=== PATIENT | female | born 1940 | race Caucasian/White ===

== ENCOUNTER 2016-12-12 17:48 | Inpatient (IN) | payer MEDICARE, BC ==
[~2016-12-12] VITALS: Ht 162.6 cm; Wt 70.0 kg
[~2016-12-12 17:48] MED LIST: ALBU8.5H3 IH; ALBU8.5H3 INH; AMIO200T2 PO; ASPI-650; CLOB60CR2 TOP; FERR28TA PO; FURO40TA4 PO; INSU100I14; INSU100I15; MTF1000T PO; MULT-115 PO; POTA20TA8 PO; PRED20TA PO; RIVA20TA PO; ROSU20TA PO; VALS1TAB80 PO
[2016-12-12] MEDS ORDERED: ASPIRIN 81 MG TAB PO STA (18:46)
[2016-12-12] MEDS ORDERED: SOD CHLORIDE 0.9% 1,000 ML IV STA (18:46)
[2016-12-12 18:53] LABS: ADD SCAN DIFF NO
[2016-12-12 18:57] LABS: ALBUMIN 4.1 g/dl (3.3-4.9); POTASSIUM 4.1 mmol/L (3.5-5.1)
[2016-12-12 18:59] LABS: BASOPHILS % 0.4 % (0.0-2.0); BILIRUBIN,INDIRECT 0.1 mg/dl (0-1.1); BILIRUBIN,TOTAL 0.1 mg/dl (0.2-1.3); CREATININE 1.84 mg/dl (0.44-1.00); EOSINOPHILS # 0.2 10^3/ul (0.0-0.5); EOSINOPHILS % 1.8 % (0.0-7.0); HEMATOCRIT 38.7 % (37.0-47.0); HEMOGLOBIN 12.2 g/dl (12.0-16.0); LYMPHOCYTES # 1.5 10^3/ul (0.8-2.9); LYMPHOCYTES % 14.1 % (15.0-51.0); MEAN CORPUSCULAR HEMOGLOBIN 26.8 pg (29.0-33.0); MEAN CORPUSCULAR HGB CONC 31.5 g/dl (32.0-37.0); MEAN CORPUSCULAR VOLUME 84.9 fl (82.0-101.0); MEAN PLATELET VOLUME 10.2 fl (7.4-10.4); MONOCYTES % 9.8 % (0.0-11.0); NEUTROPHIL # 7.6 10^3/ul (1.6-7.5); NEUTROPHILS % 73.5 % (39.0-77.0); PLATELET COUNT 309 10^3/UL (140-415); RED BLOOD COUNT 4.56 10^6/ul (4.20-5.40); RED CELL DISTRIBUTION WIDTH 16.1 % (11.5-14.5); WHITE BLOOD COUNT 10.3 10^3/ul (4.8-10.8)
[2016-12-12 19:00] LABS: ALBUMIN/GLOBULIN RATIO 1.13; CALCIUM 9.8 mg/dl (8.4-10.2); TOTAL PROTEIN 7.7 g/dl (6.1-8.1)
[2016-12-12 19:01] LABS: MAGNESIUM 2.1 mg/dl (1.7-2.5)
[2016-12-12 19:02] LABS: INR 1.05; PROTIME 13.7 Sec (12.2-14.2); PT RATIO 1.1
[2016-12-12 19:12] LABS: TROPONIN-I 0.028 ng/ml (0.00-0.12)
[2016-12-12] MEDS ORDERED: INSU100I12 SQ (19:25)
[2016-12-12] MEDS ORDERED: LANT3I SC (19:26)
[2016-12-12 19:27] LABS: PARTIAL THROMBOPLASTIN TIME 25.8 Sec (25.0-35.0)
[2016-12-12] MEDS ORDERED: RIVA15TA PO (19:27)
--- NOTE | 2016-12-12 19:37 | RADRPT ---
PROCEDURE: CT Brain without contrast. CLINICAL INDICATION: Stroke TECHNIQUE: A CT of the brain was performed on a [employer] 64-slice CT scanner utilizing axial imaging from the skull base through the vertex without IV contrast. Multiplanar reformatted images were made. Images were reviewed on a PACS workstation. The CTDIvol is 39.10 mGy and the DLP is 634 .23 mGycm. One of the following 3 dose reduction techniques were used: Automated exposure control; adjustment of the mA and/or kV according to patient size; or use of iterative reconstruction technique. COMPARISON: 09/19/2012 CT brain FINDINGS: There is no intracranial hemorrhage, mass effect, or midline shift. No extra-axial fluid collection is seen. The ventricles and sulci are age appropriate. Mild diffuse volume loss is present. Subtl e decreased attenuation is present in the bilateral centrum semiovale and periventricular white tavia er compatible with mild chronic microvascular ischemic disease. Mild vascular calcifications are pr esent of the bilateral intracranial internal carotid arteries and the bilateral vertebral arteries. The visualized scalp and calvarium are normal. The bilateral orbits orbits demonstrate sequela of p rior cataract surgery. The bilateral paranasal sinuses, mastoid air cells and middle ear cavities d emonstrate mild mucosal thickening in the right sphenoid sinus. IMPRESSION: 1. No evidence of acute intracranial hemorrhage, infarcts, or acute intracranial pathology. 2. Mild chronic microvascular ischemic disease and mild diffuse volume loss 3. Mild atherosclerotic vascular disease RPTAT: HDC .Aimee Brooke MD, Date Time Electronically viewed and signed by .Aimee Brooke MD, on 12/12/2016 19:37 .C/
--- NOTE | 2016-12-12 19:41 | RADRPT ---
PROCEDURE: XR Chest. CLINICAL INDICATION: Possible cerebrovascular accident. TECHNIQUE: Single frontal view of the chest was obtained COMPARISON: Chest dated 05/17/2009 and 12/28/2015. FINDINGS: Left anterior chest wall dual chamber cardiac pacer. Lead tips again seen over right atrium right v entricle. Cardiomegaly with atherosclerotic calcifications again seen in the thoracic aorta. Coarse dystrophic calcifications again project over the region of the left heart, similar in appearance to prior examinations. Findings otherwise nonspecific Bilateral patchy air space disease There is no pleural effusion or pneumothorax. IMPRESSION: Mild failure. RPTAT: [facility]U Physician Tiny Date Time Electronically viewed and signed by Physician Tiny on 12/12/2016 19:41 RS/
[2016-12-12] MEDS ORDERED: SOD CHLORIDE 0.9% 1,000 ML IV SCH (20:31)
[2016-12-12] MEDS ORDERED: ONDANSETRON 4 MG INJ IV PRN ×2 (21:00)
[2016-12-12] MEDS ORDERED: ROSUVASTATIN 10 MG TAB PO SCH (21:00)
[2016-12-12] MEDS ORDERED: NACL 0.9% 3 ML SYG IV SCH (21:00)
[2016-12-12] MEDS ORDERED: ACETAMINOPHEN 325 MG TAB PO PRN ×2 (21:00)
[2016-12-12] MEDS: ALBUTEROL HFA 8 GM INHALER INH SCH (21:00)
[2016-12-12 21:12] VITALS: TEMP 98
[2016-12-12] MEDS ORDERED: SALMETEROL/FLUTICASONE 250/50 INHA INH ONE (21:30)
[2016-12-12] MEDS ORDERED: DEXTROSE 50% 50 ML SYRINGE IV PRN ×2 (21:30)
[2016-12-12] MEDS ORDERED: RIVAROXABAN 15 MG TABLET PO ONE (21:30)
[2016-12-12] MEDS ORDERED: ASPIRIN 81 MG TAB PO ONE (21:30)
[2016-12-12] MEDS ORDERED: GLUCOSE GEL 15 GRAM TUBE PO PRN ×2 (21:30)
[2016-12-12] MEDS ORDERED: MONTELUKAST 10 MG TAB PO ONE (21:30)
[2016-12-12] MEDS ORDERED: GLUCAGON 1 MG INJ IM PRN (21:30)
[2016-12-12] MEDS ORDERED: GLUCOSE GEL 15 GRAM TUBE BUCCAL PRN (21:30)
[2016-12-12] MEDS ORDERED: PANTOPRAZOLE (EC) 40 MG TAB PO ONE (21:30)
--- NOTE | 2016-12-12 21:41 | HP ---
DATE OF ADMISSION: 12/12/2016 REASON FOR ADMISSION: Altered mental status, dysarthria and facial twitching. HISTORY OF PRESENT ILLNESS: This 76-year-old female was in her usual state of health until 4 days a go, when she said that she started feeling very tired. She then developed some facial twitching and difficulty finding words. The patient does have a history of a CVA. She also has vascular disease including coronary artery disease, having had a stent placement. She has chronic atrial fibrillati on and has been on Xarelto. She has a cardiac pacemaker. The patient as she talks to me is having trouble finding words. She is very forgetful. I told her that she would be admitted to the [facility], and by the time I was leaving, she had completely forgotten and asked me if she had an appointmen t to see me tomorrow in my office. The patient denies any loss of consciousness. I did speak to he r son. He said that she has been tired but she has not had any actual seizure activity, head trauma , loss of consciousness, etc. The patient lives with her . She has had difficulty getting u p from bed, but she says that when she is up, she is able to walk. She denies any headache. PAST MEDICAL HISTORY: Remarkable for hypertension; breast cancer, status post lumpectomy and radiat ion treatment in 1993; hyperlipidemia; allergic rhinitis; gastroesophageal reflux disease; iron defi ciency anemia; colon cancer; left lower lobe pneumonia; peripheral neuropathy; CVA; coronary artery disease; cardiac pacemaker; chronic atrial fibrillation; chronic kidney disease stage III; asthma wi th a chronic cough. SURGICAL HISTORY: Right lumpectomy in 1993, total abdominal hysterectomy with BSO in 1990, colon ca ncer resection in the year 1999, coronary artery stents, cardiac pacemaker. FAMILY HISTORY: Father at age 55 with a CVA. Mother age 65 of heart disease. SOCIAL HISTORY: The patient does not smoke. She was a smoker but stopped more than 10 years ago. Alcohol socially. MEDICATIONS: Include the followin. Albuterol inhaler 2 puffs q.i.d. p.r.n. 2. Xarelto 15 mg with dinner daily. 3. Amiodarone 200 mg daily. 4. Rosuvastatin 30 mg at bedtime. 5. Furosemide 40 mg three times a day. 6. Potassium chloride 30 mEq twice a day. 7. Lantus insulin 60 units at bedtime. 8. Humalog insulin 10 units subQ t.i.d. with each meal. 9. Metformin 1000 mg twice a day. 10. Singulair 10 mg a day. 11. Vitamin D 3000 units a day. 12. Symbicort 160/4.5 two puffs twice a day. PHYSICAL EXAMINATION: GENERAL: At this time reveals a well-developed obese female. No apparent distress. In speaking to her, she is having trouble finding some words. VITAL SIGNS: Temperature 97.7, pulse of 68, respirations 17, blood pressure 144/75, O2 saturation 9 7% on room air. HEAD: Normocephalic. EYES: Extraocular muscles intact. She has intermittent and episodic facial twitching. NOSE AND MOUTH: Normal. NECK: Supple. No neck vein distention. LUNGS: Clear to auscultation. HEART: Regular rhythm. No murmurs, gallops or rub. ABDOMEN: Soft with a bulging ventral hernia. No masses or megaly, nontender. EXTREMITIES: No peripheral edema. NEUROLOGIC: Cranial nerves seem intact. However, she has intermittent facial twitching. No obviou s focal neurologic deficits. She is able to move all extremities. She does not have any tremor act ivity at this time. LABORATORY TESTS: White blood count 10,300, hemoglobin 12.2, hematocrit 38.7, platelet count 309,00 0. Coagulation: INR 1.05. Sodium 141, potassium 4.1, BUN 40, creatinine 1.84, glucose of 81. IMAGING: CAT scan of the brain. No evidence of acute intracranial hemorrhage, infarcts or acute in tracranial pathology. Mild chronic microvascular ischemic disease and mild diffuse volume loss, mil d atherosclerotic vascular disease. IMPRESSION: This patient presents now with several outstanding neurologic abnormalities. She is cl early having some episodic facial twitching. She also has difficulty finding words and is having so me memory loss. She has no other focal neurologic deficits, and her CAT scan does not show any acut e infarct, hemorrhage or mass. She has had a stroke in the past. She is unable to have an MRI scan because of a pacemaker. She does have chronic atrial fibrillation. However, she has been on Xarel to daily. I am concerned that she may have had another stroke. I am also concerned about possibili ty of seizure activity with the facial twitching. She clearly has some recent memory loss and diffi culty finding words. PLAN: 1. Neurology consultation with Dr. Dwyer, who knows the patient from her previous CVA. 2. Continue her routine medication. 3. Sliding scale insulin coverage. 4. Speech therapy, physical therapy and occupational therapy. 5. Admit to telemetry bed. 6. Discussed with family. Dictated By: ZHOU VALDEZ MD, ND/MENDEL Conf#: [id number] DID#: [id number]
--- NOTE | 2016-12-12 21:43 | ERA ---
ER Documentation Chief Complaint Date/Time DATE: 12/12/16 TIME: 21:39 Chief Complaint ALOC W/ DYSPHAGIA X2 DAYS, HX STROKE HPI This is a 76-year-old female who 4 days ago at the onset of diffuse facial twitching. She describes the twitching as electric like twitch which causes her eyes to blink and cheeks to contract and jaw to contract. She is also having periods of word finding difficulty with some expressive aphasia. She feels generally weak but no focal weakness or neurological complaints. She is also having some episodes of blurry vision where she has poor distance judgment. She says she was reaching for a glass on the table had a hard time finding it due to her miss judging of the distance. No headaches no fever no neck pain no chest pain shortness of breath no cough no abdominal pain nausea vomiting or diarrhea. ROS All systems reviewed and are negative except as per history of present illness. Medications Home Meds Active Scripts Albuterol Sulfate* (Proair HFA*) 8.5 Gm Hfa.aer.ad, 2 PUFF INH Q4, #1 INHALER Prov:CAROLIN BERNAL DO 12/28/15 Reported Medications Rivaroxaban* (Xarelto*) 15 Mg Tablet, 15 MG PO DAILY, TAB 12/12/16 Insulin Glargine* (Lantus*) 100 Unit/Ml Soln, 16 UNIT SC QHS, #1 VIAL 12/12/16 Insulin Lispro (Humalog Kwikpen U-100) 100 Unit/1 Ml Insuln.pen, 10 UNIT SQ TID Y for WITH MEALS 12/12/16 Rosuvastatin Calcium* (Crestor*) 20 Mg Tablet, 30 MG PO QHS for 30 Days, #45 TAB 12/28/15 Amiodarone Hcl* (Amiodarone Hcl*) 200 Mg Tablet, 200 MG PO DAILY, #30 TAB 12/28/15 Potassium Chloride* (Klor-Con*) 10 Meq Tabsr, 30 MEQ PO BID, TAB.SA 12/28/15 Furosemide (Lasix) 40 Mg Tab, 40 MG PO TID 07/13/12 Metformin* (Glucophage*) 1,000 Mg Tablet, 1000 MG PO BID 11/06/10 Discontinued Reported Medications Insulin Lispro (Humalog) 100 U/Ml Insuln.pen 12/28/15 Insulin Glargine,Hum.rec.anlog (Lantus Solostar) 100 Units/Ml Pen 12/28/15 Rivaroxaban* (Xarelto*) 20 Mg Tablet, 20 MG PO WITH DINNER, TAB 12/28/15 Valsartan-Hydrochlorothiazide (Valsartan-HCTZ) 320-12.5 Mg Tablet, 1 TAB PO DAILY, #30 TAB 12/28/15 Clobetasol Propionate* (Clobetasol Propionate*) 60 Gm Cream.gm., 1 APPLIC TOP BID, TUB 12/28/15 Ferrous Sulfate (Ferrous Sulfate) 1 Tab Tablet, 1 TAB PO DAILY 07/16/12 Multivitamins (One Daily Multi-Vitamin) 1 Tab Tablet, 1 TAB PO DAILY 07/16/12 Albuterol Sulfate* (Proair HFA*) 8.5 Gm Hfa.aer.ad, 8.5 GM IH QID PRN 07/13/12 Aspirin (Aspirin) 81 Mg Tablet 11/06/10 Discontinued Scripts Prednisone* (Prednisone*) 20 Mg Tab, 40 MG PO DAILY for 4 Days, TAB Prov:CAROLIN BERNAL DO 12/28/15 Allergies Allergies: Coded Allergies: codeine (Verified Adverse Reaction, Intermediate, STOMACH ACHE, 12/12/16) PMhx/Soc History of Surgery: Yes ([employer] and pacemaker, mastectomy, colon resection) Anesthesia Reaction: No Hx Neurological Disorder: Yes (small stroke from before) Hx Respiratory Disorders: No Hx Cardiac Disorders: Yes (CAD, Hyperlipidemia) Hx Psychiatric Problems: No Hx Miscellaneous Medical Probl: No Hx Alcohol Use: No Hx Substance Use: No Hx Tobacco Use: No Smoking Status: Never smoker FmHx Family History: No coronary disease Physical Exam Vitals Vital Signs Date Time Temp Pulse Resp B/P Pulse Ox O2 Delivery O2 Flow Rate FiO2 12/12/16 21:12 98.0 72 16 148/74 100 Room Air 12/12/16 20:00 68 17 144/75 97 Room Air 12/12/16 18:26 97.7 69 18 140/69 99 Room Air 12/12/16 17:51 98.4 74 20 135/65 96 Physical Exam Const: Well-developed, well-nourished Head: Atraumatic, normocephalic Eyes: Normal Conjunctiva, PERRLA, EOMI, normal sclera, no nystagmus ENT: Normal External Ears, Nose and Mouth, moist mucus membranes. Neck: Full range of motion. No meningismus, no lymphadenopathy. Resp: Clear to auscultation bilaterally, no wheezing, rhonchi, rales Cardio: Regular rate and rhythm, no murmurs, S1 S2 present Abd: Soft, non tender x 4, non distended. Normal bowel sounds, no guarding or rebound, no pulsitile abdominal masses or bruits Skin: No petechiae or rashes, no ecchymosis , no maculopapular rash Back: No midline or flank tenderness Ext: No cyanosis, or edema, FROM x 4, normal inspection, neurovascularly intact x 4, slow speech is purposeful with some expressive aphasia at times and word finding difficulty, has intermittent random diffuse muscle spasm of the facial muscles Neur: Awake and alert, STR 5/5 x 4, sensation intact x 4, no focal findings, cerebellum intact Psych: Normal Mood and Affect Result Diagram: 12/12/16182312/12/161823 Results 24 hrs Laboratory Tests Test 12/12/16 18:24 Activated Partial Thromboplast Time 25.8Sec Alanine Aminotransferase (ALT/SGPT) 29IU/L Albumin 4.1g/dl Albumin/Globulin Ratio 1.13 Alkaline Phosphatase 77IU/L Anion Gap 21 Aspartate Amino Transf (AST/SGOT) 35IU/L Basophils # 0.010^3/ul Basophils % 0.4% Blood Urea Nitrogen 40mg/dl Calcium Level 9.8mg/dl Carbon Dioxide Level 25mmol/L Chloride Level 99mmol/L Creatinine 1.84mg/dl Direct Bilirubin 0.00mg/dl Eosinophils # 0.210^3/ul Eosinophils % 1.8% Globulin 3.60g/dl Glucose Level 81mg/dl Hematocrit 38.7% Hemoglobin 12.2g/dl INR International Normalized Ratio 1.05 Indirect Bilirubin 0.1mg/dl Lymphocytes # 1.510^3/ul Lymphocytes % 14.1% Magnesium Level 2.1mg/dl Mean Corpuscular Hemoglobin 26.8pg Mean Corpuscular Hemoglobin Concent 31.5g/dl Mean Corpuscular Volume 84.9fl Mean Platelet Volume 10.2fl Monocytes # 1.010^3/ul Monocytes % 9.8% Neutrophils # 7.610^3/ul Neutrophils % 73.5% Nucleated Red Blood Cells # 0.010^3/ul Nucleated Red Blood Cells % 0.0/100WBC Platelet Count 04503^3/UL Potassium Level 4.1mmol/L Prothrombin Time 13.7Sec Prothrombin Time Ratio 1.1 Red Blood Count 4.5610^6/ul Red Cell Distribution Width 16.1% Sodium Level 141mmol/L Total Bilirubin 0.1mg/dl Total Protein 7.7g/dl Troponin I 0.028ng/ml White Blood Count 10.310^3/ul Current Medications Medications (Trade) Dose Ordered Sig/Mahendra Route PRN Reason Start Time Stop Time Status Last Admin Dose Admin Sodium Chloride (NS) 1,000 ml @ 1,000 mls/hr Q1H STAT IV 12/12/16 18:46 12/12/16 19:45 DC 12/12/16 18:57 Aspirin 162 mg 162 mg ONCE STAT PO 12/12/16 18:46 12/12/16 18:49 DC 12/12/16 18:57 Sodium Chloride (NS) 1,000 ml @ 80 mls/hr [id number] IV 12/12/16 20:31 12/13/16 09:00 Ondansetron HCl (Zofran Inj) 4 mg ER BRIDGE PRN IV NAUSEA AND/OR VOMITING 12/12/16 21:00 12/13/16 20:59 Acetaminophen (Tylenol Tab) 650 mg ER BRIDGE PRN PO MILD PAIN/FEVER 12/12/16 21:00 12/13/16 20:59 IV Flush (NS 3 ml) 3 ml PER PROTOCOL IV 12/12/16 21:00 Ondansetron HCl (Zofran Inj) 4 mg Q6H PRN IV NAUSEA AND/OR VOMITING 12/12/16 21:00 Acetaminophen (Tylenol Tab) 650 mg Q6H PRN PO PAIN LEVEL 1-3 OR FEVER 12/12/16 21:00 Albuterol (Ventolin Hfa) 2 puff Q4 INH 12/12/16 21:00 Amiodarone HCl (Cordarone) 200 mg DAILY PO 12/13/16 09:00 Rivaroxaban (Xarelto) 15 mg WITH DINNER PO 12/13/16 18:00 Rosuvastatin Calcium (Crestor) 30 mg QHS PO 12/12/16 21:00 12/12/16 21:26 DC Pantoprazole (Protonix Tab) 40 mg ONCE ONCE PO 12/12/16 21:30 12/12/16 21:31 DC Aspirin (Aspirin) 81 mg ONCE ONCE PO 12/12/16 21:30 12/12/16 21:31 DC Rivaroxaban (Xarelto) 15 mg ONCE ONCE PO 12/12/16 21:30 12/12/16 21:31 DC Montelukast Sodium (Singulair) 10 mg ONCE ONCE PO 12/12/16 21:30 12/12/16 21:31 DC Insulin Aspart (Novolog Insulin Pen) NOVOLOG *MILD* ALGORITHM WITH MEALS BEDTIME SC 12/13/16 08:00 Salmeterol Xinafoate/ Fluticasone (Advair 250/50 Diskus) 1 inh ONCE ONCE INH 12/12/16 21:30 12/12/16 21:31 DC Miscellaneous Information 1 ea NOTE XX 12/12/16 21:30 Glucose (Glutose) 15 gm Q15M PRN PO DECREASED GLUCOSE 12/12/16 21:30 Glucose (Glutose) 22.5 gm Q15M PRN PO DECREASED GLUCOSE 12/12/16 21:30 Dextrose (D50w Syringe) 25 ml Q15M PRN IV DECREASED GLUCOSE 12/12/16 21:30 Dextrose (D50w Syringe) 50 ml Q15M PRN IV DECREASED GLUCOSE 12/12/16 21:30 Glucagon (Glucagen) 1 mg Q15M PRN IM DECREASED GLUCOSE 12/12/16 21:30 Glucose (Glutose) 15 gm Q15M PRN BUCCAL DECREASED GLUCOSE 12/12/16 21:30 Rosuvastatin Calcium (Crestor) 30 mg QHS PO 12/13/16 21:00 UNV Procedures/MDM PROCEDURE: CT Brain without contrast. CLINICAL INDICATION: Stroke TECHNIQUE: A CT of the brain was performed on a [employer] 64-slice CT scanner utilizing axial imaging from the skull base through the vertex without IV contrast. Multiplanar reformatted images were made. Images were reviewed on a PACS workstation. The CTDIvol is 39.10 mGy and the DLP is 634.23 mGycm. One of the following 3 dose reduction techniques were used: Automated exposure control; adjustment of the mA and/or kV according to patient size; or use of iterative reconstruction technique. COMPARISON: 09/19/2012 CT brain FINDINGS: There is no intracranial hemorrhage, mass effect, or midline shift. No extra- axial fluid collection is seen. The ventricles and sulci are age appropriate. Mild diffuse volume loss is present. Subtle decreased attenuation is present in the bilateral centrum semiovale and periventricular white matter compatible with mild chronic microvascular ischemic disease. Mild vascular calcifications are present of the bilateral intracranial internal carotid arteries and the bilateral vertebral arteries. The visualized scalp and calvarium are normal. The bilateral orbits orbits demonstrate sequela of prior cataract surgery. The bilateral paranasal sinuses , mastoid air cells and middle ear cavities demonstrate mild mucosal thickening in the right sphenoid sinus. IMPRESSION: 1. No evidence of acute intracranial hemorrhage, infarcts, or acute intracranial pathology. 2. Mild chronic microvascular ischemic disease and mild diffuse volume loss 3. Mild atherosclerotic vascular disease RPTAT: HDC .Aimee Brooke MD, Date Time Electronically viewed and signed by .Aimee Brooke MD, MD on 12/12/2016 19: 37 .C/ CC: LINDA AHUJA DO PROCEDURE: XR Chest. CLINICAL INDICATION: Possible cerebrovascular accident. TECHNIQUE: Single frontal view of the chest was obtained COMPARISON: Chest dated 05/17/2009 and 12/28/2015. FINDINGS: Left anterior chest wall dual chamber cardiac pacer. Lead tips again seen over right atrium right ventricle. Cardiomegaly with atherosclerotic calcifications again seen in the thoracic aorta. Coarse dystrophic calcifications again project over the region of the left heart, similar in appearance to prior examinations. Findings otherwise nonspecific Bilateral patchy air space disease There is no pleural effusion or pneumothorax. IMPRESSION: Mild failure. RPTAT: [facility]U Physician Tiny Date Time Electronically viewed and signed by Physician Tiny on 12/12/2016 19:41 RS/ CC: LINDA AHUJA DO Patient was seen by neurology and the primary care physician. Patient will get an EEG this could be a possible seizure. There is no evidence of calcium or magnesium abnormalities. Could be some type of tick but is likely some type of deep cerebral event. The patient does have a pacemaker which makes MRI limiting. We will admit to the hospital for further workup Departure Diagnosis: Primary Impression: CVA (cerebral vascular accident) Qualified Code: I63.9 - Cerebrovascular accident (CVA), unspecified mechanism Condition: Stable LINDA AHUJA DO Dec 12, 2016 21:43
[2016-12-12 22:43] VITALS: PULSE 72
[2016-12-12 22:48] VITALS: BP 182/78; RESP 20
[2016-12-13] VITALS (14 sets, daily range): BP systolic 121–167; BP diastolic 58–75; PULSE 60–75; RESP 16–20; Ht 162.6 cm; Wt 70.0 kg
[2016-12-13] MEDS: ALBUTEROL HFA 8 GM INHALER INH SCH ×6 (01:00→21:16)
--- NOTE | 2016-12-13 01:27 | SP ---
DATE OF PROCEDURE: REFERRING PHYSICIAN: Nasir Valdez MD Thank you for asking me to see the patient with you. HISTORY OF PRESENT ILLNESS: The patient is a 76-year-old with a past medical history of anticoagula tion. The patient on mechanical valve in which the patient had 3 days of word finding difficulty, e xpressive aphasia for 2 to 3 days in which the patient was admitted to the hospital today per Dr. Graf. He called me for more evaluation and treatment. The patient accompanied by her son in e room who stated the patient has 2 sisters and her calling him for these events in which he advised her to go to the emergency room for more evaluation and treatment. PAST MEDICAL HISTORY: Which include mechanical valve, anticoagulation, hypertension, dyslipidemia. MEDICATIONS: Per reconcile sheet. SOCIAL HISTORY: The patient lives with her , accompanied by her son. Does not smoke, does n ot drink, does not use any street drugs. PHYSICAL EXAMINATION: GENERAL: The patient is alert, awake, oriented for time, place, and person. She can follow simple commands without difficulty. She has word finding difficulty, lack of communication. CRANIAL NERVES: Cranial nerve II: Pupils equal on both sides, reactive to light. Cranial nerves I II, IV, and : Extraocular muscles. No nystagmus. Cranial nerve V: Equal sensation to face. Cr anial nerve VII: Symmetrical face. Cranial nerve VIII: Decreased hearing bilaterally. Cranial ne rves IX, X: Elevates palate. Cranial nerve XI: Elevates shoulder 5/5. Cranial nerve XII: With s traight tongue. MOTOR: Decreased right hand pearl maker, 4+/5. Sensation decreased for glove and sock area for light touc h and temperature. COORDINATION: [id number] test intact. HEART: Regular rate and rhythm. LUNGS: Equal breath sounds. ABDOMEN: Soft, lax, nondistended, nontender. ASSESSMENT AND PLAN 1. The patient is a 76-year-old lady with a past medical history with possibility of new-onset lucero sient ischemic attack versus stroke. The patient already on Xarelto, while adjusting her dose, she is getting 15 mg. 2. Possibility of underlying seizure activity. Follow up the patient with electroencephalogram for more evaluation and treatment. We will keep her on Keppra 500 mg twice a day. 3. We will keep the patient under fall precautions. Will order for her physical therapy for balanc e and gait evaluation. 4. History of aphasia. We will follow up the patient with speech therapy for more evaluation and t reatment. 5. We will follow up the patient with carotid Doppler and 2D echocardiogram. 6. I counseled the patient and her son about her status. Again, thank you for asking me to see the patient with you. Dictated By: KAITLIN JACK MD NA/NTS Conf#: [id number] DID#: [id number] CC: NASIR VALDEZ MD;*EndCC*
[2016-12-13] MEDS: AMIODARONE 200 MG TAB PO SCH (08:36)
[2016-12-13] MEDS: INSULIN ASPART [NOVOLOG] 3 ML PEN SC SCH ×4 (08:44→21:14)
--- NOTE | 2016-12-13 08:59 | PN ---
Date/Time of Note Date/Time of Note DATE: 12/13/16 TIME: 08:40 Assessment/Plan VTE Prophylaxis VTE Prophylaxis Intervention: other Lines/Catheters IV [facility]ter Type (from [facility]): [facility] Urinary Cath still in place: No Assessment/Plan Chief Complaint/Hosp Course 1. Suspect she has had a CVA. Rule out seizure activity. Her CAT scan is unremarkable. Cannot do a MRI because of pacemaker. Echocardiogram, carotid duplex scan ordered. Neurology evaluation in progress with EEG ordered. Will consult cardiology. 2. Controlled atrial fibrillation with pacemaker 3. Anticoagulated on Xarelto 4. Type 2 diabetes mellitus 5. Hypertension 6. Coronary artery disease status post stent placement 7. Asthma 8. Chronic kidney disease. Problems: Subjective 24 Hr Interval Summary Free Text/Dictation She is awake and responsive . She continues to have difficulty finding words. She continues to have episodic facial twitching. She is able to get up and walk. Constitutional: improved Respiratory: no complaints Cardiovascular: no complaints Gastrointestinal: no complaints Genitourinary: no complaints Neurologic: confusion Exam/Review of Systems Vital Signs Vitals Vital Signs Date Time Temp Pulse Resp B/P Pulse Ox O2 Delivery O2 Flow Rate FiO2 12/13/16 08:23 66 12/13/16 07:08 98.1 18 137/69 98 12/13/16 00:00 Room Air Intake and Output 12/12/16 12/12/16 12/13/16 15:00 23:00 07:00 Intake Total 1000 ml Balance 1000 ml Exam Constitutional: alert, obese Respiratory: clear to auscultation Cardiovascular: regular rate and rhythm Gastrointestinal: non-tender, soft Musculoskeletal: nl extremities to inspection 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 She is forgetful. She has episodic facial twitching. Results Result Diagram: 12/12/16182312/12/161823 Results 24 hrs Laboratory Tests Test 12/12/16 18:24 12/13/16 08:06 Activated Partial Thromboplast Time 25.8 Alanine Aminotransferase (ALT/SGPT) 29 Albumin 4.1 Albumin/Globulin Ratio 1.13 Alkaline Phosphatase 77 Anion Gap 21 H Aspartate Amino Transf (AST/SGOT) 35 Basophils # 0.0 Basophils % 0.4 Blood Urea Nitrogen 40 H Calcium Level 9.8 Carbon Dioxide Level 25 Chloride Level 99 Creatinine 1.84 H Direct Bilirubin 0.00 Eosinophils # 0.2 Eosinophils % 1.8 Globulin 3.60 H Glucose Level 81 Hematocrit 38.7 # Hemoglobin 12.2 # INR International Normalized Ratio 1.05 Indirect Bilirubin 0.1 Lymphocytes # 1.5 Lymphocytes % 14.1 L Magnesium Level 2.1 Mean Corpuscular Hemoglobin 26.8 L Mean Corpuscular Hemoglobin Concent 31.5 L Mean Corpuscular Volume 84.9 Mean Platelet Volume 10.2 # Monocytes # 1.0 H Monocytes % 9.8 Neutrophils # 7.6 H Neutrophils % 73.5 Nucleated Red Blood Cells # 0.0 Nucleated Red Blood Cells % 0.0 Platelet Count 309 Potassium Level 4.1 Prothrombin Time 13.7 Prothrombin Time Ratio 1.1 Red Blood Count 4.56 # Red Cell Distribution Width 16.1 #H Sodium Level 141 Total Bilirubin 0.1 L Total Protein 7.7 Troponin I 0.028 White Blood Count 10.3 Bedside Glucose 161 Medications Medications Current Medications Sodium Chloride (NS) 1,000 ml @ 80 mls/hr [id number] IV ; Start 12/12/16 at 20:31; Stop 12/13/16 at 09:00 Ondansetron HCl (Zofran Inj) 4 mg Q6H PRN IV NAUSEA AND/OR VOMITING; Start 12/12 at 21:00 Acetaminophen (Tylenol Tab) 650 mg Q6H PRN PO PAIN LEVEL 1-3 OR FEVER; Start at 21:00 Albuterol (Ventolin Hfa) 2 puff Q4 INH Last administered on 12/13/16t 05:31; Admin Dose 2 PUFF; Start 12/12/16 at 21:00 Amiodarone HCl (Cordarone) 200 mg DAILY PO ; Start 12/13/16 at 09:00 Miscellaneous Information 1 ea NOTE XX ; Start 12/12/16 at 21:30 Glucose (Glutose) 15 gm Q15M PRN PO DECREASED GLUCOSE; Start 12/12/16 at 21:30 Glucose (Glutose) 22.5 gm Q15M PRN PO DECREASED GLUCOSE; Start 12/12/16 at 21:30 Dextrose (D50w Syringe) 25 ml Q15M PRN IV DECREASED GLUCOSE; Start 12/12/16 at 21:30 Dextrose (D50w Syringe) 50 ml Q15M PRN IV DECREASED GLUCOSE; Start 12/12/16 at 21:30 Glucagon (Glucagen) 1 mg Q15M PRN IM DECREASED GLUCOSE; Start 12/12/16 at 21:30 Glucose (Glutose) 15 gm Q15M PRN BUCCAL DECREASED GLUCOSE; Start 12/12/16 at 21: 30 Rosuvastatin Calcium (Crestor) 30 mg QHS PO ; Start 12/13/16 at 21:00; Status UNV Miscellaneous Information (*Order Clarification Bulletin) ROSUVASTATIN 30MG: PLEASE HAVE FAM... Q8H XX Last administered on 12/13/16 08:30; Admin Dose 1 EA ; Start 12/13/16 at 08:30 ZHOU VALDEZ MD Dec 13, 2016 08:51
--- NOTE | 2016-12-13 09:38 | RADRPT ---
PROCEDURE: US Carotids. CLINICAL INDICATION: bruit , CVA TECHNIQUE: Multiple sonographic of the carotid bifurcation region and vertebral arteries were obta ined utilizing philippe scale, duplex and color-flow imaging. The images were reviewed on a PACS worksta tion. COMPARISON: No prior studies are available for comparison. FINDINGS: Evaluation of the right carotid bifurcation region reveals mild calcific atherosclerotic disease. Evaluation of the left carotid bifurcation region reveals mild calcific atherosclerotic disease. There is antegrade flow within the vertebral arteries bilaterally. RIGHT CAROTID MEASUREMENTS: Common Carotid Sauafe59 (cm/sec) Internal Carotid Artery - .6 (cm/sec) Internal Carotid Artery - mid63.5 (cm/sec) Internal Carotid Artery - zezqnm63.4 (cm/sec) Internal Carotid/Common Carotid1.16 LEFT CAROTID MEASUREMENTS: Common Carotid Uwmkjy20 (cm/sec) Internal Carotid Artery - tfvkwush99 (cm/sec) Internal Carotid Artery - mid66 (cm/sec) Internal Carotid Artery - eleapf34.4 (cm/sec) Internal Carotid/Common Carotid1.05 RPTAT: AA IMPRESSION: No evidence for hemodynamically significant stenosis in the bilateral internal carotid arteries - va lidated velocity measurements with angiographic measurements, velocity criteria are extrapolated fro m diameter data as defined by the Society of Radiologists in Ultrasound Consensus Conference Radiolo gy 2003; 229;340-346. This study does indirectly reference the measurement of the distal ICA diamet er as the denominator for stenosis measurement. Normal antegrade flow in the vertebral arteries bilaterally. .Deandre Bright MD, Date Time Electronically viewed and signed by .Deandre Bright MD, MD on 12/13/2016 09:38 .S/
[2016-12-13 10:17] LABS: ADD SCAN DIFF NO
[2016-12-13 10:19] LABS: BASOPHILS % 0.6 % (0.0-2.0); EOSINOPHILS # 0.2 10^3/ul (0.0-0.5); EOSINOPHILS % 3.7 % (0.0-7.0); HEMATOCRIT 34.7 % (37.0-47.0); HEMOGLOBIN 10.8 g/dl (12.0-16.0); LYMPHOCYTES # 1.1 10^3/ul (0.8-2.9); LYMPHOCYTES % 19.6 % (15.0-51.0); MEAN CORPUSCULAR HEMOGLOBIN 26.7 pg (29.0-33.0); MEAN CORPUSCULAR HGB CONC 31.1 g/dl (32.0-37.0); MEAN CORPUSCULAR VOLUME 85.7 fl (82.0-101.0); MONOCYTE # 0.6 10^3/ul (0.3-0.9); MONOCYTES % 10.7 % (0.0-11.0); NEUTROPHIL # 3.5 10^3/ul (1.6-7.5); NEUTROPHILS % 65.2 % (39.0-77.0); PLATELET COUNT 255 10^3/UL (140-415); RED BLOOD COUNT 4.05 10^6/ul (4.20-5.40); RED CELL DISTRIBUTION WIDTH 16.2 % (11.5-14.5); WHITE BLOOD COUNT 5.4 10^3/ul (4.8-10.8)
[2016-12-13 10:33] LABS: ALBUMIN 3.7 g/dl (3.3-4.9)
[2016-12-13 10:35] LABS: CREATININE 1.51 mg/dl (0.44-1.00)
[2016-12-13 10:36] LABS: ALBUMIN/GLOBULIN RATIO 1.42; CALCIUM 8.9 mg/dl (8.4-10.2); PHOSPHORUS 3.9 mg/dl (2.5-4.9); TOTAL PROTEIN 6.3 g/dl (6.1-8.1)
[2016-12-13 10:37] LABS: MAGNESIUM 1.9 mg/dl (1.7-2.5)
[2016-12-13 10:48] LABS: POTASSIUM 3.4 mmol/L (3.5-5.1)
--- NOTE | 2016-12-13 17:07 | CONS ---
Date/Time of Note Date/Time of Note DATE: 12/13/16 TIME: 16:46 Assessment/Plan Assessment/Plan Additional Assessment/Plan 76 yowf w/ CAD (s/p PCI), PAF (xarelto, amiodarone), s/p PPM, htn, and hld who presentes w/ facial twitches, word finding issues, and short tem memory loss. Overall presentation concerning for a stroke. ? if it possibly embolic vs due to small vessel disease. If considered embolic, pt is on xarelto already, and she states she is compliant. Pt is not on any meds that should interfere w/ xarelto (ie. rimfampin, carbamazepine, Sunriver's wort). Will review TTE, but could consider a SONNY to eval for possible xarelto failure (eval RASHARD) or look for other causes (ie. plaque in the aorta). Pt is in sinus rhythm on ECG and telemetry. Not clear at this point if this could be considered xarelto failure , but if that becomes a consideration, can change to eliquis or pradaxa (the most potent of the NOACs). Continue aspirin, statin, amiodarone and xarelto. Consultation Date/Type/Reason Admit Date/Time Dec 12, 2016 at 20:32 Date of Consultation: Dec 13, 2016 Type of Consultation: Cardiology Reason for Consultation afib, stroke Hx of Present Illness Complex 76 yowf w/ CAD (s/p PCI), PAF (xarelto, amiodarone), PPM, htn, and hld who presented b/c difficulty with facial twitching and wording finding for the last few days. In addition to that, pt is having issues with short term memory. She denies cp, sob, or palpitations. Pt states she has been compliant with her meds (she has a pillbox), including xarelto. Admission ECG reveals A-sensed and V-paced at 68. Telemetry also reveals mostly sinus rhythm. Carotid US does not reveal any severe stenosis. Constitutional: improved Respiratory: no complaints Cardiovascular: no complaints Gastrointestinal: no complaints Genitourinary: no complaints Neurologic: confusion Past Medical History CAD - PCI Afib (PAF) - on xarelto, amiodarone s/p PPM htn breast cancer (s/p lumpectomy in 94) hld GERD colon CA LLL PNA CKD Family History Significant Family History: no pertinent family hx Social History non-smoker Smoking Status: Never smoker Exam/Review of Systems Vital Signs Vitals Vital Signs Date Time Temp Pulse Resp B/P Pulse Ox O2 Delivery O2 Flow Rate FiO2 12/13/16 16:08 75 12/13/16 15:40 98.1 18 167/75 96 12/13/16 00:00 Room Air Intake and Output 12/12/16 12/12/16 12/13/16 15:00 23:00 07:00 Intake Total 1000 ml Balance 1000 ml Exam Constitutional: alert, No distress Head: atraumatic, normocephalic Eyes: nl sclera Neck: No jvd Respiratory: clear to auscultation Cardiovascular: other (2/6 AWA), regular rate and rhythm Extremities: No edema Neurological: other (answers questions appropriately; see neurologist's note for complete exam) Results A-sensed, V-paced @ 68 Result Diagram: 12/13/16 0935 12/13/16 0935 Results 24 hrs Laboratory Tests Test 12/12/16 18:24 12/13/16 08:06 12/13/16 09:35 12/13/16 11:25 Activated Partial Thromboplast Time 25.8 Alanine Aminotransferase (ALT/SGPT) 29 35 Albumin 4.1 3.7 Albumin/Globulin Ratio 1.13 1.42 Alkaline Phosphatase 77 70 Anion Gap 21 H 17 H Aspartate Amino Transf (AST/SGOT) 35 31 Basophils # 0.0 0.0 Basophils % 0.4 0.6 Blood Urea Nitrogen 40 H 31 H Calcium Level 9.8 8.9 Carbon Dioxide Level 25 25 Chloride Level 99 99 Creatinine 1.84 H 1.51 H Direct Bilirubin 0.00 0.00 Eosinophils # 0.2 0.2 Eosinophils % 1.8 3.7 Globulin 3.60 H 2.60 Glucose Level 81 233 #H Hematocrit 38.7 # 34.7 L Hemoglobin 12.2 # 10.8 L INR International Normalized Ratio 1.05 Indirect Bilirubin 0.1 0.0 Lymphocytes # 1.5 1.1 Lymphocytes % 14.1 L 19.6 Magnesium Level 2.1 1.9 Mean Corpuscular Hemoglobin 26.8 L 26.7 L Mean Corpuscular Hemoglobin Concent 31.5 L 31.1 L Mean Corpuscular Volume 84.9 85.7 Mean Platelet Volume 10.2 # 10.0 Monocytes # 1.0 H 0.6 Monocytes % 9.8 10.7 Neutrophils # 7.6 H 3.5 Neutrophils % 73.5 65.2 Nucleated Red Blood Cells # 0.0 0.0 Nucleated Red Blood Cells % 0.0 0.0 Platelet Count 309 255 Potassium Level 4.1 3.4 L Prothrombin Time 13.7 Prothrombin Time Ratio 1.1 Red Blood Count 4.56 # 4.05 L Red Cell Distribution Width 16.1 #H 16.2 H Sodium Level 141 138 Total Bilirubin 0.1 L 0.0 L Total Protein 7.7 6.3 # Troponin I 0.028 White Blood Count 10.3 5.4 # Bedside Glucose 161 279 H Parathyroid Hormone (Intact) Phosphorus Level 3.9 Medications Medications Current Medications Ondansetron HCl (Zofran Inj) 4 mg Q6H PRN IV NAUSEA AND/OR VOMITING; Start 12/12 at 21:00 Acetaminophen (Tylenol Tab) 650 mg Q6H PRN PO PAIN LEVEL 1-3 OR FEVER; Start at 21:00 Albuterol (Ventolin Hfa) 2 puff Q4 INH Last administered on 12/13/16 12:08; Admin Dose 2 PUFF; Start 12/12/16 at 21:00 Amiodarone HCl (Cordarone) 200 mg DAILY PO Last administered on 12/13/16 08:36 ; Admin Dose 200 MG; Start 12/13/16 at 09:00 Miscellaneous Information 1 ea NOTE XX ; Start 12/12/16 at 21:30 Glucose (Glutose) 15 gm Q15M PRN PO DECREASED GLUCOSE; Start 12/12/16 at 21:30 Glucose (Glutose) 22.5 gm Q15M PRN PO DECREASED GLUCOSE; Start 12/12/16 at 21:30 Dextrose (D50w Syringe) 25 ml Q15M PRN IV DECREASED GLUCOSE; Start 12/12/16 at 21:30 Dextrose (D50w Syringe) 50 ml Q15M PRN IV DECREASED GLUCOSE; Start 12/12/16 at 21:30 Glucagon (Glucagen) 1 mg Q15M PRN IM DECREASED GLUCOSE; Start 12/12/16 at 21:30 Glucose (Glutose) 15 gm Q15M PRN BUCCAL DECREASED GLUCOSE; Start 12/12/16 at 21: 30 Rosuvastatin Calcium (Crestor) 30 mg QHS PO ; Start 12/13/16 at 21:00; Status UNV Miscellaneous Information (*Order Clarification Bulletin) ROSUVASTATIN 30MG: PLEASE HAVE FAM... Q8H XX Last administered on 12/13/16t 16:11; Admin Dose 1 EA ; Start 12/13/16 at 08:30 IVAN LOVE Dec 13, 2016 17:07
[2016-12-13] MEDS: RIVAROXABAN 15 MG TABLET PO SCH (17:43)
[2016-12-13] MEDS ORDERED: ROSUVASTATIN 10 MG TAB PO SCH (21:00)
[2016-12-14] VITALS (12 sets, daily range): BP systolic 116–153; BP diastolic 56–69; PULSE 60–70; RESP 16–18
[2016-12-14] MEDS: ALBUTEROL HFA 8 GM INHALER INH SCH ×6 (01:00→23:53)
[2016-12-14 06:55] LABS: ADD SCAN DIFF NO
[2016-12-14 07:06] LABS: BASOPHILS % 0.6 % (0.0-2.0); EOSINOPHILS # 0.3 10^3/ul (0.0-0.5); EOSINOPHILS % 4.3 % (0.0-7.0); HEMATOCRIT 36.1 % (37.0-47.0); HEMOGLOBIN 11.3 g/dl (12.0-16.0); LYMPHOCYTES # 1.7 10^3/ul (0.8-2.9); LYMPHOCYTES % 24.3 % (15.0-51.0); MEAN CORPUSCULAR HEMOGLOBIN 26.7 pg (29.0-33.0); MEAN CORPUSCULAR HGB CONC 31.3 g/dl (32.0-37.0); MEAN CORPUSCULAR VOLUME 85.1 fl (82.0-101.0); MONOCYTE # 0.7 10^3/ul (0.3-0.9); MONOCYTES % 9.1 % (0.0-11.0); NEUTROPHIL # 4.4 10^3/ul (1.6-7.5); NEUTROPHILS % 61.4 % (39.0-77.0); PLATELET COUNT 288 10^3/UL (140-415); RED BLOOD COUNT 4.24 10^6/ul (4.20-5.40); RED CELL DISTRIBUTION WIDTH 16.2 % (11.5-14.5); WHITE BLOOD COUNT 7.2 10^3/ul (4.8-10.8)
[2016-12-14 07:18] LABS: ALBUMIN 3.6 g/dl (3.3-4.9); POTASSIUM 3.1 mmol/L (3.5-5.1)
[2016-12-14 07:20] LABS: CREATININE 1.48 mg/dl (0.44-1.00)
[2016-12-14 07:21] LABS: ALBUMIN/GLOBULIN RATIO 1.38; BILIRUBIN,INDIRECT 0.2 mg/dl (0-1.1); BILIRUBIN,TOTAL 0.2 mg/dl (0.2-1.3); CALCIUM 9.3 mg/dl (8.4-10.2); TOTAL PROTEIN 6.2 g/dl (6.1-8.1)
--- NOTE | 2016-12-14 07:50 | PN ---
DATE: REFERRING PHYSICIAN: Dr. Valdez. Thank you for asking me to see the patient with you. HISTORY OF PRESENT ILLNESS: The patient is 76 years old with underlying TIA in which the patient wi ll continue on Xarelto for that with the possibility of underlying seizure activity. We will follow up the patient with electroencephalogram which is still pending and will continue the patient on Ke ppra 500 mg twice a day. The patient was admitted to telemetry for more evaluation and treatment. PAST MEDICAL HISTORY: As above including hypertension, dyslipidemia, mechanical valve followed by Laura Valdez, diabetes type 2, atrial fibrillation with pacemaker, coronary artery disease status p ost stent, asthma, chronic kidney disease. On exam today, the patient is alert, awake, following simple commands. Cranial nerves II: Pupils e qual both sides, reactive to light. Cranial nerves III, IV and : Extraocular muscles intact. Cr anial nerve V: Equal sensation to face. Cranial nerve VII: Symmetrical face. Cranial nerve VIII: Decreased hearing bilaterally. Cranial nerves IX and X: Elevates palate. Cranial nerve XI: Caroline vates shoulder 5/5. Cranial nerve XII: With straight tongue. Motor: Decreased right hand care aide, 4 +/5. Sensation decreased for glove and sock area for light touch and temperature. Coordination: Fi [id number]-yv-[id number] test intact. HEART: Regular rate and rhythm. LUNGS: Equal breath sounds. ABDOMEN: Soft, relaxed, nondistended. No tenderness. ASSESSMENT AND PLAN 1. The patient is a 76 year old with underlying transient ischemic attack. Will continue the patie nt on Xarelto which is a good medication for stroke prophylaxis. 2. History of possible underlying seizure activity. Continue the patient on Keppra 500 mg twice a day and follow up the patient with electroencephalogram. 3. History of atrial fibrillation and pacemaker. 4. History of coronary artery disease. 5. Underlying aphasia. Will follow up the patient with speech therapy for more evaluation and joel tment. 6. For stroke workup will follow up the patient with carotid Doppler and 2D echocardiogram. Again, thank you, Dr. Valdez, for asking me to see the patient with you. Dictated By: KAITLIN DANIEL/MENDEL Conf#: [id number] DID#: [id number] CC: ZHOU VALDEZ MD; KAITLIN JACK MD;*EndCC*
[2016-12-14] MEDS: AMIODARONE 200 MG TAB PO SCH (09:15)
[2016-12-14] MEDS: INSULIN ASPART [NOVOLOG] 3 ML PEN SC SCH ×4 (09:22→20:47)
--- NOTE | 2016-12-14 12:38 | PN ---
Date/Time of Note Date/Time of Note DATE: 12/14/16 TIME: 12:35 Assessment/Plan VTE Prophylaxis VTE Prophylaxis Intervention: other (on oral anticoagulation) Lines/Catheters IV Catheter Type (from Nrsg): Peripheral IV Urinary Cath still in place: No Assessment/Plan Assessment/Plan 1. CVA/TIA - w/u so far negative including CT Brain, Carotid Doppler. Tele normal - await EEG to rule out seizure activity --> cont Keppra - await TTE - cont ASA, statin, xarelto, amiodarone - Cards on board, consider switching to other NOAC - [facility] consult placed 2. 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, nl mental status, nl speech, nl strength Results Result Diagram: 12/14/16 0611 12/14/16 0611 Results 24 hrs Laboratory Tests Test 12/13/16 16:49 12/13/16 21:10 12/14/16 01:35 12/14/16 06:11 Bedside Glucose 216 234 H 157 Alanine Aminotransferase (ALT/SGPT) 33 Albumin 3.6 Albumin/Globulin Ratio 1.38 Alkaline Phosphatase 66 Anion Gap 15 Aspartate Amino Transf (AST/SGOT) 26 Basophils # 0.0 Basophils % 0.6 Blood Urea Nitrogen 26 H Calcium Level 9.3 Carbon Dioxide Level 27 Chloride Level 101 Creatinine 1.48 H Direct Bilirubin 0.00 Eosinophils # 0.3 Eosinophils % 4.3 Globulin 2.60 Glucose Level 179 Hematocrit 36.1 L Hemoglobin 11.3 L Indirect Bilirubin 0.2 Lymphocytes # 1.7 Lymphocytes % 24.3 Mean Corpuscular Hemoglobin 26.7 L Mean Corpuscular Hemoglobin Concent 31.3 L Mean Corpuscular Volume 85.1 Mean Platelet Volume 10.0 Monocytes # 0.7 Monocytes % 9.1 Neutrophils # 4.4 Neutrophils % 61.4 Nucleated Red Blood Cells # 0.0 Nucleated Red Blood Cells % 0.0 Platelet Count 288 Potassium Level 3.1 L Red Blood Count 4.24 Red Cell Distribution Width 16.2 H Sodium Level 140 Total Bilirubin 0.2 Total Protein 6.2 White Blood Count 7.2 # Test 12/14/16 08:25 Bedside Glucose 186 Medications Medications Current Medications Ondansetron HCl (Zofran Inj) 4 mg Q6H PRN IV NAUSEA AND/OR VOMITING; Start 12/12 at 21:00 Acetaminophen (Tylenol Tab) 650 mg Q6H PRN PO PAIN LEVEL 1-3 OR FEVER; Start at 21:00 Albuterol (Ventolin Hfa) 2 puff Q4 INH Last administered on 12/14/16 09:14; Admin Dose 2 PUFF; Start 12/12/16 at 21:00 Amiodarone HCl (Cordarone) 200 mg DAILY PO Last administered on 12/14/16 09:15 ; Admin Dose 200 MG; Start 12/13/16 at 09:00 Miscellaneous Information 1 ea NOTE XX ; Start 12/12/16 at 21:30 Glucose (Glutose) 15 gm Q15M PRN PO DECREASED GLUCOSE; Start 12/12/16 at 21:30 Glucose (Glutose) 22.5 gm Q15M PRN PO DECREASED GLUCOSE; Start 12/12/16 at 21:30 Dextrose (D50w Syringe) 25 ml Q15M PRN IV DECREASED GLUCOSE; Start 12/12/16 at 21:30 Dextrose (D50w Syringe) 50 ml Q15M PRN IV DECREASED GLUCOSE; Start 12/12/16 at 21:30 Glucagon (Glucagen) 1 mg Q15M PRN IM DECREASED GLUCOSE; Start 12/12/16 at 21:30 Glucose (Glutose) 15 gm Q15M PRN BUCCAL DECREASED GLUCOSE; Start 12/12/16 at 21: 30 Rosuvastatin Calcium (Crestor) 30 mg QHS PO ; Start 12/13/16 at 21:00; Status UNV Miscellaneous Information (*Order Clarification Bulletin) ROSUVASTATIN 30MG: PLEASE HAVE FAM... Q8H XX Last administered on 12/13/16t 16:11; Admin Dose 1 EA ; Start 12/13/16 at 08:30 KATRIN BURTON MD Dec 14, 2016 12:38
--- NOTE | 2016-12-14 14:10 | CONS ---
Date/Time of Note Date/Time of Note DATE: 12/14/16 TIME: 14:08 Assessment/Plan Assessment/Plan Additional Assessment/Plan # Acute neuro changes- possible CVA however work up is negative. If final diagnosis is acute CVA would consider Eliquis # PAF # HTN # HL # CAD >> review echo >> await EEG >> await further neuro work up >> pt should be taking Xarelto at dinner time however she has been taking at bedtime. >> consider change to Eliquis if final diagnosis most consistent with CVA - however work up so far negative. Consultation Date/Type/Reason Admit Date/Time Dec 12, 2016 at 20:32 Initial Consult Date 12/13/16 Type of Consultation: Cardiology 24 HR Interval Summary Free Text/Dictation No new syx. Decreased syx Exam/Review of Systems Vital Signs Vitals Vital Signs Date Time Temp Pulse Resp B/P Pulse Ox O2 Delivery O2 Flow Rate FiO2 12/14/16 12:07 62 12/14/16 11:21 97.9 18 153/65 96 12/13/16 00:00 Room Air Intake and Output 12/13/16 12/13/16 12/14/16 15:00 23:00 07:00 Intake Total 950 ml 800 ml Balance 950 ml 800 ml Exam Constitutional: alert, oriented, well developed Psych: no complaints Eyes: nl conjunctiva ENMT: nl external ears & nose Neck: supple Respiratory: clear to auscultation, normal air movement Cardiovascular: regular rate and rhythm, No S3, No edema, No irregular rhythm Gastrointestinal: nl liver, spleen, other (obese), soft Extremities: normal pulses Neurological: MANAGER SERVICES II-XII intact, nl mental status Results Result Diagram: 12/14/16 0611 12/14/16 0611 Results 24 hrs Laboratory Tests Test 12/13/16 16:49 12/13/16 21:10 12/14/16 01:35 12/14/16 06:11 Bedside Glucose 216 234 H 157 Alanine Aminotransferase (ALT/SGPT) 33 Albumin 3.6 Albumin/Globulin Ratio 1.38 Alkaline Phosphatase 66 Anion Gap 15 Aspartate Amino Transf (AST/SGOT) 26 Basophils # 0.0 Basophils % 0.6 Blood Urea Nitrogen 26 H Calcium Level 9.3 Carbon Dioxide Level 27 Chloride Level 101 Creatinine 1.48 H Direct Bilirubin 0.00 Eosinophils # 0.3 Eosinophils % 4.3 Globulin 2.60 Glucose Level 179 Hematocrit 36.1 L Hemoglobin 11.3 L Indirect Bilirubin 0.2 Lymphocytes # 1.7 Lymphocytes % 24.3 Mean Corpuscular Hemoglobin 26.7 L Mean Corpuscular Hemoglobin Concent 31.3 L Mean Corpuscular Volume 85.1 Mean Platelet Volume 10.0 Monocytes # 0.7 Monocytes % 9.1 Neutrophils # 4.4 Neutrophils % 61.4 Nucleated Red Blood Cells # 0.0 Nucleated Red Blood Cells % 0.0 Platelet Count 288 Potassium Level 3.1 L Red Blood Count 4.24 Red Cell Distribution Width 16.2 H Sodium Level 140 Total Bilirubin 0.2 Total Protein 6.2 White Blood Count 7.2 # Test 12/14/16 08:25 12/14/16 12:51 Bedside Glucose 186 177 Medications Medications Current Medications Ondansetron HCl (Zofran Inj) 4 mg Q6H PRN IV NAUSEA AND/OR VOMITING; Start 12/12 at 21:00 Acetaminophen (Tylenol Tab) 650 mg Q6H PRN PO PAIN LEVEL 1-3 OR FEVER; Start at 21:00 Albuterol (Ventolin Hfa) 2 puff Q4 INH Last administered on 12/14/16 13:19; Admin Dose 2 PUFF; Start 12/12/16 at 21:00 Amiodarone HCl (Cordarone) 200 mg DAILY PO Last administered on 12/14/16 09:15 ; Admin Dose 200 MG; Start 12/13/16 at 09:00 Miscellaneous Information 1 ea NOTE XX ; Start 12/12/16 at 21:30 Glucose (Glutose) 15 gm Q15M PRN PO DECREASED GLUCOSE; Start 12/12/16 at 21:30 Glucose (Glutose) 22.5 gm Q15M PRN PO DECREASED GLUCOSE; Start 12/12/16 at 21:30 Dextrose (D50w Syringe) 25 ml Q15M PRN IV DECREASED GLUCOSE; Start 12/12/16 at 21:30 Dextrose (D50w Syringe) 50 ml Q15M PRN IV DECREASED GLUCOSE; Start 12/12/16 at 21:30 Glucagon (Glucagen) 1 mg Q15M PRN IM DECREASED GLUCOSE; Start 12/12/16 at 21:30 Glucose (Glutose) 15 gm Q15M PRN BUCCAL DECREASED GLUCOSE; Start 12/12/16 at 21: 30 Atorvastatin Calcium (Lipitor) 80 mg HS PO ; Start 12/14/16 at 21:00 GABRIELLE DAVID MD Dec 14, 2016 14:10
--- NOTE | 2016-12-14 14:55 | RADRPT ---
Echocardiogram Report Patient Name: NEYMAR AYALA Gender: Female Date: 1940 Study Date: 13-Dec-2016 Photographer Motion Picture: Yusuf Koehler JENNIFER Location: 506 Ref. Physician: ZHOU VALDEZ Quality: Good Procedures: Transthoracic echocardiogram with complete 2D, M-Mode, and doppler examination. Indications: Cerebrovascular Accident. 2D/M Mode Doppler Measurement Value Normal Ranges Measurement Value Normal Ranges LVIDd 2D 3.2 3.5 - 5.6 cm BRIGIDA Vmax 2.5 cm2 LVIDs 2D 1.5 2.1 - 4.1 cm BRIGIDA VTI 2.7 cm2 FS 2D 53.5 % AV Mean Edwin 1.2 m/sec LVPWd 2D 1.1 0.6 - 1.1 cm AV Mean PG 7.0 mmHg IVSd 2D 1.1 0.6 - 1.1 cm AV Peak Edwin 1.8 m/sec IVS/LVPW 2D 1.0 AV Peak PG 13.0 mmHg AoR Diam 2D 3.1 2.0 - 3.7 cm AV VTI 37.2 cm LA/Ao 2D 1 0 - 1 LVOT Mean Edwin 1.1 m/sec EDV 2D 31.6 cm3 LVOT Mean PG 5.0 mmHg ESV 2D 3.2 cm3 LVOT Peak Edwin 1.5 m/sec LA Dimen 2D 3.8 2.3 - 4.0 cm LVOT Peak PG 9.0 mmHg LVOT Diam 2.0 cm LVOT VTI 31.4 cm LVOT Area 3.1 cm2 MV PHT 83.0 msec MV Peak Edwin 2.3 m/sec MV Peak PG 22.0 mmHg MV Mean Edwin 1.4 m/sec MV Mean PG 9.0 mmHg MV Decel [place] 8 MV PHT Peak Edwin 2.3 m/sec MV PHT 83.0 msec MV VTI 71.9 cm MVA PHT 2.7 cm2 MVA VTI 1.4 cm TR Peak Edwin 3.4 m/sec TR Peak PG 47.0 mmHg RVSP 50.0 mmHg Findings Left Ventricle: Normal left ventricular systolic function. Normal left ventricular cavity size. Mild concentric left ventricular hypertrophy. Paradoxical septal motion consistent with RV pacemaker. Ejection fraction is visually estimated at 60 %. Tissue Doppler/Mitral Doppler indices are indeterminate in this study due to the presence of severe mitral anular calcification. Right Ventricle: Normal right ventricular size. Normal right ventricular systolic function. Pacemaker right heart. Left Atrium: There is severe enlargement of left atrium. LA Dimension6.80 cm. Right Atrium: The right atrium is normal in size. Mitral Valve: Mild mitral leaflet calcification. Severe mitral annular calcification. Mild to moderate mitral valve regurgitation. Moderate mitral stenosis. Mitral valve Max Velocity 2.28 m/sec. MaxPG 22.00 mmHg. MeanPG 9.00 mmHg. Mitral Valve Area by Continuity1.37 cm2. Aortic Valve: No significant aortic stenosis or insufficiency. Aortic cusps appear mildly calcified. Tricuspid Valve: Normal appearance of the tricuspid valve. Estimated peak PA systolic pressure 50 mmHg. There is mild tricuspid regurgitation. Pulmonic Valve: Normal pulmonic valve appearance. Pericardium: Normal pericardium with no significant pericardial effusion. Aorta: Normal aortic root. IVC: Normal size and normal respiratory collapse consistent with normal right atrial pressure. Conclusions 1.Normal left ventricular systolic function. Normal left ventricular cavity size. Mild concentric left ventricular hypertrophy. Paradoxical septal motion consistent with RV pacemaker. Ejection fraction is visually estimated at 60 %. Tissue Doppler/Mitral Doppler indices are indeterminate in this study due to the presence of severe mitral anular calcification. 2.Mild mitral leaflet calcification. Severe mitral annular calcification. Mild to moderate mitral valve regurgitation. Moderate mitral stenosis. Mitral valve Max Velocity 2.28 m/sec. MaxPG 22.00 mmHg. MeanPG 9.00 mmHg. Mitral Valve Area by Continuity1.37 cm2. 3.There is severe enlargement of left atrium. LA Dimension6.80 cm. 4.No significant aortic stenosis or insufficiency. Aortic cusps appear mildly calcified. 5.Normal appearance of the tricuspid valve. Estimated peak PA systolic pressure 50 mmHg. There is mild tricuspid regurgitation. Electronically Signed By: Gonzales Duncan 14-Dec-2016 14:53:48 -0800 Patient Name: NEYMAR AYALA Study Date: 13-Dec-2016 [id number]
[2016-12-14] MEDS: RIVAROXABAN 15 MG TABLET PO SCH (17:53)
[2016-12-14] MEDS: ATORVASTATIN 80 MG TAB PO SCH (20:44)
[2016-12-15] VITALS (11 sets, daily range): BP systolic 118–164; BP diastolic 57–80; PULSE 60–76; RESP 16–18
[2016-12-15] MEDS: ALBUTEROL HFA 8 GM INHALER INH SCH ×6 (01:00→20:24)
--- NOTE | 2016-12-15 04:18 | SP ---
DATE OF PROCEDURE: REFERRING PHYSICIAN: Dr. Gil Thank you for asking me to see the patient with you. HISTORY OF PRESENT ILLNESS: The patient is a 76-year-old with a TIA for which the patient is on Xar elto, history of seizure in the past for which the patient is on Keppra 500 twice a day. The patien t had electroencephalogram. PAST MEDICAL HISTORY: Which includes hypertension, dyslipidemia, mechanical valve disease, diabetes type 2, atrial fibrillation, pacemaker, coronary artery disease, post stent, asthma, chronic kidney disease. PHYSICAL EXAMINATION: GENERAL: On exam today, the patient is alert, awake, oriented for time, place, and person. Normal speech and normal language. CRANIAL NERVES: Cranial nerve II: Pupils equal on both sides, reactive to light. Cranial nerves I II, IV, and : Extraocular muscles intact. Cranial nerve V: Equal sensation to face. Cranial ne rve VII: Symmetrical face. Cranial nerve VIII: Equal hearing bilaterally. Cranial nerves IX, X: Elevates palate. Cranial nerve XI: Elevates shoulder 5/5. Cranial nerve XII: With straight tong ue. MOTOR: Decreased right hand model and pattern supervisor, 4+/5. Sensation decreased for glove and sock area for light touc h and temperature. COORDINATION: [id number] test intact. HEART: Regular rate and rhythm. LUNGS: Equal breath sounds. ABDOMEN: Soft, relaxed, nondistended. No tenderness. ASSESSMENT AND PLAN: 1. The patient is a 76-year-old with a past medical history of atrial fibrillation and coronary art jennyfer disease for which the patient is on Xarelto which is good for stroke prophylaxis with the possib ility of new-onset of transient ischemic attack. We will keep the patient on Xarelto for now, and marcelina moreland counseled the patient about the side effects of the medication. 2. History of seizure disorder. Keep the patient on Keppra 500 mg twice a day. EEG done today [facility] showed generalized slowing. No seizure activity is recorded. 3. History of atrial fibrillation and pacemaker for which the patient is on Xarelto. 4. History of coronary artery disease. 5. History of aphasia. We will follow up the patient with speech therapy for more evaluation and t reatment. 6. We will follow up the patient with gait evaluation and fall precaution for now. Again, thank you, Dr. Gil, for asking me to see the patient with you. Dictated By: KAITLIN DANIEL/MENDEL Conf#: [id number] DID#: [id number]
[2016-12-15] MEDS: AMIODARONE 200 MG TAB PO SCH (08:27)
[2016-12-15] MEDS: INSULIN ASPART [NOVOLOG] 3 ML PEN SC SCH ×4 (08:30→20:23)
--- NOTE | 2016-12-15 11:18 | PN ---
Date/Time of Note Date/Time of Note DATE: 12/15/16 TIME: 11:16 Assessment/Plan VTE Prophylaxis VTE Prophylaxis Intervention: other (on xarelto) Lines/Catheters IV Catheter Type (from Nrsg): Saline Lock Urinary Cath still in place: No Assessment/Plan Assessment/Plan 1. CVA/TIA - w/u negative including CT Brain, Carotid Doppler, EEG. ECHO with normal EF and moderate MR. Tele normal - cont Keppra per Neuro - cont ASA, statin, xarelto, amiodarone --> do not believe that this is TIA due to Xarelto failure. Patient was taking medication at bedtime instead of at dinner - await PT and [facility] evaluation 2. Afib - cont amio, xarelto Subjective 24 Hr Interval Summary Free Text/Dictation able to ambulate with assistance, but feels shaky at times. Constitutional: improved, no complaints Cardiovascular: no complaints Gastrointestinal: no complaints Neurologic: no complaints Exam/Review of Systems Vital Signs Vitals Vital Signs Date Time Temp Pulse Resp B/P Pulse Ox O2 Delivery O2 Flow Rate FiO2 12/15/16 08:09 60 12/15/16 07:27 98.3 18 118/57 94 12/13/16 00:00 Room Air Intake and Output 12/14/16 12/14/16 12/15/16 15:00 23:00 07:00 Intake Total 850 ml 200 ml Balance 850 ml 200 ml Exam Constitutional: alert, oriented, well developed Respiratory: clear to auscultation, normal air movement Cardiovascular: nl pulses, regular rate and rhythm Gastrointestinal: nl liver, spleen, non-tender, soft Neurological: FOUNDRY ENGINEER II-XII intact, nl mental status, nl speech, nl strength Results Result Diagram: 12/14/16 0611 12/14/16 0611 Results 24 hrs Laboratory Tests Test 12/14/16 12:51 12/14/16 17:09 12/14/16 20:47 12/15/16 08:09 Bedside Glucose 177 275 H 149 203 Medications Medications Current Medications Ondansetron HCl (Zofran Inj) 4 mg Q6H PRN IV NAUSEA AND/OR VOMITING; Start 12/12 at 21:00 Acetaminophen (Tylenol Tab) 650 mg Q6H PRN PO PAIN LEVEL 1-3 OR FEVER; Start at 21:00 Albuterol (Ventolin Hfa) 2 puff Q4 INH Last administered on 12/15/16 08:27; Admin Dose 2 PUFF; Start 12/12/16 at 21:00 Amiodarone HCl (Cordarone) 200 mg DAILY PO Last administered on 12/15/16 08:27 ; Admin Dose 200 MG; Start 12/13/16 at 09:00 Miscellaneous Information 1 ea NOTE XX ; Start 12/12/16 at 21:30 Glucose (Glutose) 15 gm Q15M PRN PO DECREASED GLUCOSE; Start 12/12/16 at 21:30 Glucose (Glutose) 22.5 gm Q15M PRN PO DECREASED GLUCOSE; Start 12/12/16 at 21:30 Dextrose (D50w Syringe) 25 ml Q15M PRN IV DECREASED GLUCOSE; Start 12/12/16 at 21:30 Dextrose (D50w Syringe) 50 ml Q15M PRN IV DECREASED GLUCOSE; Start 12/12/16 at 21:30 Glucagon (Glucagen) 1 mg Q15M PRN IM DECREASED GLUCOSE; Start 12/12/16 at 21:30 Glucose (Glutose) 15 gm Q15M PRN BUCCAL DECREASED GLUCOSE; Start 12/12/16 at 21: 30 Atorvastatin Calcium (Lipitor) 80 mg HS PO Last administered on 12/14/16 20:44 ; Admin Dose 80 MG; Start 12/14/16 at 21:00 KATRIN BURTON MD Dec 15, 2016 11:18
[2016-12-15] MEDS ORDERED: LEVETIRACETAM 500 MG TAB PO SCH (11:30)
--- NOTE | 2016-12-15 12:11 | CONS ---
Date/Time of Note Date/Time of Note DATE: 12/15/16 TIME: 12:03 Assessment/Plan Assessment/Plan Additional Assessment/Plan # Probable CVA given residual changes (worsened handwriting) however work up is negative. # PAF- given mitral stenosis she should ideally be on coumadin for AC. This is discussed with the pt. # Mitral stenosis- mild/moderate # HTN # HL # CAD >> Given finding of MS will recommend Coumadin >> Will start coumadin and transition off Xarelto >> Continue on cardiac meds >> left message with primary team Consultation Date/Type/Reason Admit Date/Time Dec 12, 2016 at 20:32 Initial Consult Date 12/13/16 Type of Consultation: Cardiology 24 HR Interval Summary Free Text/Dictation Pt feels well without any issues. She still has some residual decrease in her writing ability. Constitutional: improved Exam/Review of Systems Vital Signs Vitals Vital Signs Date Time Temp Pulse Resp B/P Pulse Ox O2 Delivery O2 Flow Rate FiO2 12/15/16 11:39 98.1 65 18 119/63 96 12/13/16 00:00 Room Air Intake and Output 12/14/16 12/14/16 12/15/16 15:00 23:00 07:00 Intake Total 850 ml 200 ml Balance 850 ml 200 ml Exam Constitutional: alert, oriented, well developed Psych: nl mood/affect, no complaints Head: normocephalic Eyes: nl conjunctiva ENMT: nl external ears & nose Respiratory: clear to auscultation Cardiovascular: regular rate and rhythm Gastrointestinal: nl liver, spleen, soft Musculoskeletal: nl extremities to inspection Neurological: DELI CUTTER SLICER II-XII intact Results Result Diagram: 12/14/16 0611 12/14/16 0611 Results 24 hrs Laboratory Tests Test 12/14/16 12:51 12/14/16 17:09 12/14/16 20:47 12/15/16 08:09 Bedside Glucose 177 275 H 149 203 Medications Medications Current Medications Ondansetron HCl (Zofran Inj) 4 mg Q6H PRN IV NAUSEA AND/OR VOMITING; Start 12/12 at 21:00 Acetaminophen (Tylenol Tab) 650 mg Q6H PRN PO PAIN LEVEL 1-3 OR FEVER; Start at 21:00 Albuterol (Ventolin Hfa) 2 puff Q4 INH Last administered on 12/15/16 08:27; Admin Dose 2 PUFF; Start 12/12/16 at 21:00 Amiodarone HCl (Cordarone) 200 mg DAILY PO Last administered on 12/15/16 08:27 ; Admin Dose 200 MG; Start 12/13/16 at 09:00 Miscellaneous Information 1 ea NOTE XX ; Start 12/12/16 at 21:30 Glucose (Glutose) 15 gm Q15M PRN PO DECREASED GLUCOSE; Start 12/12/16 at 21:30 Glucose (Glutose) 22.5 gm Q15M PRN PO DECREASED GLUCOSE; Start 12/12/16 at 21:30 Dextrose (D50w Syringe) 25 ml Q15M PRN IV DECREASED GLUCOSE; Start 12/12/16 at 21:30 Dextrose (D50w Syringe) 50 ml Q15M PRN IV DECREASED GLUCOSE; Start 12/12/16 at 21:30 Glucagon (Glucagen) 1 mg Q15M PRN IM DECREASED GLUCOSE; Start 12/12/16 at 21:30 Glucose (Glutose) 15 gm Q15M PRN BUCCAL DECREASED GLUCOSE; Start 12/12/16 at 21: 30 Atorvastatin Calcium (Lipitor) 80 mg HS PO Last administered on 12/14/16 20:44 ; Admin Dose 80 MG; Start 12/14/16 at 21:00 Levetiracetam (Keppra) 500 mg BID PO ; Start 12/15/16 at 11:30 GABRIELLE DAVID MD Dec 15, 2016 12:11
[2016-12-15] MEDS: ENOXAPARIN 80 MG/0.8 ML SYG SC SCH (14:52)
[2016-12-15] MEDS ORDERED: WARFARIN 2 MG TAB PO ONE (17:00)
[2016-12-15] MEDS ORDERED: WARFARIN 5 MG TAB GTB SCH (17:00)
[2016-12-15] MEDS: ATORVASTATIN 80 MG TAB PO SCH (20:22)
--- NOTE | 2016-12-15 23:12 | CONS ---
DATE OF ADMISSION: 12/12/2016 DATE OF CONSULTATION: REFERRING PHYSICIAN: Nasir Valdez MD Thank you for asking me to see the patient with you. HISTORY OF PRESENT ILLNESS: The patient is a 76-year-old lady with a past medical history of: 1. Atrial fibrillation, the patient with anticoagulation in the form of Xarelto for stroke prophyla xis in which the patient has new symptoms of transient ischemic attack versus stroke in which I came see the patient about the benefit of Xarelto as well as all of the side effect about the medication in which she agreed to continue on it, which we also discussed with Dr. Valdez. 2. Seizure disorder. Give the patient Keppra 500 mg. Electroencephalogram was done. It does not show seizure activity. However, it shows generalized slowing, which would be consistent with underl nilesh ____ disorder in which we will follow up the patient in outpatient clinic. 3. History of atrial fibrillation with the patient on Xarelto for treatment for that. 4. History of coronary artery disease. Keep the patient with anticoagulation and ____ about the he art disease which could be a precipitating factor for strokes. 5. History of dyslipidemia. We will follow up the patient with lipid panel, maximize her status. 6. History of diabetes. We counseled the patient about the importance of taking her medication. F ollow up with hemoglobin A1c as well as testing blood sugar. 7. We will keep the patient under fall precautions as well as aspiration precaution. Please add the physical exam from [id number] ____ in which the physical exam did not change. Again, thank you for asking me to see the patient with you. Dictated By: KAITLIN JACK MD NA/NTS Conf#: [id number] DID#: [id number] CC: NASIR VALDEZ MD;*EndCC*
[2016-12-16] VITALS (11 sets, daily range): BP systolic 119–153; BP diastolic 58–71; PULSE 59–74; RESP 18–22
[2016-12-16] MEDS: ALBUTEROL HFA 8 GM INHALER INH SCH ×6 (01:29→20:38)
--- NOTE | 2016-12-16 07:02 | SP ---
DATE OF PROCEDURE: NAME OF PROCEDURE: Electroencephalogram. REFERRING PHYSICIAN: Dr. Gil. Thank you for asking me to see the patient with you. HISTORY OF PRESENT ILLNESS: The patient is 76 years old with a new onset of right-sided numbness, p ossibility of underlying seizure. TECHNIQUE: EEG done using 10-20 International electrode system with photic stimulation. FINDINGS: Bilateral occipital hemisphere view shows theta waves 6 to 7 Hz low amplitude, asymmetric bilateral. Photic stimulation done did not elicit a drive. No epileptiform discharge or seizure a ctivity is recorded. IMPRESSION: This is a normal electroencephalogram, showed generalized slowing consistent with a his tory of underlying encephalopathy. No epileptiform discharge or seizure activity is recorded. Foll owup EEG may be needed if clinically indicated. Again, thank you for asking me to see the patient with you. Dictated By: KAITLIN DANIEL/MENDEL Conf#: [id number] DID#: [id number]
[2016-12-16 07:47] LABS: INR 1.13; PROTIME 14.5 Sec (12.2-14.2); PT RATIO 1.1
[2016-12-16] MEDS: AMIODARONE 200 MG TAB PO SCH (08:45)
[2016-12-16] MEDS: ENOXAPARIN 80 MG/0.8 ML SYG SC SCH (08:47)
[2016-12-16] MEDS: INSULIN ASPART [NOVOLOG] 3 ML PEN SC SCH ×4 (08:48→20:32)
--- NOTE | 2016-12-16 09:17 | PN ---
Date/Time of Note Date/Time of Note DATE: 12/16/16 TIME: 09:11 Assessment/Plan VTE Prophylaxis VTE Prophylaxis Intervention: other Lines/Catheters IV [facility] Saline Lock Urinary Cath still in place: No Assessment/Plan Chief Complaint/Hosp Course 1. Suspect she has had a CVA. Rule out seizure activity, EEG is normal. Her CAT scan is unremarkable. Cannot do a MRI because of pacemaker. Echocardiogram shows severe mitral annular calcification with mitral regurg and moderate mitral stenosis, carotid duplex scan does not show any hemodynamically significant stenosis . Because of the mitral valvular disease cardiology has recommended that the patient be on warfarin instead of Xarelto. She is now on Coumadin and Lovenox and off Xarelto. 2. Controlled atrial fibrillation with pacemaker 3. Anticoagulated on Lovenox bridging and warfarin being loaded 4. Type 2 diabetes mellitus 5. Hypertension 6. Coronary artery disease status post stent placement 7. Asthma 8. Chronic kidney disease. Problems: Subjective 24 Hr Interval Summary Free Text/Dictation She is awake and alert today. She seems more lucid. She seems to have less trouble finding words. The twitching in her face is much less. Constitutional: improved, no complaints Gastrointestinal: no complaints Genitourinary: no complaints Musculoskeletal: no complaints Neurologic: other Exam/Review of Systems Vital Signs Vitals Vital Signs Date Time Temp Pulse Resp B/P Pulse Ox O2 Delivery O2 Flow Rate FiO2 12/16/16 08:30 71 12/16/16 07:14 98.2 18 128/60 98 12/13/16 00:00 Room Air Intake and Output 12/15/16 12/15/16 12/16/16 15:00 23:00 07:00 Intake Total 950 ml 120 ml Balance 950 ml 120 ml Exam Constitutional: alert, oriented, well developed Head: normocephalic Respiratory: clear to auscultation, normal air movement Cardiovascular: regular rate and rhythm Gastrointestinal: soft Musculoskeletal: nl extremities to inspection Results Result Diagram: 12/14/16 0611 12/14/16 0611 Results 24 hrs Laboratory Tests Test 12/15/16 12:03 12/15/16 17:30 12/15/16 20:20 12/16/16 01:30 Bedside Glucose 266 H 177 229 H 173 Test 12/16/16 06:20 12/16/16 08:12 INR International Normalized Ratio 1.13 Prothrombin Time 14.5 H Prothrombin Time Ratio 1.1 Bedside Glucose 220 Medications Medications Current Medications Ondansetron HCl (Zofran Inj) 4 mg Q6H PRN IV NAUSEA AND/OR VOMITING; Start 12/12 at 21:00 Acetaminophen (Tylenol Tab) 650 mg Q6H PRN PO PAIN LEVEL 1-3 OR FEVER; Start at 21:00 Albuterol (Ventolin Hfa) 2 puff Q4 INH Last administered on 12/16/16 08:44; Admin Dose 2 PUFF; Start 12/12/16 at 21:00 Amiodarone HCl (Cordarone) 200 mg DAILY PO Last administered on 12/16/16 08:45 ; Admin Dose 200 MG; Start 12/13/16 at 09:00 Miscellaneous Information 1 ea NOTE XX ; Start 12/12/16 at 21:30 Glucose (Glutose) 15 gm Q15M PRN PO DECREASED GLUCOSE; Start 12/12/16 at 21:30 Glucose (Glutose) 22.5 gm Q15M PRN PO DECREASED GLUCOSE; Start 12/12/16 at 21:30 Dextrose (D50w Syringe) 25 ml Q15M PRN IV DECREASED GLUCOSE; Start 12/12/16 at 21:30 Dextrose (D50w Syringe) 50 ml Q15M PRN IV DECREASED GLUCOSE; Start 12/12/16 at 21:30 Glucagon (Glucagen) 1 mg Q15M PRN IM DECREASED GLUCOSE; Start 12/12/16 at 21:30 Glucose (Glutose) 15 gm Q15M PRN BUCCAL DECREASED GLUCOSE; Start 12/12/16 at 21: 30 Atorvastatin Calcium (Lipitor) 80 mg HS PO Last administered on 12/15/16 20:22 ; Admin Dose 80 MG; Start 12/14/16 at 21:00 Enoxaparin Sodium (Lovenox) 70 mg DAILY SC Last administered on 12/16/16 08:47 ; Admin Dose 70 MG; Start 12/15/16 at 13:39 Insulin Glargine (Lantus) 16 unit DAILY@20 SC ; Start 12/16/16 at 20:00 Warfarin Sodium (Coumadin) 5 mg DAILY@17 PO ; Start 12/16/16 at 17:00 ZHOU VALDEZ MD Dec 16, 2016 09:16
--- NOTE | 2016-12-16 13:01 | CONS ---
Date/Time of Note Date/Time of Note DATE: 12/16/16 TIME: 12:59 Assessment/Plan Assessment/Plan Chief Complaint/Hosp Course # Possible CVA- no acute abnl on head ct, carotid u/s negative. pt with paf and mitral valve disease. was on noac, now switched to coumadin # PAF- given mitral stenosis she should ideally be on coumadin for stroke prophy # Mitral stenosis- mild/moderate # HTN # HL # CAD >> Given finding of MS will anticoag for afib with coumadin with goal inr 2.0 to 3.0, given recent neuro changes will need briding with loveno >> cont on statin >> cont amio as per outpt mgmt Problems: Consultation Date/Type/Reason Admit Date/Time Dec 12, 2016 at 20:32 Initial Consult Date 12/13/16 Type of Consultation: Cardiology 24 HR Interval Summary Free Text/Dictation no acute events. pt denies cp/sob/palpitations. pt reports some residual expressive aphasia. Detailed Summary ENT: no complaints Respiratory: no complaints Cardiovascular: no complaints Gastrointestinal: no complaints Exam/Review of Systems Vital Signs Vitals Vital Signs Date Time Temp Pulse Resp B/P Pulse Ox O2 Delivery O2 Flow Rate FiO2 12/16/16 12:20 74 12/16/16 11:04 97.7 18 153/71 94 12/13/16 00:00 Room Air Intake and Output 12/15/16 12/15/16 12/16/16 15:00 23:00 07:00 Intake Total 950 ml 120 ml Balance 950 ml 120 ml Exam Constitutional: alert, oriented, well developed Psych: nl mood/affect, no complaints Head: normocephalic Eyes: nl conjunctiva ENMT: nl external ears & nose Respiratory: clear to auscultation Cardiovascular: regular rate and rhythm Gastrointestinal: nl liver, spleen, soft Musculoskeletal: nl extremities to inspection Neurological: RN PRODUCTION II-XII intact Results Result Diagram: 12/14/16 0611 12/14/16 0611 Results 24 hrs Laboratory Tests Test 12/15/16 17:30 12/15/16 20:20 12/16/16 01:30 12/16/16 06:20 Bedside Glucose 177 229 H 173 INR International Normalized Ratio 1.13 Prothrombin Time 14.5 H Prothrombin Time Ratio 1.1 Test 12/16/16 08:12 12/16/16 11:27 Bedside Glucose 220 317 H Medications Medications Current Medications Ondansetron HCl (Zofran Inj) 4 mg Q6H PRN IV NAUSEA AND/OR VOMITING; Start 12/12 at 21:00 Acetaminophen (Tylenol Tab) 650 mg Q6H PRN PO PAIN LEVEL 1-3 OR FEVER; Start at 21:00 Albuterol (Ventolin Hfa) 2 puff Q4 INH Last administered on 12/16/16 12:17; Admin Dose 2 PUFF; Start 12/12/16 at 21:00 Amiodarone HCl (Cordarone) 200 mg DAILY PO Last administered on 12/16/16 08:45 ; Admin Dose 200 MG; Start 12/13/16 at 09:00 Miscellaneous Information 1 ea NOTE XX ; Start 12/12/16 at 21:30 Glucose (Glutose) 15 gm Q15M PRN PO DECREASED GLUCOSE; Start 12/12/16 at 21:30 Glucose (Glutose) 22.5 gm Q15M PRN PO DECREASED GLUCOSE; Start 12/12/16 at 21:30 Dextrose (D50w Syringe) 25 ml Q15M PRN IV DECREASED GLUCOSE; Start 12/12/16 at 21:30 Dextrose (D50w Syringe) 50 ml Q15M PRN IV DECREASED GLUCOSE; Start 12/12/16 at 21:30 Glucagon (Glucagen) 1 mg Q15M PRN IM DECREASED GLUCOSE; Start 12/12/16 at 21:30 Glucose (Glutose) 15 gm Q15M PRN BUCCAL DECREASED GLUCOSE; Start 12/12/16 at 21: 30 Atorvastatin Calcium (Lipitor) 80 mg HS PO Last administered on 12/15/16 20:22 ; Admin Dose 80 MG; Start 12/14/16 at 21:00 Enoxaparin Sodium (Lovenox) 70 mg DAILY SC Last administered on 12/16/16 08:47 ; Admin Dose 70 MG; Start 12/15/16 at 13:39 Insulin Glargine (Lantus) 16 unit DAILY@20 SC ; Start 12/16/16 at 20:00 Warfarin Sodium (Coumadin) 5 mg DAILY@17 PO ; Start 12/16/16 at 17:00 Procedures Procedures carotid doppler images reviewed: no hd significant lesion tele reviewed:NSR with pace rhythm PAUL COWAN Dec 16, 2016 13:01
[2016-12-16] MEDS ORDERED: WARFARIN 5 MG TAB PO SCH (17:00)
--- NOTE | 2016-12-16 19:20 | PDOCDIS ---
Discharge Instructions CONDITION Patient Condition: Good HOME CARE INSTRUCTIONS: Diet Instructions: Reduced CalorieSpecial Diet: RENAL 1800 CALORIE DIET ACTIVITY: Activity Restrictions: Slowly Increase Activity Rest between Activity Avoid heavy lifting Weight Bearing Bathing Restrictions: Shower FOLLOW UP/APPOINTMENTS Appointments ZHOU Gabriel MD Dec 16, 2016 19:20
[2016-12-16] MEDS ORDERED: INSULIN GLARGINE [LANtus] 3 ML PEN SC SCH (20:00)
[2016-12-16] MEDS: ATORVASTATIN 80 MG TAB PO SCH (20:15)
--- NOTE | 2016-12-16 22:43 | PN ---
DATE: REFERRING PHYSICIAN: Dr. Valdez. HISTORY OF PRESENT ILLNESS: The patient is 76 years old, admitted to [facility] w ith the possibility of underlying TIA versus stroke in which the patient initially was on Xarelto, i n which the patient switched from Xarelto to Coumadin and keep her INR between 2 to 3 for stroke pro phylaxis. CURRENT MEDICATIONS: Include: 1. Insulin Lantus 16 units subcutaneous once a day. 2. Coumadin 5 mg once a day. 3. Lovenox 70 mg daily. 4. Lipitor 80 mg once a day. 5. Cordarone 200 mg once a day. 6. Zofran 4 mg every 6 hours as needed. 7. Tylenol as needed. 8. Albuterol inhaler. PHYSICAL EXAMINATION: GENERAL: Today, the patient is alert, awake, oriented for time, place, and person. Normal speech a nd normal language. CRANIAL NERVES: Cranial nerve II: Pupils equal on both sides, reactive to light. Cranial nerves I II, IV, and : Extraocular muscles intact. Cranial nerve V: Equal sensation to face. Cranial ne rve VII: Symmetrical face. Cranial nerve VIII: Decreased hearing bilaterally. Cranial nerves IX, X: Elevates palate. Cranial nerve XI: Elevates shoulder 5/5. Cranial nerve XII: Straight tongu e. MOTOR: Decreased right hand maintenance instructor, 4+/5. SENSATION: Decreased for glove and sock area for light touch and temperature. COORDINATION: Fbcdok-fu-gnub test intact. HEART: Regular rate and rhythm. LUNGS: Equal breath sounds. ABDOMEN: Soft, relaxed, nondistended. No tenderness. ASSESSMENT AND PLAN: 1. The patient is 76 years old with underlying stroke with mitral valve disease in which the patien t switched to warfarin instead of Xarelto and keep the INR between 2 to 3 as well as Lovenox until C oumadin will be in therapeutic range. 2. History of controlled atrial fibrillation, which the patient has the pacemaker. 3. Diabetes in which the patient is on sliding scale insulin and Lantus. 4. Hypertension. Keep the blood pressure at the level of 140/90 or less to avoid any extension of her stroke. 5. History of coronary artery disease. Follow up the patient with cardiology. The patient is stat us post stent in the past. 6. History of asthma in the past as well as chronic renal disease. Again, thank you, Dr. Valdez, for asking me to see the patient with you. Dictated By: KAITLIN DANIEL/NTS Conf#: [id number] DID#: [id number] CC: ZHOU VALDEZ MD;*EndCC*
== END 2016-12-16 21:05 | DRG 66 ==
LOC: E/R 17:48 → TEL 20:32
PROVIDERS: ADMIT Internal Medicine; ATTEND Internal Medicine
DX: I63.9 Cerebral infarction, unspecified (principal); E11.22 Type 2 diabetes mellitus with diabetic chronic kidney disease; I48.0 Paroxysmal atrial fibrillation; I48.2 Chronic atrial fibrillation; N18.3 Chronic kidney disease, stage 3 (moderate); R47.01 Aphasia; I12.9 Hypertensive chronic kidney disease with stage 1 through stage 4 chronic kidney disease, or unspecified chronic kidney disease; E78.5 Hyperlipidemia, unspecified; I25.10 Atherosclerotic heart disease of native coronary artery without angina pectoris; I05.0 Rheumatic mitral stenosis; D50.9 Iron deficiency anemia, unspecified; K21.9 Gastro-esophageal reflux disease without esophagitis; J45.909 Unspecified asthma, uncomplicated; G40.909 Epilepsy, unspecified, not intractable, without status epilepticus; Z79.01 Long term (current) use of anticoagulants; Z79.4 Long term (current) use of insulin; Z79.82 Long term (current) use of aspirin; Z79.02 Long term (current) use of antithrombotics/antiplatelets; Z95.0 Presence of cardiac pacemaker; Z90.11 Acquired absence of right breast and nipple; Z95.5 Presence of coronary angioplasty implant and graft; Z87.891 Personal history of nicotine dependence; Z85.3 Personal history of malignant neoplasm of breast; Z85.038 Personal history of other malignant neoplasm of large intestine
CPT/HCPCS: 36415; 70450; 71010; 80053; 82962; 83735; 83970; 84100; 84484; 85025; 85610; 85730; 92610; 93005; 93306; 93880; 95819; 96360; 97110; 97116; 97163; 97530; J1815; J7030

== ENCOUNTER 2016-12-16 18:16 | Inpatient (IN) | payer MEDICARE, BC ==
[~2016-12-16] VITALS: Ht 162.6 cm; Wt 87.7 kg
[~2016-12-16 18:16] MED LIST changes: -ALBU8.5H3 IH; -ASPI-650; -CLOB60CR2 TOP; -FERR28TA PO; +INSU100I12 SQ; -INSU100I14; -INSU100I15; +LANT3I SC; -MULT-115 PO; -PRED20TA PO; +RIVA15TA PO; -RIVA20TA PO; -VALS1TAB80 PO
[2016-12-16 22:08] VITALS: Ht 162.6 cm; Wt 87.7 kg
[2016-12-16] MEDS ORDERED: ACETAMINOPHEN 325 MG TAB PO PRN (22:11)
[2016-12-16] MEDS ORDERED: INSULIN GLARGINE [LANtus] 3 ML PEN SC SCH (22:11)
[2016-12-16] MEDS ORDERED: GLUCOSE GEL 15 GRAM TUBE BUCCAL PRN (22:11)
[2016-12-16] MEDS ORDERED: GLUCAGON 1 MG INJ IM PRN (22:11)
[2016-12-16] MEDS ORDERED: ALBUTEROL HFA 8 GM INHALER INH SCH (22:11)
[2016-12-16] MEDS ORDERED: DEXTROSE 50% 50 ML SYRINGE IV PRN ×2 (22:11)
[2016-12-16] MEDS ORDERED: WARFARIN 5 MG TAB PO SCH (22:11)
[2016-12-16] MEDS ORDERED: GLUCOSE GEL 15 GRAM TUBE PO PRN ×2 (22:11)
[2016-12-16 22:41] VITALS: BP 134/65; RESP 20
[2016-12-17 01:48] LABS: ADD UMIC YES; URINE BILIRUBIN (Dip) NEGATIVE (NEGATIVE); URINE BLOOD (Dip) TRACE (NEGATIVE); URINE COLOR LT. YELLOW (YELLOW); URINE GLUCOSE (Dip) NEGATIVE (NEGATIVE); URINE KETONES (Dip) NEGATIVE (NEGATIVE); URINE LEUKOCYTE ESTERASE (Dip) NEGATIVE (NEGATIVE); URINE NITRITE (Dip) NEGATIVE (NEGATIVE); URINE TOTAL PROTEIN (Dip) NEGATIVE (NEGATIVE); URINE UROBILINOGEN (Dip) 0.2 E.U./dL (0.1-1.0)
[2016-12-17 02:17] LABS: BACTERIA,URINE OCCASIONAL; SQUAMOUS EPITHELIAL CELL,UR MODERATE; URINE RBCS 0-2 /HPF (0)
[2016-12-17] MEDS ORDERED: ALBUTEROL HFA 8 GM INHALER INH PRN (07:30)
[2016-12-17] MEDS: INSULIN ASPART [NOVOLOG] 3 ML PEN SC SCH ×4 (08:03→20:39)
[2016-12-17] MEDS: AMIODARONE 200 MG TAB PO SCH (08:04)
[2016-12-17] MEDS: ENOXAPARIN 80 MG/0.8 ML SYG SC SCH (08:05)
[2016-12-17 08:24] VITALS: BP 126/61; RESP 18
[2016-12-17 12:22] LABS: ADD SCAN DIFF NO
[2016-12-17 12:28] LABS: BASOPHILS % 0.6 % (0.0-2.0); EOSINOPHILS # 0.3 10^3/ul (0.0-0.5); EOSINOPHILS % 4.3 % (0.0-7.0); HEMATOCRIT 36.5 % (37.0-47.0); HEMOGLOBIN 11.3 g/dl (12.0-16.0); LYMPHOCYTES # 1.5 10^3/ul (0.8-2.9); LYMPHOCYTES % 22.3 % (15.0-51.0); MEAN CORPUSCULAR HEMOGLOBIN 26.1 pg (29.0-33.0); MEAN CORPUSCULAR VOLUME 84.3 fl (82.0-101.0); MEAN PLATELET VOLUME 10.8 fl (7.4-10.4); MONOCYTE # 0.5 10^3/ul (0.3-0.9); MONOCYTES % 7.5 % (0.0-11.0); NEUTROPHIL # 4.3 10^3/ul (1.6-7.5); NEUTROPHILS % 65.1 % (39.0-77.0); PLATELET COUNT 272 10^3/UL (140-415); RED BLOOD COUNT 4.33 10^6/ul (4.20-5.40); RED CELL DISTRIBUTION WIDTH 15.8 % (11.5-14.5); WHITE BLOOD COUNT 6.5 10^3/ul (4.8-10.8)
[2016-12-17 12:39] LABS: ALBUMIN 3.8 g/dl (3.3-4.9); POTASSIUM 3.9 mmol/L (3.5-5.1)
[2016-12-17 12:40] LABS: INR 1.21; PROTIME 15.4 Sec (12.2-14.2); PT RATIO 1.2
[2016-12-17 12:42] LABS: ALBUMIN/GLOBULIN RATIO 1.46; BILIRUBIN,INDIRECT 0.2 mg/dl (0-1.1); BILIRUBIN,TOTAL 0.2 mg/dl (0.2-1.3); CALCIUM 9.3 mg/dl (8.4-10.2); CREATININE 1.26 mg/dl (0.44-1.00); TOTAL PROTEIN 6.4 g/dl (6.1-8.1)
--- NOTE | 2016-12-17 13:03 | CONS ---
DATE OF ADMISSION: 12/16/2016 DATE OF CONSULTATION: 12/17/2016 REHABILITATION IMPAIRMENT CATEGORY: Infarct/CVA. ACTIVE COMORBIDITIES: 1. Atrial fibrillation. 2. Hypertension. 3. Coronary artery disease. 4. Diabetes mellitus. 5. Gastroesophageal reflux disease. 6. Hyperlipidemia. 7. Chronic kidney disease. 8. Peripheral neuropathy. 9. Anemia 10. History of colon carcinoma and resection. 11. History of left lower lobe pneumonia. 12. History of pacemaker placement. 13. History of asthma. 14. Impairments in self-care, mobility, and communication. HISTORY OF PRESENT ILLNESS: The patient is a pleasant 76-year-old female with history of multiple medical comorbidities including chronic atrial fibrillation with pacemaker placement, who was admitted with facial twitching, word finding deficits, and some right-sided weakness. Head CT was negative for bleed, and an MRI was unable to be performed due to pacemaker. The patient was felt likely to have CVA. Patient with notable significant impairments in self-care, mobility, and communication as compared to baseline, and has been cleared to transfer to the rehabilitation unit for comprehensive interdisciplinary rehab care. FUNCTIONAL HISTORY: Prior to recent events, she was independent in self-care tasks and mobility. Currently, the patient requires moderate assist for self- care, minimal assist for mobility tasks. I have reviewed the preadmission screen and the patient's current functional status is consistent with the preadmission screen. SOCIAL HISTORY: The patient lives at home, and hopes to return there upon discharge. PAST MEDICAL HISTORY: 1. Hypertension. 2. Gastroesophageal reflux disease. 3. Anemia. 4. History of colon carcinoma with resection. 5. History of breast carcinoma with lumpectomy and radiation. 6. Peripheral neuropathy. 7. History of coronary artery disease. 8. History of cerebrovascular accident with good functional recovery. 9. Chronic atrial fibrillation with history of pacemaker. 10. History of chronic kidney disease. CURRENT MEDICATIONS: 1. Albuterol inhaler. 2. Cordarone 200 mg p.o. daily. 3. Lipitor 80 mg p.o. at bedtime. 4. Lovenox 70 mg subcutaneous daily. 5. Insulin sliding scale. 6. Lantus 16 units subcutaneous daily. 7. Coumadin dose adjusted. ALLERGIES: CODEINE. PHYSICAL EXAMINATION: VITAL SIGNS: The patient is currently afebrile with stable vital signs. HEENT: Extraocular motions intact. Oropharynx clear. NECK: Supple. LUNGS: Clear anteriorly. CARDIAC: S1, S2. ABDOMEN: Soft, nontender, positive bowel sounds. NEUROLOGIC: She is awake and alert and oriented to person and hospital. She will follow simple 1-step commands. She has some word finding deficits. She demonstrates antigravity strength in bilateral upper extremities and lower extremities.. She does have impaired dynamic balance. PLAN: The patient has been admitted for comprehensive interdisciplinary acute rehab and is anticipated to tolerate 3 hours of daily therapy in divided doses for at least 5/7 days a week. Treatment plan will include: 1. Physical therapy to focus on bed mobility, transfers, and household ambulation with the goal of having the patient reach standby assist level. 2. Occupational therapy to focus on hygiene, grooming, dressing, bathing, and toileting activities, with the goal of having the patient reach standby assist level. 3. Rehabilitation nursing for carryover of therapeutic interventions, the goal of continent of bowel and bladder, and the goal of pain adequately managed on oral medications. 4. Speech therapy to focus on full cognitive and communication assessment, with the goal of having the patient return to baseline. ESTIMATED LENGTH OF STAY: 10 days. DISPOSITION GOAL: Home. Rehabilitation Barrier: communication Intervention for barrier: Speech Therapy I acknowledge that I performed a full physical examination on this patient within 24 hours of admission to the rehabilitation unit, and believe the patient is a good candidate for comprehensive interdisciplinary rehab care, and is anticipated to make reasonable goals in a reasonable period of time as outlined above. Dictated By: SOPHIE YEAGER/MENDEL Conf#: [id number] DID#: [id number] MTDD
--- NOTE | 2016-12-17 13:46 | CONS ---
Date/Time of Note Date/Time of Note DATE: 12/17/16 TIME: 13:35 Assessment/Plan Assessment/Plan Chief Complaint/Hosp Course #1 cerebrovascular accident versus transient ischemic attack with altered mental status, altered speech pattern, facial twitching. All of these symptoms seem to have improved. She is overall doing much better. Her speech is more fluent and the facial twitching has decreased significantly. The patient is here for the comprehensive rehabilitation program. #2 history of atrial fibrillation on Coumadin and Lovenox now. We are attempting to get her INR in the therapeutic range. She is on Lovenox for bridging. She was previously on Xarelto. She was found to have moderate mitral stenosis and switched to Coumadin by the cooling system operator. #3 hypertension blood pressure is controlled #4 type 2 diabetes mellitus #5 cardiac pacemaker #6 coronary artery disease status post stent placement #7 anemia #8 history of breast cancer #9 history of colon cancer status post resection. Problems: Consultation Date/Type/Reason Admit Date/Time Dec 16, 2016 at 21:30 Initial Consult Date 24 HR Interval Summary Free Text/Dictation She is now on the acute rehabilitation unit in the hospital. She is sitting up talking to her . Her speech is much more fluent and she seems overall better. Constitutional: improved, no complaints Exam/Review of Systems Vital Signs Vitals Vital Signs Date Time Temp Pulse Resp B/P Pulse Ox O2 Delivery O2 Flow Rate FiO2 12/17/16 08:24 98.5 64 18 126/61 97 Exam Constitutional: alert, obese, oriented, well developed Psych: nl mood/affect, no complaints Respiratory: clear to auscultation, normal air movement Cardiovascular: nl pulses, regular rate and rhythm Gastrointestinal: soft Extremities: edema Results Result Diagram: 12/17/16 1159 12/17/16 1115 Results 24 hrs Laboratory Tests Test 12/16/16 23:30 12/17/16 07:28 12/17/16 11:15 12/17/16 11:55 Urine Bacteria OCCASIONAL Urine Bilirubin NEGATIVE Urine Clarity CLEAR Urine Color LT. YELLOW Urine Glucose NEGATIVE Urine Hemoglobin TRACE Urine Ketones NEGATIVE Urine Leukocyte Esterase NEGATIVE Urine Microscopic RBC 0-2 Urine Microscopic WBC 2-5 Urine Nitrite NEGATIVE Urine Specific [place] 1.020 Urine Squamous Epithelial Cells MODERATE Urine Total Protein NEGATIVE Urine Urobilinogen 0.2 E.U./dL Urine pH 5.5 Bedside Glucose 199 210 Alanine Aminotransferase (ALT/SGPT) 37 Albumin 3.8 Albumin/Globulin Ratio 1.46 Alkaline Phosphatase 76 Anion Gap 16 Aspartate Amino Transf (AST/SGOT) 28 Blood Urea Nitrogen 19 Calcium Level 9.3 Carbon Dioxide Level 28 Chloride Level 96 L Creatinine 1.26 H Direct Bilirubin 0.00 Globulin 2.60 Glucose Level 205 Indirect Bilirubin 0.2 Potassium Level 3.9 Sodium Level 136 Total Bilirubin 0.2 Total Protein 6.4 Test 12/17/16 11:59 Basophils # 0.0 Basophils % 0.6 Eosinophils # 0.3 Eosinophils % 4.3 Hematocrit 36.5 L Hemoglobin 11.3 L INR International Normalized Ratio 1.21 Lymphocytes # 1.5 Lymphocytes % 22.3 Mean Corpuscular Hemoglobin 26.1 L Mean Corpuscular Hemoglobin Concent 31.0 L Mean Corpuscular Volume 84.3 Mean Platelet Volume 10.8 H Monocytes # 0.5 Monocytes % 7.5 Neutrophils # 4.3 Neutrophils % 65.1 Nucleated Red Blood Cells # 0.0 Nucleated Red Blood Cells % 0.0 Platelet Count 272 Prothrombin Time 15.4 H Prothrombin Time Ratio 1.2 Red Blood Count 4.33 Red Cell Distribution Width 15.8 H White Blood Count 6.5 Medications Medications Current Medications Acetaminophen (Tylenol Tab) 650 mg Q6H PRN PO PAIN LEVEL 1-3 OR FEVER; Start at 22:11 Amiodarone HCl (Cordarone) 200 mg DAILY PO Last administered on 12/17/16t 08:04 ; Admin Dose 200 MG; Start 12/16/16 at 22:11 Glucose (Glutose) 15 gm Q15M PRN PO DECREASED GLUCOSE; Start 12/16/16 at 22:11 Glucose (Glutose) 22.5 gm Q15M PRN PO DECREASED GLUCOSE; Start 12/16/16 at 22:11 Dextrose (D50w Syringe) 25 ml Q15M PRN IV DECREASED GLUCOSE; Start 12/16/16 at 22:11 Dextrose (D50w Syringe) 50 ml Q15M PRN IV DECREASED GLUCOSE; Start 12/16/16 at 22:11 Glucagon (Glucagen) 1 mg Q15M PRN IM DECREASED GLUCOSE; Start 12/16/16 at 22:11 Glucose (Glutose) 15 gm Q15M PRN BUCCAL DECREASED GLUCOSE; Start 12/16/16 at 22: 11 Atorvastatin Calcium (Lipitor) 80 mg HS PO ; Start 12/16/16 at 22:11 Enoxaparin Sodium (Lovenox) 70 mg DAILY SC Last administered on 12/17/16t 08:05 ; Admin Dose 70 MG; Start 12/16/16 at 22:11 Insulin Glargine (Lantus) 16 unit DAILY@20 SC ; Start 12/16/16 at 22:11 Warfarin Sodium (Coumadin) 5 mg DAILY@17 PO ; Start 12/16/16 at 22:11 Miscellaneous Information (*Order Clarification Bulletin) MEDICATION REQUIRES CLARIFICATION:XARE... Q8H XX ; Start 12/16/16 at 22:30 ZHOU VALDEZ MD Dec 17, 2016 13:45
[2016-12-17] MEDS ORDERED: WARFARIN 7.5 MG TAB PO ONE (17:00)
[2016-12-17 19:46] VITALS: BP 134/62; RESP 20
[2016-12-17] MEDS: ATORVASTATIN 80 MG TAB PO SCH (20:25)
--- NOTE | 2016-12-18 06:36 | CONS ---
DATE OF ADMISSION: 12/16/2016 DATE OF CONSULTATION: REFERRING PHYSICIAN: Louise SUBJECTIVE: The patient is a 76-year-old lady admitted with 1. Cerebrovascular accident, TIA in which the patient already on anticoagulation in the form of Xar elto which we switched to Coumadin in which the patient has ambulation difficulty with balance issue s for which the patient was admitted to acute rehab for more evaluation and treatment. 2. History of atrial fibrillation for which the patient is on Coumadin and Lovenox. Keep the INR b etween 2 to 3 level. We will keep her on Lovenox until we get acceptable, reasonable dose of Coumad in for her as the patient has atrial fibrillation as well as moderate mitral valve stenosis. 3. History of hypertension. Keep the blood pressure at the level of 140/90 to avoid any extension of stroke. 4. History of diabetes. Keep the patient with sliding scale insulin and follow up the patient with hemoglobin A1c and fasting blood sugar. 5. History of colon cancer status post resection as well as breast carcinoma. The patient will start on acute rehab to evaluate her balance and gait for more evaluation and treat ment. OBJECTIVE: GENERAL: The patient is alert, awake, and oriented to time, place, and person. Normal speech and n ormal language. CRANIAL NERVE EXAMINATION: Cranial nerves II: Pupils equal on both sides, reactive to light. Cran ial nerves III, IV, and : Extraocular muscles intact. Cranial nerve VII: Equal sensation to fac e. Symmetrical face. Cranial nerve VIII: Equal hearing bilaterally. Cranial nerve IX, X, XI: El evates palate. Cranial nerve XII: Elevates shoulders. 5/5 gloves, straight tongue. Motor examina tion: Decreased right hand principal secretary, 4+/5 sensation and principal secretary for glove and sock area for light touch, t emperature, coordination. Zririv-va-cgho is intact. HEART: Regular rate and rhythm. LUNGS: Equal breath sounds. ABDOMEN: Soft, nondistended, no tenderness. ASSESSMENT AND PLAN: The patient is a 76-year-old with 1. Decreased mental status probably secondary to old stroke. Keep the patient on acute rehab in ich she will have physical therapy and occupational therapy. 2. History of atrial fibrillation. We will keep the patient on anticoagulation in the form of Coum patrick, keep INR between 2 to 3, and continue Lovenox from now until the Coumadin is being in therapeu tic level. 3. History of seizure disorder on which her electroencephalogram is stable, and we will continue th e patient on seizure precautions for now. Again, thank you for asking me to see the patient with you. Dictated By: KAITLIN DANIEL/MENDEL Conf#: [id number] DID#: [id number]
[2016-12-18 07:30] VITALS: BP 124/98; RESP 18
[2016-12-18] MEDS: INSULIN ASPART [NOVOLOG] 3 ML PEN SC SCH ×6 (08:04→21:00)
[2016-12-18] MEDS: ENOXAPARIN 80 MG/0.8 ML SYG SC SCH (08:05)
[2016-12-18] MEDS: AMIODARONE 200 MG TAB PO SCH (08:06)
[2016-12-18] MEDS: FUROSEMIDE 20 MG TAB PO SCH (08:06)
[2016-12-18 08:18] LABS: INR 1.57; PROTIME 18.9 Sec (12.2-14.2); PT RATIO 1.5
--- NOTE | 2016-12-18 08:26 | CONS ---
Date/Time of Note Date/Time of Note DATE: 12/18/16 TIME: 08:22 Assessment/Plan Assessment/Plan Chief Complaint/Hosp Course # Possible CVA- no acute abnl on head ct, carotid u/s negative. pt with paf and mitral valve disease. was on noac, now switched to coumadin # PAF- given valvular heart disease with mitral stenosis, recommend coumadin for stroke prophy with goal inr 2.0 to 3.0 # Mitral stenosis- mild/moderate # HTN # HL # CAD >> cont coumadin with goal inr 2.0 to 3.0, given recent neuro changes will need briding with loveno >> cont on statin >> cont amio as per outpt mgmt f/u as outpt with Dr. Mandel Problems: Consultation Date/Type/Reason Admit Date/Time Dec 16, 2016 at 21:30 Type of Consultation: Cardiology Reason for Consultation afib, neuro changes Referring Provider: ZHOU VALDEZ MD 24 HR Interval Summary Free Text/Dictation no acute events. pt transferred to rehab. denies any neuro deficits. no cp/sob/ palpations. Detailed Summary ENT: no complaints Respiratory: no complaints Cardiovascular: no complaints Gastrointestinal: no complaints Exam/Review of Systems Vital Signs Vitals Vital Signs Date Time Temp Pulse Resp B/P Pulse Ox O2 Delivery O2 Flow Rate FiO2 12/18/16 07:30 98.4 67 18 124/98 96 Intake and Output 12/17/16 12/17/16 12/18/16 15:00 23:00 07:00 Intake Total 970 ml 840 ml 350 ml Balance 970 ml 840 ml 350 ml Exam Constitutional: alert, oriented, well developed Psych: nl mood/affect, no complaints Head: normocephalic Eyes: nl conjunctiva ENMT: nl external ears & nose Respiratory: clear to auscultation Cardiovascular: regular rate and rhythm Gastrointestinal: nl liver, spleen, soft Musculoskeletal: nl extremities to inspection Neurological: FISH HATCHERY SUPERINTENDENT II-XII intact Results Result Diagram: 12/17/16 1159 12/17/16 1115 Results 24 hrs Laboratory Tests Test 12/17/16 11:15 12/17/16 11:55 12/17/16 11:59 12/17/16 17:03 Alanine Aminotransferase (ALT/SGPT) 37 Albumin 3.8 Albumin/Globulin Ratio 1.46 Alkaline Phosphatase 76 Anion Gap 16 Aspartate Amino Transf (AST/SGOT) 28 Blood Urea Nitrogen 19 Calcium Level 9.3 Carbon Dioxide Level 28 Chloride Level 96 L Creatinine 1.26 H Direct Bilirubin 0.00 Globulin 2.60 Glucose Level 205 Indirect Bilirubin 0.2 Potassium Level 3.9 Sodium Level 136 Total Bilirubin 0.2 Total Protein 6.4 Bedside Glucose 210 176 Basophils # 0.0 Basophils % 0.6 Eosinophils # 0.3 Eosinophils % 4.3 Hematocrit 36.5 L Hemoglobin 11.3 L INR International Normalized Ratio 1.21 Lymphocytes # 1.5 Lymphocytes % 22.3 Mean Corpuscular Hemoglobin 26.1 L Mean Corpuscular Hemoglobin Concent 31.0 L Mean Corpuscular Volume 84.3 Mean Platelet Volume 10.8 H Monocytes # 0.5 Monocytes % 7.5 Neutrophils # 4.3 Neutrophils % 65.1 Nucleated Red Blood Cells # 0.0 Nucleated Red Blood Cells % 0.0 Platelet Count 272 Prothrombin Time 15.4 H Prothrombin Time Ratio 1.2 Red Blood Count 4.33 Red Cell Distribution Width 15.8 H White Blood Count 6.5 Test 12/17/16 20:23 12/18/16 06:30 12/18/16 07:43 Bedside Glucose 245 H 190 INR International Normalized Ratio 1.57 Prothrombin Time Pending Prothrombin Time Ratio 1.5 Medications Medications Current Medications Acetaminophen (Tylenol Tab) 650 mg Q6H PRN PO PAIN LEVEL 1-3 OR FEVER; Start at 22:11 Amiodarone HCl (Cordarone) 200 mg DAILY PO Last administered on 12/18/16t 08:06 ; Admin Dose 200 MG; Start 12/16/16 at 22:11 Glucose (Glutose) 15 gm Q15M PRN PO DECREASED GLUCOSE; Start 12/16/16 at 22:11 Glucose (Glutose) 22.5 gm Q15M PRN PO DECREASED GLUCOSE; Start 12/16/16 at 22:11 Dextrose (D50w Syringe) 25 ml Q15M PRN IV DECREASED GLUCOSE; Start 12/16/16 at 22:11 Dextrose (D50w Syringe) 50 ml Q15M PRN IV DECREASED GLUCOSE; Start 12/16/16 at 22:11 Glucagon (Glucagen) 1 mg Q15M PRN IM DECREASED GLUCOSE; Start 12/16/16 at 22:11 Glucose (Glutose) 15 gm Q15M PRN BUCCAL DECREASED GLUCOSE; Start 12/16/16 at 22: 11 Atorvastatin Calcium (Lipitor) 80 mg HS PO Last administered on 12/17/16 20:25 ; Admin Dose 80 MG; Start 12/16/16 at 22:11 Enoxaparin Sodium (Lovenox) 70 mg DAILY SC Last administered on 12/18/16 08:05 ; Admin Dose 70 MG; Start 12/16/16 at 22:11 Insulin Glargine (Lantus) 16 unit DAILY@20 SC Last administered on 12/17/16 20: 39; Admin Dose 16 UNIT; Start 12/16/16 at 22:11 Furosemide (Lasix) 20 mg DAILY PO Last administered on 12/18/16 08:06; Admin Dose 20 MG; Start 12/18/16 at 09:00 Procedures Procedures primary/consult notes reviewed in PAUL Resendiz Dec 18, 2016 08:26
[2016-12-18] MEDS: LINAGLIPTIN 5 MG TABLET PO SCH (12:11)
--- NOTE | 2016-12-18 12:24 | CONS ---
Date/Time of Note Date/Time of Note DATE: 12/18/16 TIME: 12:23 Consult Date/Type/Reason Admit Date/Time Dec 16, 2016 at 21:30 Initial Consult Date Type of Consultation: Cardiology Ordering Provider: ZHOU VALDEZ MD Subjective Doing well Objective pulm-cta abd-soft min assist ambulation Vital Signs Date Time Temp Pulse Resp B/P Pulse Ox O2 Delivery O2 Flow Rate FiO2 12/18/16 07:30 98.4 67 18 124/98 96 Intake and Output 12/17/16 12/17/16 12/18/16 15:00 23:00 07:00 Intake Total 970 ml 840 ml 350 ml Balance 970 ml 840 ml 350 ml Results/Medications Result Diagram: 12/17/16 1159 12/17/16 1115 Results 24 hrs Laboratory Tests Test 12/17/16 17:03 12/17/16 20:23 12/18/16 06:30 12/18/16 07:43 Bedside Glucose 176 245 H 190 INR International Normalized Ratio 1.57 Prothrombin Time 18.9 #H Prothrombin Time Ratio 1.5 Test 12/18/16 11:52 Bedside Glucose 176 Medications Current Medications Acetaminophen (Tylenol Tab) 650 mg Q6H PRN PO PAIN LEVEL 1-3 OR FEVER; Start at 22:11 Amiodarone HCl (Cordarone) 200 mg DAILY PO Last administered on 12/18/16t 08:06 ; Admin Dose 200 MG; Start 12/16/16 at 22:11 Glucose (Glutose) 15 gm Q15M PRN PO DECREASED GLUCOSE; Start 12/16/16 at 22:11 Glucose (Glutose) 22.5 gm Q15M PRN PO DECREASED GLUCOSE; Start 12/16/16 at 22:11 Dextrose (D50w Syringe) 25 ml Q15M PRN IV DECREASED GLUCOSE; Start 12/16/16 at 22:11 Dextrose (D50w Syringe) 50 ml Q15M PRN IV DECREASED GLUCOSE; Start 12/16/16 at 22:11 Glucagon (Glucagen) 1 mg Q15M PRN IM DECREASED GLUCOSE; Start 12/16/16 at 22:11 Glucose (Glutose) 15 gm Q15M PRN BUCCAL DECREASED GLUCOSE; Start 12/16/16 at 22: 11 Atorvastatin Calcium (Lipitor) 80 mg HS PO Last administered on 12/17/16 20:25 ; Admin Dose 80 MG; Start 12/16/16 at 22:11 Enoxaparin Sodium (Lovenox) 70 mg DAILY SC Last administered on 12/18/16 08:05 ; Admin Dose 70 MG; Start 12/16/16 at 22:11 Insulin Glargine (Lantus) 16 unit DAILY@20 SC Last administered on 12/17/16 20: 39; Admin Dose 16 UNIT; Start 12/16/16 at 22:11 Furosemide (Lasix) 20 mg DAILY PO Last administered on 12/18/16 08:06; Admin Dose 20 MG; Start 12/18/16 at 09:00 Linagliptin (Tradjenta) 5 mg DAILY PO Last administered on 12/18/16 12:11; Admin Dose 5 MG; Start 12/18/16 at 11:30 Assessment/Plan Additional Assessment/Plan Rehab-Infarct/CVA. Tolerating rehab program well Atrial fibrillation. Hypertension. Coronary artery disease. Diabetes mellitus. Gastroesophageal reflux disease. Hyperlipidemia. Chronic kidney disease. Peripheral neuropathy. Anemia History of colon carcinoma and resection. History of left lower lobe pneumonia. History of pacemaker placement. History of asthma. SOPHIE HALL MD Dec 18, 2016 12:24
--- NOTE | 2016-12-18 13:24 | CONS ---
Date/Time of Note Date/Time of Note DATE: 12/18/16 TIME: 13:22 Assessment/Plan Assessment/Plan Chief Complaint/Hosp Course #1 cerebrovascular accident versus transient ischemic attack with altered mental status, altered speech pattern, facial twitching. All of these symptoms seem to have improved. She is overall doing much better. Her speech is more fluent and the facial twitching has decreased significantly. The patient is here for the comprehensive rehabilitation program. #2 history of atrial fibrillation on Coumadin and Lovenox now. We are attempting to get her INR in the therapeutic range. She is on Lovenox for bridging. She was previously on Xarelto. She was found to have moderate mitral stenosis and switched to Coumadin by the warehouse forklift operator. #3 hypertension blood pressure is controlled #4 type 2 diabetes mellitus, her blood sugars have been high. I will increase her Lantus insulin to 20 units a day and call her slope hoist operator to see her. #5 cardiac pacemaker #6 coronary artery disease status post stent placement #7 anemia #8 history of breast cancer #9 history of colon cancer status post resection. Problems: Consultation Date/Type/Reason Admit Date/Time Dec 16, 2016 at 21:30 Type of Consultation: Cardiology Referring Provider: ZHOU VALDEZ MD 24 HR Interval Summary Free Text/Dictation She is overall doing well. She is participating with physical therapy and making progress. She has noted that her blood sugars have been high. Constitutional: improved, no complaints Exam/Review of Systems Vital Signs Vitals Vital Signs Date Time Temp Pulse Resp B/P Pulse Ox O2 Delivery O2 Flow Rate FiO2 12/18/16 07:30 98.4 67 18 124/98 96 Intake and Output 12/17/16 12/17/16 12/18/16 15:00 23:00 07:00 Intake Total 970 ml 840 ml 350 ml Balance 970 ml 840 ml 350 ml Exam Constitutional: alert, oriented, well developed Psych: nl mood/affect, no complaints Respiratory: clear to auscultation, normal air movement Cardiovascular: nl pulses, regular rate and rhythm Gastrointestinal: soft Musculoskeletal: nl extremities to inspection Results Result Diagram: 12/17/16 1159 12/17/16 1115 Results 24 hrs Laboratory Tests Test 12/17/16 17:03 12/17/16 20:23 12/18/16 06:30 12/18/16 07:43 Bedside Glucose 176 245 H 190 INR International Normalized Ratio 1.57 Prothrombin Time 18.9 #H Prothrombin Time Ratio 1.5 Test 12/18/16 11:52 Bedside Glucose 176 Medications Medications Current Medications Acetaminophen (Tylenol Tab) 650 mg Q6H PRN PO PAIN LEVEL 1-3 OR FEVER; Start at 22:11 Amiodarone HCl (Cordarone) 200 mg DAILY PO Last administered on 12/18/16 08:06 ; Admin Dose 200 MG; Start 12/16/16 at 22:11 Glucose (Glutose) 15 gm Q15M PRN PO DECREASED GLUCOSE; Start 12/16/16 at 22:11 Glucose (Glutose) 22.5 gm Q15M PRN PO DECREASED GLUCOSE; Start 12/16/16 at 22:11 Dextrose (D50w Syringe) 25 ml Q15M PRN IV DECREASED GLUCOSE; Start 12/16/16 at 22:11 Dextrose (D50w Syringe) 50 ml Q15M PRN IV DECREASED GLUCOSE; Start 12/16/16 at 22:11 Glucagon (Glucagen) 1 mg Q15M PRN IM DECREASED GLUCOSE; Start 12/16/16 at 22:11 Glucose (Glutose) 15 gm Q15M PRN BUCCAL DECREASED GLUCOSE; Start 12/16/16 at 22: 11 Atorvastatin Calcium (Lipitor) 80 mg HS PO Last administered on 12/17/16 20:25 ; Admin Dose 80 MG; Start 12/16/16 at 22:11 Enoxaparin Sodium (Lovenox) 70 mg DAILY SC Last administered on 12/18/16 08:05 ; Admin Dose 70 MG; Start 12/16/16 at 22:11 Insulin Glargine (Lantus) 16 unit DAILY@20 SC Last administered on 12/17/16 20: 39; Admin Dose 16 UNIT; Start 12/16/16 at 22:11 Furosemide (Lasix) 20 mg DAILY PO Last administered on 12/18/16 08:06; Admin Dose 20 MG; Start 12/18/16 at 09:00 Linagliptin (Tradjenta) 5 mg DAILY PO Last administered on 12/18/16 12:11; Admin Dose 5 MG; Start 12/18/16 at 11:30 ZHOU VALDEZ MD Dec 18, 2016 13:23
--- NOTE | 2016-12-18 16:12 | CONS ---
Date/Time of Note Date/Time of Note DATE: 12/18/16 TIME: 14:19 Assessment/Plan Assessment/Plan Problems: (1) Type 2 diabetes mellitus without complications Status: Chronic Comment: Pt. has long-been maintained on multidose insulin therapy and metformin. Metformin being held in hospital due to borderline renal function. Has been receiving usual dose basal insulin but mealtime insulin has been held in favor of simple ISS only. This will not control this pt. Will restart mealtime insulin at slightly lower dosage than she is used to b/c hospital food likely calorie restricted compared to her norm and add linagliptin 5 mg/d. Start Novolog 8 units qac and monitor. Will follow with you. Qualifiers: Qualified Code: E11.9 - Type 2 diabetes mellitus without complication, with long-term current use of insulin Consultation Date/Type/Reason Admit Date/Time Dec 16, 2016 at 21:30 Date of Consultation: Dec 18, 2016 Type of Consultation: Endocrinology Reason for Consultation T2DM management Referring Provider: ZHOU VALDEZ MD Hx of Present Illness Pt. is 76 y/o C F w/ h/o T2DM, HTN, asthma, A-fib w/ pacer, CKD stage 2, GERD, BrCA, colon CA (both in distant past) in H until few days before admit when she developed facial twitching and word-finding difficulty. No limb weakness. CT negative. Cannot have MRI secondary to pacer. Transferred to rehab. Metformin held due to renal function. Mealtime insulin converted to ISS only. FS above goal. Pt. called our office to assist w/ glycemic management. Constitutional: improved, no complaints ENT: no complaints Respiratory: no complaints Cardiovascular: no complaints Gastrointestinal: no complaints Genitourinary: no complaints Musculoskeletal: no complaints Neurologic: other (word-finding difficulty improving) Psychological: nl mood/affect, no complaints Past Medical History Medical History: cancer (colon, breast), diabetes, GERD, hypertension, renal disease (stage 2), other (A-Fib, asthma) Past Surgical History Past Surgical Hx: angioplasty, other (pacemaker, partial colectomy, MIKAYLA-BSO, lumpectomy w/ seg-ax) Family History Significant Family History: asthma (sister), heart disease (mother), vascular disease (father), other (mental d/o in daughter) Social History b. 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, , 3 children Alcohol Use: occasionally Smoking Status: Former smoker (0.2 ppd x 7 y) Drug Use: none Exam/Review of Systems Vital Signs Vitals VS - Last 72 Hours, by Label Date Time Temp Pulse Resp B/P Pulse Ox O2 Delivery O2 Flow Rate FiO2 12/18/16 07:30 98.4 67 18 124/98 96 12/17/16 19:46 98.2 68 20 134/62 95 12/17/16 08:24 98.5 64 18 126/61 97 12/16/16 22:41 98.7 64 20 134/65 94 Vital Signs Date Time Temp Pulse Resp B/P Pulse Ox O2 Delivery O2 Flow Rate FiO2 12/18/16 07:30 98.4 67 18 124/98 96 Intake and Output 12/17/16 12/17/16 12/18/16 15:00 23:00 07:00 Intake Total 970 ml 840 ml 350 ml Balance 970 ml 840 ml 350 ml Exam Constitutional: alert, obese, oriented Psych: nl mood/affect, no complaints Eyes: EOMI, PERRL, nl conjunctiva, nl lids, nl sclera ENMT: mucosa pink and moist, nl external ears & nose Neck: non-tender, supple, No bruits, No masses, No thyromegaly Respiratory: clear to auscultation, normal air movement Cardiovascular: nl pulses, regular rate and rhythm, No edema, No murmurs/extra sounds, No rub Gastrointestinal: bowel sounds, nl liver, spleen, non-tender, soft, No mass, No rebound or guarding Musculoskeletal: nl extremities to inspection Extremities: normal pulses, No clubbing, No cyanosis, No edema Neurological: PINBALL MACHINE REPAIRER II-XII intact, nl mental status, nl speech, nl strength Additional Comments Bedside Glucose - 72 Hours Test 12/17/16 07:28 12/17/16 11:55 12/17/16 17:03 12/17/16 20:23 Bedside Glucose 199mg/dL (70-220) 210mg/dL (70-220) 176mg/dL (70-220) 245mg/dL (70-220) H Test 12/18/16 07:43 12/18/16 11:52 Bedside Glucose 190mg/dL (70-220) 176mg/dL (70-220) Results Result Diagram: 12/17/16 1159 12/17/16 1115 Results 24 hrs Laboratory Tests Test 12/17/16 17:03 12/17/16 20:23 12/18/16 06:30 12/18/16 07:43 Bedside Glucose 176 245 H 190 INR International Normalized Ratio 1.57 Prothrombin Time 18.9 #H Prothrombin Time Ratio 1.5 Test 12/18/16 11:52 Bedside Glucose 176 Medications Medications Current Medications Acetaminophen (Tylenol Tab) 650 mg Q6H PRN PO PAIN LEVEL 1-3 OR FEVER; Start at 22:11 Amiodarone HCl (Cordarone) 200 mg DAILY PO Last administered on 12/18/16 08:06 ; Admin Dose 200 MG; Start 12/16/16 at 22:11 Glucose (Glutose) 15 gm Q15M PRN PO DECREASED GLUCOSE; Start 12/16/16 at 22:11 Glucose (Glutose) 22.5 gm Q15M PRN PO DECREASED GLUCOSE; Start 12/16/16 at 22:11 Dextrose (D50w Syringe) 25 ml Q15M PRN IV DECREASED GLUCOSE; Start 12/16/16 at 22:11 Dextrose (D50w Syringe) 50 ml Q15M PRN IV DECREASED GLUCOSE; Start 12/16/16 at 22:11 Glucagon (Glucagen) 1 mg Q15M PRN IM DECREASED GLUCOSE; Start 12/16/16 at 22:11 Glucose (Glutose) 15 gm Q15M PRN BUCCAL DECREASED GLUCOSE; Start 12/16/16 at 22: 11 Atorvastatin Calcium (Lipitor) 80 mg HS PO Last administered on 12/17/16 20:25 ; Admin Dose 80 MG; Start 12/16/16 at 22:11 Enoxaparin Sodium (Lovenox) 70 mg DAILY SC Last administered on 12/18/16 08:05 ; Admin Dose 70 MG; Start 12/16/16 at 22:11 Furosemide (Lasix) 20 mg DAILY PO Last administered on 12/18/16 08:06; Admin Dose 20 MG; Start 12/18/16 at 09:00 Linagliptin (Tradjenta) 5 mg DAILY PO Last administered on 12/18/16 12:11; Admin Dose 5 MG; Start 3/8/17 at 11:30 Insulin Glargine (Lantus) 20 unit DAILY@20 SC ; Start 12/18/16 at 20:00 Warfarin Sodium (Coumadin) 7.5 mg ONCE@17 ONCE PO ; Start 12/18/16 at 17:00; Stop 12/18/16 at 17:01 LANDY SINGH MD Dec 18, 2016 14:29
[2016-12-18] MEDS ORDERED: WARFARIN 7.5 MG TAB PO ONE (17:00)
--- NOTE | 2016-12-18 19:32 | CONS ---
DATE OF ADMISSION: 12/16/2016 DATE OF CONSULTATION: 12/18/2016 TYPE OF CONSULTATION: Psychological. REFERRING PHYSICIAN: Sophie Mcdaniel MD CONSULTING PSYCHOLOGIST: Trang Hook, PhD REASON FOR CONSULTATION: This consultation was requested by Dr. Stefany Mcdaniel in order to evaluate the cognitive and emotional functioning of this patient related to her present medical condition. HISTORY OF PRESENT ILLNESS: The patient is a 76-year-old female. She has a history of multiple med ical comorbidities. She has chronic atrial fibrillation with a pacemaker placement and was admitted to the hospital with facial twitching. The patient did have some word finding deficits and some ri ght-sided weakness. It was felt the patient likely had a CVA. The patient was cleared medically an d then transferred to the rehabilitation unit for comprehensive interdisciplinary rehabilitation car e. The patient is concerned about her present medical condition and does want to return to her prev ious level of functioning. The patient reports that she did have a stroke 4 to 5 years ago and then another stroke not too long after that. The patient does report a level of anxiety and depression and over all of her health concerns. FAMILY AND SOCIAL HISTORY: The patient reports that she lives at home with her in a home in [place]. The patient wants to return there after discharge. The patient's was in e room during the consultation with the patient's permission. MEDICATIONS: The patient is currently not on any psychotropic medications. SUBSTANCE USE: The patient reports that she did smoke from age 12 to 21, but quit after that time a nd has not smoked since. The patient reports that she used to drink a lot, but now stopped 6 to 7 y ears ago and likely will not have a drink. MENTAL STATUS EXAMINATION: APPEARANCE: The patient was seen sitting on the side of her bed. The patient is of average height and obese. The patient is right-handed. BEHAVIOR: The patient was cooperative during the consultation. The patient did attempt to answer a ll questions presented to her by the interviewer. MOOD AND AFFECT: The patient's mood appears to be slightly depressed. Affect does appear to be sli ghtly anxious. MEMORY AND COGNITION: The patient's memory and cognition appear to be basically intact. She was ab le to name the hospital. The patient was able to say the month and the year, the patient was able t o say who the plastering contractor is, who the governor of the [facility] is, and the mayor of the [facility]. The patient was able to spell "world" backwards. She was able to do 3 serial 7 subtracti ons before she made an error. The patient does report that she feels like her memory is slipping, b ut she is functioning adequately at the present time. INTELLIGENCE: Intelligence appears to fall in the average range when she is functioning at her best . INSIGHT: Fair. JUDGMENT: Fair. THOUGHT CONTENT: The patient is concerned about her present medical condition. The patient does wa nt to return home and be as independent as she can be after discharge. The patient is motivated to work on herself so that she can increase her level of functioning. DISCUSSION: The patient can likely benefit from some cognitive/behavioral psychotherapy while she i s on the unit. This psychotherapy would focus on her underlying level of frustration and depression about her health concerns. 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 Thank you very much, Dr. Stefany Mcdaniel, for referring this individual. Please do not hesitate to ca ll if you have additional questions. Dictated By: TRANG HOOK PHD RIO/MENDEL Conf#: [id number] DID#: [id number] CC: SOPHIE MCDANIEL MD;*EndCC*
--- NOTE | 2016-12-18 20:03 | CONS ---
DATE OF ADMISSION: 12/16/2016 DATE OF CONSULTATION: REFERRING PHYSICIAN: Nasir Valdez MD HISTORY OF PRESENT ILLNESS: The patient is a 76-year-old lady who has a past medical history of atr ial fibrillation, complicated by stroke, anticoagulation, hypertension, diabetes type 2, coronary ar margaux disease, cardiac pacemaker, anemia, breast cancer, colon cancer, status post resection. CURRENT MEDICATIONS Include: 1. Lantus 20 mg once a day. 2. Lasix 20 mg once a day as needed. 3. Albuterol 2 puffs twice a day as needed. 4. ____. 5. Tylenol 650 mg twice a day. 6. Colace 100 mg twice a day. 7. Cordarone 200 mg once a day. 8. Lipitor 80 mg once a day. 9. Lovenox 70 mg once a day. 8. Insulin as needed. PHYSICAL EXAMINATION GENERAL: The patient is alert, awake, oriented, following simple commands without difficulty NEUROLOGIC EXAMINATION CRANIAL NERVES: II: Pupils equal on both sides, reactive to light. III, IV and : Extraocular muscles intact. V: Equal sensation to face. VII: Symmetrical face. VIII: Equal hearing bilaterally. IX, X: Palate elevates equally. XI: Elevates shoulder 5/5. XII: With straight tongue. MOTOR: Decreased right hand cleaning porter, 4+/5. SENSATION: Decreased for glove and sock area for light touch and temperature. COORDINATION: Bomfiv-[id number] test intact. HEART: Regular rate and rhythm. LUNGS: Equal breath sounds. ABDOMEN: Soft, relaxed, nondistended. No tenderness. ASSESSMENT AND PLAN 1. The patient is a 76-year-old with underlying stroke. We should give the patient Coumadin and ke ep INR between 2 and 3 mg, adjusting her Coumadin level for that. 2. Continue the Lovenox IV until the Coumadin is a therapeutic level and then discontinue the Loven ox and continue the Coumadin at therapeutic dose. 3. History of underlying atrial fibrillation. The patient's seen by manager export and switched the patient from Dilaudid to Coumadin. 4. History of seizure. Follow up the patient with electroencephalogram if needed if any seizure ac tivity is seen; however, keep the patient under seizure precautions and aspiration precautions for n ow. 5. Due to the stroke, we sent the patient to acute rehab for continuation of his medication and con tinuation of her physical activity, with the gait balance and acute rehabilitation. 6. History of dyslipidemia. We will follow up the patient on Lipitor 80 mg once a day and follow u p the patient with lipid panel. 7. History of diabetes. The patient is already on sliding scale insulin and we will follow up the patient as needed. Again, thank you for asking me to see this patient with you. Dictated By: KAITLIN JACK MD NA/NTS Conf#: [id number] DID#: [id number] CC: NASIR VALDEZ MD;*EndCC*
[2016-12-18] MEDS: ATORVASTATIN 80 MG TAB PO SCH (20:13)
[2016-12-18] MEDS: INSULIN GLARGINE [LANtus] 3 ML PEN SC SCH (20:18)
[2016-12-18 20:29] VITALS: BP 112/55; RESP 18
[2016-12-19 06:19] LABS: INR 1.95; PROTIME 22.4 Sec (12.2-14.2); PT RATIO 1.8
[2016-12-19 07:30] VITALS: BP 140/66; RESP 18
[2016-12-19] MEDS: INSULIN ASPART [NOVOLOG] 3 ML PEN SC SCH ×7 (07:35→21:00)
[2016-12-19] MEDS: ENOXAPARIN 80 MG/0.8 ML SYG SC SCH (08:04)
[2016-12-19] MEDS: FUROSEMIDE 20 MG TAB PO SCH (08:05)
[2016-12-19] MEDS: LINAGLIPTIN 5 MG TABLET PO SCH (08:05)
[2016-12-19] MEDS: AMIODARONE 200 MG TAB PO SCH (08:05)
--- NOTE | 2016-12-19 12:03 | CONS ---
Date/Time of Note Date/Time of Note DATE: 12/19/16 TIME: 12:02 Consult Date/Type/Reason Admit Date/Time Dec 16, 2016 at 21:30 Type of Consultation: Endocrinology Ordering Provider: ZHOU VALDEZ MD Subjective Comfortable Objective pulm-cta amb min assist Vital Signs Date Time Temp Pulse Resp B/P Pulse Ox O2 Delivery O2 Flow Rate FiO2 12/19/16 07:30 97.8 18 140/66 95 12/18/16 20:29 64 Intake and Output 12/18/16 12/18/16 12/19/16 14:59 22:59 06:59 Intake Total 720 ml 840 ml 520 ml Balance 720 ml 840 ml 520 ml Results/Medications Result Diagram: 12/17/16 1159 12/17/16 1115 Results 24 hrs Laboratory Tests Test 12/18/16 17:00 12/18/16 20:17 12/19/16 05:48 12/19/16 07:27 Bedside Glucose 119 147 135 INR International Normalized Ratio 1.95 Prothrombin Time 22.4 H Prothrombin Time Ratio 1.8 Medications Current Medications Acetaminophen (Tylenol Tab) 650 mg Q6H PRN PO PAIN LEVEL 1-3 OR FEVER; Start at 22:11 Amiodarone HCl (Cordarone) 200 mg DAILY PO Last administered on 12/19/16 08:05 ; Admin Dose 200 MG; Start 12/16/16 at 22:11 Glucose (Glutose) 15 gm Q15M PRN PO DECREASED GLUCOSE; Start 12/16/16 at 22:11 Glucose (Glutose) 22.5 gm Q15M PRN PO DECREASED GLUCOSE; Start 12/16/16 at 22:11 Dextrose (D50w Syringe) 25 ml Q15M PRN IV DECREASED GLUCOSE; Start 12/16/16 at 22:11 Dextrose (D50w Syringe) 50 ml Q15M PRN IV DECREASED GLUCOSE; Start 12/16/16 at 22:11 Glucagon (Glucagen) 1 mg Q15M PRN IM DECREASED GLUCOSE; Start 12/16/16 at 22:11 Glucose (Glutose) 15 gm Q15M PRN BUCCAL DECREASED GLUCOSE; Start 12/16/16 at 22: 11 Atorvastatin Calcium (Lipitor) 80 mg HS PO Last administered on 12/18/16 20:13 ; Admin Dose 80 MG; Start 12/16/16 at 22:11 Enoxaparin Sodium (Lovenox) 70 mg DAILY SC Last administered on 12/19/16 08:04 ; Admin Dose 70 MG; Start 12/16/16 at 22:11 Furosemide (Lasix) 20 mg DAILY PO Last administered on 12/19/16 08:05; Admin Dose 20 MG; Start 12/18/16 at 09:00 Linagliptin (Tradjenta) 5 mg DAILY PO Last administered on 12/19/16 08:05; Admin Dose 5 MG; Start 12/18/16 at 11:30 Insulin Glargine (Lantus) 20 unit DAILY@20 SC Last administered on 12/18/16 20: 18; Admin Dose 20 UNIT; Start 12/18/16 at 20:00 Assessment/Plan Additional Assessment/Plan Rehab-Infarct/CVA. Progressing with rehab program Atrial fibrillation. Hypertension. Coronary artery disease. Diabetes mellitus. Gastroesophageal reflux disease. Hyperlipidemia. Chronic kidney disease. Peripheral neuropathy. Anemia History of colon carcinoma and resection. History of left lower lobe pneumonia. History of pacemaker placement. History of asthma. SOPHIE HALL MD Dec 19, 2016 12:03
[2016-12-19] MEDS ORDERED: BETAMETHASONE/CLOTRIMAZOLE 15 GM CR TOP PRN (14:00)
--- NOTE | 2016-12-19 14:01 | CONS ---
Date/Time of Note Date/Time of Note DATE: 12/19/16 TIME: 13:58 Assessment/Plan Assessment/Plan Chief Complaint/Hosp Course #1 cerebrovascular accident versus transient ischemic attack with altered mental status, altered speech pattern, facial twitching. All of these symptoms have improved. She is overall doing much better. Her speech is more fluent and the facial twitching has decreased significantly. The patient is here for the comprehensive rehabilitation program. #2 history of atrial fibrillation on Coumadin and Lovenox now. We are attempting to get her INR in the therapeutic range. She is on Lovenox for bridging. She was previously on Xarelto. She was found to have moderate mitral stenosis and switched to Coumadin by the diplomatic courier. #3 hypertension blood pressure is controlled #4 type 2 diabetes mellitus, her blood sugars have been high. I will increase her Lantus insulin to 20 units a day and call her joint supervisor to see her.Dr Lentz is seeing her . #5 cardiac pacemaker #6 coronary artery disease status post stent placement #7 anemia #8 history of breast cancer #9 history of colon cancer status post resection. Problems: Consultation Date/Type/Reason Admit Date/Time Dec 16, 2016 at 21:30 Type of Consultation: renal Referring Provider: ZHOU VALDEZ MD 24 HR Interval Summary Free Text/Dictation She is awake and alert . She is overall feeling better . Constitutional: improved, no complaints Exam/Review of Systems Vital Signs Vitals Vital Signs Date Time Temp Pulse Resp B/P Pulse Ox O2 Delivery O2 Flow Rate FiO2 12/19/16 07:30 97.8 18 140/66 95 12/18/16 20:29 64 Intake and Output 12/18/16 12/18/16 12/19/16 15:00 23:00 07:00 Intake Total 720 ml 840 ml 520 ml Balance 720 ml 840 ml 520 ml Exam Constitutional: alert, oriented, well developed Psych: nl mood/affect, no complaints Respiratory: clear to auscultation, normal air movement Cardiovascular: regular rate and rhythm Extremities: edema Results Result Diagram: 12/17/16 1159 12/17/16 1115 Results 24 hrs Laboratory Tests Test 12/18/16 17:00 12/18/16 20:17 12/19/16 05:48 12/19/16 07:27 Bedside Glucose 119 147 135 INR International Normalized Ratio 1.95 Prothrombin Time 22.4 H Prothrombin Time Ratio 1.8 Test 12/19/16 12:13 Bedside Glucose 123 Medications Medications Current Medications Acetaminophen (Tylenol Tab) 650 mg Q6H PRN PO PAIN LEVEL 1-3 OR FEVER; Start at 22:11 Amiodarone HCl (Cordarone) 200 mg DAILY PO Last administered on 12/19/16 08:05 ; Admin Dose 200 MG; Start 12/16/16 at 22:11 Glucose (Glutose) 15 gm Q15M PRN PO DECREASED GLUCOSE; Start 12/16/16 at 22:11 Glucose (Glutose) 22.5 gm Q15M PRN PO DECREASED GLUCOSE; Start 12/16/16 at 22:11 Dextrose (D50w Syringe) 25 ml Q15M PRN IV DECREASED GLUCOSE; Start 12/16/16 at 22:11 Dextrose (D50w Syringe) 50 ml Q15M PRN IV DECREASED GLUCOSE; Start 12/16/16 at 22:11 Glucagon (Glucagen) 1 mg Q15M PRN IM DECREASED GLUCOSE; Start 12/16/16 at 22:11 Glucose (Glutose) 15 gm Q15M PRN BUCCAL DECREASED GLUCOSE; Start 12/16/16 at 22: 11 Atorvastatin Calcium (Lipitor) 80 mg HS PO Last administered on 12/18/16 20:13 ; Admin Dose 80 MG; Start 12/16/16 at 22:11 Enoxaparin Sodium (Lovenox) 70 mg DAILY SC Last administered on 12/19/16 08:04 ; Admin Dose 70 MG; Start 12/16/16 at 22:11 Furosemide (Lasix) 20 mg DAILY PO Last administered on 12/19/16 08:05; Admin Dose 20 MG; Start 12/18/16 at 09:00 Linagliptin (Tradjenta) 5 mg DAILY PO Last administered on 12/19/16 08:05; Admin Dose 5 MG; Start 12/18/16 at 11:30 Insulin Glargine (Lantus) 20 unit DAILY@20 SC Last administered on 12/18/16 20: 18; Admin Dose 20 UNIT; Start 12/18/16 at 20:00 Betamethasone/ Clotrimazole (Lotrisone Cr) 1 applic BID PRN TOP ITCHING; Start 12/19/16 at 14:00 ZHOU VALDEZ MD Dec 19, 2016 14:01
[2016-12-19] MEDS ORDERED: WARFARIN 5 MG TAB PO SCH (17:00)
--- NOTE | 2016-12-19 18:42 | CONS ---
Date/Time of Note Date/Time of Note DATE: 12/19/16 TIME: 18:40 Assessment/Plan Assessment/Plan Problems: (1) Type 2 diabetes mellitus without complications Status: Chronic Comment: Marked improvement in glycemic control. Cont. linagliptin and novolog 8 units qac. Qualifiers: Diabetes mellitus termite control representative insulin use: with termite control representative use Qualified Code : E11.9 - Type 2 diabetes mellitus without complication, with long-term current use of insulin Consultation Date/Type/Reason Admit Date/Time Dec 16, 2016 at 21:30 Initial Consult Date 12/18/16 Type of Consultation: Endocrinology Reason for Consultation T2DM management Referring Provider: ZHOU VALDEZ MD 24 HR Interval Summary Constitutional: improved, no complaints Detailed Summary Respiratory: no complaints Cardiovascular: no complaints Gastrointestinal: no complaints Genitourinary: no complaints Musculoskeletal: no complaints Neurologic: no complaints Exam/Review of Systems Vital Signs Vitals VS - Last 72 Hours, by Label Date Time Temp Pulse Resp B/P Pulse Ox O2 Delivery O2 Flow Rate FiO2 12/19/16 07:30 97.8 18 140/66 95 12/18/16 20:29 98.5 64 18 112/55 96 12/18/16 07:30 98.4 67 18 124/98 96 12/17/16 19:46 98.2 68 20 134/62 95 12/17/16 08:24 98.5 64 18 126/61 97 12/16/16 22:41 98.7 64 20 134/65 94 Vital Signs Date Time Temp Pulse Resp B/P Pulse Ox O2 Delivery O2 Flow Rate FiO2 12/19/16 07:30 97.8 18 140/66 95 12/18/16 20:29 64 Intake and Output 12/18/16 12/18/16 12/19/16 15:00 23:00 07:00 Intake Total 720 ml 840 ml 520 ml Balance 720 ml 840 ml 520 ml Exam Constitutional: alert, obese, oriented Psych: nl mood/affect, no complaints Respiratory: clear to auscultation, normal air movement Cardiovascular: nl pulses, regular rate and rhythm, No edema, No murmurs/extra sounds, No rub Gastrointestinal: bowel sounds, nl liver, spleen, non-tender, soft, No mass, No rebound or guarding Musculoskeletal: nl extremities to inspection Extremities: normal pulses, No clubbing, No cyanosis, No edema Neurological: WEEKEND CAREGIVER II-XII intact, nl mental status, nl speech, nl strength Additional Comments Bedside Glucose - 72 Hours Test 12/17/16 07:28 12/17/16 11:55 12/17/16 17:03 12/17/16 20:23 Bedside Glucose 199mg/dL (70-220) 210mg/dL (70-220) 176mg/dL (70-220) 245mg/dL (70-220) H Test 12/18/16 07:43 12/18/16 11:52 12/18/16 17:00 12/18/16 20:17 Bedside Glucose 190mg/dL (70-220) 176mg/dL (70-220) 119mg/dL (70-220) 147mg/dL (70-220) Test 12/19/16 07:27 12/19/16 12:13 12/19/16 17:28 Bedside Glucose 135mg/dL (70-220) 123mg/dL (70-220) 112mg/dL (70-220) Results Result Diagram: 12/17/16 1159 12/17/16 1115 Results 24 hrs Laboratory Tests Test 12/18/16 20:17 12/19/16 05:48 12/19/16 07:27 12/19/16 12:13 Bedside Glucose 147 135 123 INR International Normalized Ratio 1.95 Prothrombin Time 22.4 H Prothrombin Time Ratio 1.8 Test 12/19/16 17:28 Bedside Glucose 112 Medications Medications Current Medications Acetaminophen (Tylenol Tab) 650 mg Q6H PRN PO PAIN LEVEL 1-3 OR FEVER; Start at 22:11 Amiodarone HCl (Cordarone) 200 mg DAILY PO Last administered on 12/19/16t 08:05 ; Admin Dose 200 MG; Start 12/16/16 at 22:11 Glucose (Glutose) 15 gm Q15M PRN PO DECREASED GLUCOSE; Start 12/16/16 at 22:11 Glucose (Glutose) 22.5 gm Q15M PRN PO DECREASED GLUCOSE; Start 12/16/16 at 22:11 Dextrose (D50w Syringe) 25 ml Q15M PRN IV DECREASED GLUCOSE; Start 12/16/16 at 22:11 Dextrose (D50w Syringe) 50 ml Q15M PRN IV DECREASED GLUCOSE; Start 12/16/16 at 22:11 Glucagon (Glucagen) 1 mg Q15M PRN IM DECREASED GLUCOSE; Start 12/16/16 at 22:11 Glucose (Glutose) 15 gm Q15M PRN BUCCAL DECREASED GLUCOSE; Start 12/16/16 at 22: 11 Atorvastatin Calcium (Lipitor) 80 mg HS PO Last administered on 12/18/16 20:13 ; Admin Dose 80 MG; Start 12/16/16 at 22:11 Enoxaparin Sodium (Lovenox) 70 mg DAILY SC Last administered on 12/19/16 08:04 ; Admin Dose 70 MG; Start 12/16/16 at 22:11 Furosemide (Lasix) 20 mg DAILY PO Last administered on 12/19/16 08:05; Admin Dose 20 MG; Start 12/18/16 at 09:00 Linagliptin (Tradjenta) 5 mg DAILY PO Last administered on 12/19/16 08:05; Admin Dose 5 MG; Start 12/18/16 at 11:30 Insulin Glargine (Lantus) 20 unit DAILY@20 SC Last administered on 12/18/16 20: 18; Admin Dose 20 UNIT; Start 12/18/16 at 20:00 Betamethasone/ Clotrimazole (Lotrisone Cr) 1 applic BID PRN TOP ITCHING; Start 12/19/16 at 14:00 Warfarin Sodium (Coumadin) 5 mg DAILY@17 PO Last administered on 12/19/16 17:44 ; Admin Dose 5 MG; Start 12/19/16 at 17:00 LANDY SINGH MD Dec 19, 2016 18:42
[2016-12-19 20:56] VITALS: BP 120/67; RESP 19
[2016-12-19] MEDS: ATORVASTATIN 80 MG TAB PO SCH (21:47)
[2016-12-19] MEDS: INSULIN GLARGINE [LANtus] 3 ML PEN SC SCH (21:48)
--- NOTE | 2016-12-20 03:24 | SP ---
DATE OF PROCEDURE: HISTORY OF PRESENT ILLNESS: Patient is a 76-year-old lady admitted to [facility] with underlying stroke, atrial fibrillation. The patient with anticoagulation in which they switche d from Xarelto to Coumadin. Patient has a history of hypertension, diabetes type 2, coronary artery disease, cardiac pacemaker, anemia, breast cancer, colon cancer. CURRENT MEDICATIONS: Include: 1. Lantus 20 mg once a day. 2. Lasix 20 mg once a day. 3. Albuterol 2 puffs inhaled twice a day. 4. Tylenol 650 mg twice a day. 5. Colace 100 mg twice a day. 6. Cordarone 200 mg once a day. 7. Lipitor 80 mg once a day. 8. Lovenox 70 mg once a day. 9. ____ as needed. PHYSICAL EXAMINATION: GENERAL: The patient is alert, awake, oriented, following simple commands. CRANIAL NERVES: Cranial nerve II: Pupils equal on both sides, reactive to light. Cranial nerves I II, IV, and : Extraocular muscles intact ____. Cranial nerve V: Equal sensation to face. Crani al nerve VII: Symmetrical face. Cranial nerve VIII: Equal hearing bilaterally. Cranial nerves IX and X: Elevates palate. Cranial nerve XI: Elevates, shoulder 5/5. Cranial nerve XII: With straight tongue. MOTOR: Moving both upper and lower extremities against gravity. Sensation decreased for glove and sock area for light touch and temperature. COORDINATION: [id number] test intact. HEART: Regular rate and rhythm. LUNGS: Equal breath sounds. ABDOMEN: Soft, relaxed, nondistended. No tenderness. ASSESSMENT AND PLAN 1. The patient is a 76-year-old with underlying stroke. Will keep the patient on Coumadin and keep the INR at the level of 2 to 3. 2. Continue the patient under physical therapy and rehab for gait balance as well as ____ of her bi lateral ____ extremities. 3. History of atrial fibrillation with the patient on Coumadin to follow up with INR level. 4. History of seizure in which her electroencephalogram is within normal limits ____ the previous o ne. Follow up the patient with seizure precautions. 5. Dyslipidemia. Follow up the patient with Lipitor 80 mg once a day to avoid getting more strokes down the road. 6. History of diabetes. We counseled the patient about ____ as well as follow up the patient's hem oglobin A1c and sliding scale insulin. Again, thank you for asking me to see the patient with you. Dictated By: KAITLIN DANIEL/MENDEL Conf#: [id number] DID#: [id number]
[2016-12-20 07:30] VITALS: BP 126/75; RESP 18
[2016-12-20 07:49] LABS: INR 2.77; PROTIME 29.6 Sec (12.2-14.2); PT RATIO 2.3
[2016-12-20] MEDS: INSULIN ASPART [NOVOLOG] 3 ML PEN SC SCH ×7 (07:56→20:18)
[2016-12-20] MEDS: FUROSEMIDE 20 MG TAB PO SCH (08:12)
[2016-12-20] MEDS: LINAGLIPTIN 5 MG TABLET PO SCH (08:12)
[2016-12-20] MEDS: AMIODARONE 200 MG TAB PO SCH (08:12)
[2016-12-20] MEDS: ENOXAPARIN 80 MG/0.8 ML SYG SC SCH (08:13)
--- NOTE | 2016-12-20 09:38 | CONS ---
Date/Time of Note Date/Time of Note DATE: 12/20/16 TIME: 09:33 Assessment/Plan Assessment/Plan Chief Complaint/Hosp Course #1 cerebrovascular accident versus transient ischemic attack with altered mental status, altered speech pattern, facial twitching. All of these symptoms have improved. She is overall doing much better. Her speech is more fluent and the facial twitching has decreased significantly. she is up walking with PT and doing well . The patient is here for the comprehensive rehabilitation program. #2 history of atrial fibrillation on Coumadin and Lovenox now . Her INR is in therapeutic range . Will D/C Lovenox . She was previously on Xarelto. She was found to have moderate mitral stenosis and switched to Coumadin by the claims examiner. #3 hypertension blood pressure is controlled #4 type 2 diabetes mellitus, her blood sugars have been high. I will increase her Lantus insulin to 20 units a day and call her poultry grader to see her.Dr Lentz is seeing her . #5 cardiac pacemaker #6 coronary artery disease status post stent placement #7 anemia #8 history of breast cancer #9 history of colon cancer status post resection. Problems: Consultation Date/Type/Reason Admit Date/Time Dec 16, 2016 at 21:30 Type of Consultation: renal Referring Provider: ZHOU VALDEZ MD 24 HR Interval Summary Free Text/Dictation She is up walking with PT and doing well . Constitutional: improved, no complaints Exam/Review of Systems Vital Signs Vitals Vital Signs Date Time Temp Pulse Resp B/P Pulse Ox O2 Delivery O2 Flow Rate FiO2 12/20/16 07:30 97.9 68 18 126/75 95 Intake and Output 12/19/16 12/19/16 12/20/16 15:00 23:00 07:00 Intake Total 820 ml 300 ml Output Total 1 ml 600 ml Balance 819 ml -300 ml Exam Constitutional: alert, obese, oriented, well developed Psych: nl mood/affect, no complaints Respiratory: clear to auscultation, normal air movement Cardiovascular: regular rate and rhythm Musculoskeletal: nl extremities to inspection Results Result Diagram: 12/17/16 1159 12/17/16 1115 Results 24 hrs Laboratory Tests Test 12/19/16 12:13 12/19/16 17:28 12/19/16 20:53 12/20/16 06:50 Bedside Glucose 123 112 155 INR International Normalized Ratio 2.77 Prothrombin Time 29.6 #H Prothrombin Time Ratio 2.3 Test 12/20/16 07:30 Bedside Glucose 153 Medications Medications Current Medications Acetaminophen (Tylenol Tab) 650 mg Q6H PRN PO PAIN LEVEL 1-3 OR FEVER; Start at 22:11 Amiodarone HCl (Cordarone) 200 mg DAILY PO Last administered on 12/20/16 08:12 ; Admin Dose 200 MG; Start 12/16/16 at 22:11 Glucose (Glutose) 15 gm Q15M PRN PO DECREASED GLUCOSE; Start 12/16/16 at 22:11 Glucose (Glutose) 22.5 gm Q15M PRN PO DECREASED GLUCOSE; Start 12/16/16 at 22:11 Dextrose (D50w Syringe) 25 ml Q15M PRN IV DECREASED GLUCOSE; Start 12/16/16 at 22:11 Dextrose (D50w Syringe) 50 ml Q15M PRN IV DECREASED GLUCOSE; Start 12/16/16 at 22:11 Glucagon (Glucagen) 1 mg Q15M PRN IM DECREASED GLUCOSE; Start 12/16/16 at 22:11 Glucose (Glutose) 15 gm Q15M PRN BUCCAL DECREASED GLUCOSE; Start 12/16/16 at 22: 11 Atorvastatin Calcium (Lipitor) 80 mg HS PO Last administered on 12/19/16 21:47 ; Admin Dose 80 MG; Start 12/16/16 at 22:11 Furosemide (Lasix) 20 mg DAILY PO Last administered on 12/20/16 08:12; Admin Dose 20 MG; Start 12/18/16 at 09:00 Linagliptin (Tradjenta) 5 mg DAILY PO Last administered on 12/20/16 08:12; Admin Dose 5 MG; Start 12/18/16 at 11:30 Insulin Glargine (Lantus) 20 unit DAILY@20 SC Last administered on 12/19/16 21: 48; Admin Dose 20 UNIT; Start 12/18/16 at 20:00 Betamethasone/ Clotrimazole (Lotrisone Cr) 1 applic BID PRN TOP ITCHING; Start 12/19/16 at 14:00 Warfarin Sodium (Coumadin) 4 mg DAILY@17 PO ; Start 12/20/16 at 17:00 ZHOU VALDEZ MD Dec 20, 2016 09:37
--- NOTE | 2016-12-20 12:07 | CONS ---
Date/Time of Note Date/Time of Note DATE: 12/20/16 TIME: 12:06 Consult Date/Type/Reason Admit Date/Time Dec 16, 2016 at 21:30 Type of Consultation: renal Ordering Provider: ZHOU VALDEZ MD Subjective Comfortable Objective pulm-cta min assist ambulation Vital Signs Date Time Temp Pulse Resp B/P Pulse Ox O2 Delivery O2 Flow Rate FiO2 12/20/16 07:30 97.9 68 18 126/75 95 Intake and Output 12/19/16 12/19/16 12/20/16 15:00 23:00 07:00 Intake Total 820 ml 300 ml Output Total 1 ml 600 ml Balance 819 ml -300 ml Results/Medications Result Diagram: 12/17/16 1159 12/17/16 1115 Results 24 hrs Laboratory Tests Test 12/19/16 12:13 12/19/16 17:28 12/19/16 20:53 12/20/16 06:50 Bedside Glucose 123 112 155 INR International Normalized Ratio 2.77 Prothrombin Time 29.6 #H Prothrombin Time Ratio 2.3 Test 12/20/16 07:30 Bedside Glucose 153 Medications Current Medications Acetaminophen (Tylenol Tab) 650 mg Q6H PRN PO PAIN LEVEL 1-3 OR FEVER; Start at 22:11 Amiodarone HCl (Cordarone) 200 mg DAILY PO Last administered on 12/20/16 08:12 ; Admin Dose 200 MG; Start 12/16/16 at 22:11 Glucose (Glutose) 15 gm Q15M PRN PO DECREASED GLUCOSE; Start 12/16/16 at 22:11 Glucose (Glutose) 22.5 gm Q15M PRN PO DECREASED GLUCOSE; Start 12/16/16 at 22:11 Dextrose (D50w Syringe) 25 ml Q15M PRN IV DECREASED GLUCOSE; Start 12/16/16 at 22:11 Dextrose (D50w Syringe) 50 ml Q15M PRN IV DECREASED GLUCOSE; Start 12/16/16 at 22:11 Glucagon (Glucagen) 1 mg Q15M PRN IM DECREASED GLUCOSE; Start 12/16/16 at 22:11 Glucose (Glutose) 15 gm Q15M PRN BUCCAL DECREASED GLUCOSE; Start 12/16/16 at 22: 11 Atorvastatin Calcium (Lipitor) 80 mg HS PO Last administered on 12/19/16 21:47 ; Admin Dose 80 MG; Start 12/16/16 at 22:11 Furosemide (Lasix) 20 mg DAILY PO Last administered on 12/20/16 08:12; Admin Dose 20 MG; Start 12/18/16 at 09:00 Linagliptin (Tradjenta) 5 mg DAILY PO Last administered on 12/20/16 08:12; Admin Dose 5 MG; Start 12/18/16 at 11:30 Insulin Glargine (Lantus) 20 unit DAILY@20 SC Last administered on 12/19/16 21: 48; Admin Dose 20 UNIT; Start 12/18/16 at 20:00 Betamethasone/ Clotrimazole (Lotrisone Cr) 1 applic BID PRN TOP ITCHING; Start 12/19/16 at 14:00 Warfarin Sodium (Coumadin) 4 mg DAILY@17 PO ; Start 12/20/16 at 17:00 Assessment/Plan Additional Assessment/Plan Rehab-Infarct/CVA. Continue rehab program Atrial fibrillation. Hypertension. Coronary artery disease. Diabetes mellitus. Gastroesophageal reflux disease. Hyperlipidemia. Chronic kidney disease. Peripheral neuropathy. Anemia History of colon carcinoma and resection. History of left lower lobe pneumonia. History of pacemaker placement. History of asthma. SOPHIE HALL MD Dec 20, 2016 12:06
[2016-12-20] MEDS: WARFARIN 2 MG TAB PO SCH (17:25)
--- NOTE | 2016-12-20 17:29 | CONS ---
Date/Time of Note Date/Time of Note DATE: 12/20/16 TIME: 17:27 Assessment/Plan Assessment/Plan Problems: (1) Type 2 diabetes mellitus without complications Status: Chronic Comment: BG values continue to be excellent. Cont. current insulin doses. Qualifiers: Diabetes mellitus long term care administrator insulin use: with long term care administrator use Qualified Code : E11.9 - Type 2 diabetes mellitus without complication, with long-term current use of insulin Consultation Date/Type/Reason Admit Date/Time Dec 16, 2016 at 21:30 Initial Consult Date 12/18/16 Type of Consultation: Endocrinology Reason for Consultation T2DM management Referring Provider: ZHOU VALDEZ MD 24 HR Interval Summary Constitutional: improved, no complaints Detailed Summary Respiratory: no complaints Cardiovascular: no complaints Gastrointestinal: no complaints Genitourinary: no complaints Musculoskeletal: no complaints Neurologic: no complaints Exam/Review of Systems Vital Signs Vitals VS - Last 72 Hours, by Label Date Time Temp Pulse Resp B/P Pulse Ox O2 Delivery O2 Flow Rate FiO2 12/20/16 07:30 97.9 68 18 126/75 95 12/19/16 20:56 98.5 69 19 120/67 91 12/19/16 07:30 97.8 18 140/66 95 12/18/16 20:29 98.5 64 18 112/55 96 12/18/16 07:30 98.4 67 18 124/98 96 12/17/16 19:46 98.2 68 20 134/62 95 Vital Signs Date Time Temp Pulse Resp B/P Pulse Ox O2 Delivery O2 Flow Rate FiO2 12/20/16 07:30 97.9 68 18 126/75 95 Intake and Output 12/19/16 12/19/16 12/20/16 15:00 23:00 07:00 Intake Total 820 ml 300 ml Output Total 1 ml 600 ml Balance 819 ml -300 ml Exam Constitutional: alert, obese, oriented Psych: nl mood/affect, no complaints Respiratory: clear to auscultation, normal air movement Cardiovascular: nl pulses, regular rate and rhythm, No edema, No murmurs/extra sounds, No rub Gastrointestinal: bowel sounds, nl liver, spleen, non-tender, soft, No mass, No rebound or guarding Musculoskeletal: nl extremities to inspection Extremities: normal pulses Neurological: COURT CRIER II-XII intact, nl mental status, nl speech, nl strength Additional Comments Bedside Glucose - 72 Hours Test 12/17/16 20:23 12/18/16 07:43 12/18/16 11:52 12/18/16 17:00 Bedside Glucose 245mg/dL (70-220) H 190mg/dL (70-220) 176mg/dL (70-220) 119mg/dL (70-220) Test 12/18/16 20:17 12/19/16 07:27 12/19/16 12:13 12/19/16 17:28 Bedside Glucose 147mg/dL (70-220) 135mg/dL (70-220) 123mg/dL (70-220) 112mg/dL (70-220) Test 12/19/16 20:53 12/20/16 07:30 12/20/16 12:12 12/20/16 16:56 Bedside Glucose 155mg/dL (70-220) 153mg/dL (70-220) 137mg/dL (70-220) 92mg/dL (70-220) Results Result Diagram: 12/17/16 1159 12/17/16 1115 Results 24 hrs Laboratory Tests Test 12/19/16 17:28 12/19/16 20:53 12/20/16 06:50 12/20/16 07:30 Bedside Glucose 112 155 153 INR International Normalized Ratio 2.77 Prothrombin Time 29.6 #H Prothrombin Time Ratio 2.3 Test 12/20/16 12:12 12/20/16 16:56 Bedside Glucose 137 92 Medications Medications Current Medications Acetaminophen (Tylenol Tab) 650 mg Q6H PRN PO PAIN LEVEL 1-3 OR FEVER; Start at 22:11 Amiodarone HCl (Cordarone) 200 mg DAILY PO Last administered on 12/20/16t 08:12 ; Admin Dose 200 MG; Start 12/16/16 at 22:11 Glucose (Glutose) 15 gm Q15M PRN PO DECREASED GLUCOSE; Start 12/16/16 at 22:11 Glucose (Glutose) 22.5 gm Q15M PRN PO DECREASED GLUCOSE; Start 12/16/16 at 22:11 Dextrose (D50w Syringe) 25 ml Q15M PRN IV DECREASED GLUCOSE; Start 12/16/16 at 22:11 Dextrose (D50w Syringe) 50 ml Q15M PRN IV DECREASED GLUCOSE; Start 12/16/16 at 22:11 Glucagon (Glucagen) 1 mg Q15M PRN IM DECREASED GLUCOSE; Start 12/16/16 at 22:11 Glucose (Glutose) 15 gm Q15M PRN BUCCAL DECREASED GLUCOSE; Start 12/16/16 at 22: 11 Atorvastatin Calcium (Lipitor) 80 mg HS PO Last administered on 12/19/16 21:47 ; Admin Dose 80 MG; Start 12/16/16 at 22:11 Furosemide (Lasix) 20 mg DAILY PO Last administered on 12/20/16 08:12; Admin Dose 20 MG; Start 12/18/16 at 09:00 Linagliptin (Tradjenta) 5 mg DAILY PO Last administered on 12/20/16 08:12; Admin Dose 5 MG; Start 12/18/16 at 11:30 Insulin Glargine (Lantus) 20 unit DAILY@20 SC Last administered on 12/19/16 21: 48; Admin Dose 20 UNIT; Start 12/18/16 at 20:00 Betamethasone/ Clotrimazole (Lotrisone Cr) 1 applic BID PRN TOP ITCHING; Start 12/19/16 at 14:00 Warfarin Sodium (Coumadin) 4 mg DAILY@17 PO ; Start 12/20/16 at 17:00 LANDY SINGH MD Dec 20, 2016 17:29
[2016-12-20] MEDS: ATORVASTATIN 80 MG TAB PO SCH (20:19)
[2016-12-20] MEDS: INSULIN GLARGINE [LANtus] 3 ML PEN SC SCH (20:20)
[2016-12-20 20:36] VITALS: BP 119/59; RESP 18
[2016-12-21 07:16] LABS: INR 3.2; PROTIME 33.2 Sec (12.2-14.2); PT RATIO 2.6
[2016-12-21] MEDS: INSULIN ASPART [NOVOLOG] 3 ML PEN SC SCH ×7 (07:35→21:02)
[2016-12-21 08:00] VITALS: BP 131/60; PULSE 83; RESP 18
[2016-12-21] MEDS: FUROSEMIDE 20 MG TAB PO SCH (08:40)
[2016-12-21] MEDS: LINAGLIPTIN 5 MG TABLET PO SCH (08:40)
[2016-12-21] MEDS: AMIODARONE 200 MG TAB PO SCH (08:41)
--- NOTE | 2016-12-21 11:35 | PN ---
Date/Time of Note Date/Time of Note DATE: 12/21/16 TIME: 11:25 Assessment/Plan VTE Prophylaxis VTE Prophylaxis Intervention: other (coumadin) Lines/Catheters IV Catheter Type (from Nrs): Saline Lock Urinary Cath still in place: No Assessment/Plan Assessment/Plan 1. Clinically presumed CVA with impaired mobility/gait/ADLs/cognition and aphasia. Continue PT/OT/ST. SBA for bed mobility and transfers. Secondary stroke prevention per internal medicine and neurology. 2. History of Atrial fibrillation. Continue medical management. On anticoagulation with coumadin, dosing per internal medicine. 3. History of pacemaker placement. 4. Hypertension. BP controlled. 5. Coronary artery disease. Continue medical management. 6. Diabetes mellitus. Monitor blood sugars, endocrinology following and medically managing. 7. Hyperlipidemia. Continue statin. 8. Chronic kidney disease. Monitor renal function, avoid nephrotoxic agents. 9. Anemia. Monitor hemoglobin/hematocrit. 10. History of colon cancer s/p resection. 11. History of asthma. Continue breathing treatments as needed. Subjective 24 Hr Interval Summary Free Text/Dictation Rehab progress note Subjective: Denies any new complaints. No acute overnight events per nursing staff. ROS: Denies headache, no dizziness, no shortness of breath, no chest pain, no nausea, no vomiting, no abdominal pain. Has generalized itching. Exam/Review of Systems Vital Signs Vitals Vital Signs Date Time Temp Pulse Resp B/P Pulse Ox O2 Delivery O2 Flow Rate FiO2 12/21/16 08:00 98.3 83 18 131/60 12/20/16 20:36 97 Intake and Output 12/20/16 12/20/16 12/21/16 15:00 23:00 07:00 Intake Total 1220 ml 840 ml 400 ml Balance 1220 ml 840 ml 400 ml Exam General: Awake, alert, no acute distress CV: Regular rate, s1s2 Lungs: Symmetrical air entry bilaterally, no wheezing Abdomen soft, nontender Extremities without cyanosis, no new swelling Neuro: Follows simple commands. Antigravity strength present UE/LE. Results Result Diagram: 12/17/16 1159 12/17/16 1115 Results 24 hrs Laboratory Tests Test 12/20/16 12:12 12/20/16 16:56 12/20/16 20:18 12/21/16 06:22 Bedside Glucose 137 92 137 INR International Normalized Ratio 3.20 Prothrombin Time 33.2 H Prothrombin Time Ratio 2.6 Test 12/21/16 07:45 Bedside Glucose 131 Medications Medications Current Medications Acetaminophen (Tylenol Tab) 650 mg Q6H PRN PO PAIN LEVEL 1-3 OR FEVER; Start at 22:11 Amiodarone HCl (Cordarone) 200 mg DAILY PO Last administered on 12/21/16 08:41 ; Admin Dose 200 MG; Start 12/16/16 at 22:11 Glucose (Glutose) 15 gm Q15M PRN PO DECREASED GLUCOSE; Start 12/16/16 at 22:11 Glucose (Glutose) 22.5 gm Q15M PRN PO DECREASED GLUCOSE; Start 12/16/16 at 22:11 Dextrose (D50w Syringe) 25 ml Q15M PRN IV DECREASED GLUCOSE; Start 12/16/16 at 22:11 Dextrose (D50w Syringe) 50 ml Q15M PRN IV DECREASED GLUCOSE; Start 12/16/16 at 22:11 Glucagon (Glucagen) 1 mg Q15M PRN IM DECREASED GLUCOSE; Start 12/16/16 at 22:11 Glucose (Glutose) 15 gm Q15M PRN BUCCAL DECREASED GLUCOSE; Start 12/16/16 at 22: 11 Atorvastatin Calcium (Lipitor) 80 mg HS PO Last administered on 12/20/16 20:19 ; Admin Dose 80 MG; Start 12/16/16 at 22:11 Furosemide (Lasix) 20 mg DAILY PO Last administered on 12/21/16 08:40; Admin Dose 20 MG; Start 12/18/16 at 09:00 Linagliptin (Tradjenta) 5 mg DAILY PO Last administered on 12/21/16 08:40; Admin Dose 5 MG; Start 12/18/16 at 11:30 Insulin Glargine (Lantus) 20 unit DAILY@20 SC Last administered on 12/20/16 20 :20; Admin Dose 20 UNIT; Start 12/18/16 at 20:00 Betamethasone/ Clotrimazole (Lotrisone Cr) 1 applic BID PRN TOP ITCHING; Start 12/19/16 at 14:00 Warfarin Sodium (Coumadin) 4 mg DAILY@17 PO Last administered on 12/20/16 17: 25; Admin Dose 4 MG; Start 12/20/16 at 17:00 MISTY RUBIO 11, 2017 11:35
[2016-12-21 19:37] VITALS: BP 121/59; RESP 20
[2016-12-21] MEDS: ATORVASTATIN 80 MG TAB PO SCH (20:52)
[2016-12-21] MEDS: INSULIN GLARGINE [LANtus] 3 ML PEN SC SCH (21:01)
[2016-12-22 07:15] VITALS: BP 123/56; RESP 19
[2016-12-22] MEDS: INSULIN ASPART [NOVOLOG] 3 ML PEN SC SCH ×7 (07:35→20:09)
[2016-12-22] MEDS: AMIODARONE 200 MG TAB PO SCH (08:01)
[2016-12-22] MEDS: LINAGLIPTIN 5 MG TABLET PO SCH (08:01)
[2016-12-22] MEDS: FUROSEMIDE 20 MG TAB PO SCH (08:02)
--- NOTE | 2016-12-22 09:05 | CONS ---
Date/Time of Note Date/Time of Note DATE: 12/22/16 TIME: 09:03 Assessment/Plan Assessment/Plan Problems: (1) Atrial fibrillation Status: Chronic Comment: This is being managed by Dr. Valdez; at this time her INRs are drifting upward she will be rechecked in the morning. Qualifiers: Atrial fibrillation type: chronic Qualified Code: I48.2 - Chronic atrial fibrillation (2) Type 2 diabetes mellitus without complications Status: Chronic Comment: Adequate control on current regimen Qualifiers: Diabetes mellitus detention insulin use: with extermination inspector use Qualified Code : E11.9 - Type 2 diabetes mellitus without complication, with long-term current use of insulin Consultation Date/Type/Reason Admit Date/Time Dec 16, 2016 at 21:30 Initial Consult Date 12/18/16 Type of Consultation: Endocrinology Referring Provider: ZHOU VALDEZ MD 24 HR Interval Summary Free Text/Dictation No clinical changes. Exam/Review of Systems Vital Signs Vitals Vital Signs Date Time Temp Pulse Resp B/P Pulse Ox O2 Delivery O2 Flow Rate FiO2 12/22/16 07:15 98.6 19 123/56 95 12/21/16 19:37 69 Intake and Output 12/21/16 12/21/16 12/22/16 15:00 23:00 07:00 Intake Total 1250 ml Output Total 200 ml Balance 1250 ml -200 ml Exam Neck: non-tender, supple Respiratory: clear to auscultation, normal air movement Cardiovascular: irregular rhythm, nl pulses Results Results 24 hrs Laboratory Tests Test 12/21/16 12:02 12/21/16 14:13 12/21/16 14:35 12/21/16 17:21 Bedside Glucose 151 69 L 96 125 Test 12/21/16 20:23 12/22/16 02:03 12/22/16 07:28 Bedside Glucose 202 103 131 Medications Medications Current Medications Acetaminophen (Tylenol Tab) 650 mg Q6H PRN PO PAIN LEVEL 1-3 OR FEVER; Start at 22:11 Amiodarone HCl (Cordarone) 200 mg DAILY PO Last administered on 12/22/16t 08:01 ; Admin Dose 200 MG; Start 12/16/16 at 22:11 Glucose (Glutose) 15 gm Q15M PRN PO DECREASED GLUCOSE; Start 12/16/16 at 22:11 Glucose (Glutose) 22.5 gm Q15M PRN PO DECREASED GLUCOSE; Start 12/16/16 at 22:11 Dextrose (D50w Syringe) 25 ml Q15M PRN IV DECREASED GLUCOSE; Start 12/16/16 at 22:11 Dextrose (D50w Syringe) 50 ml Q15M PRN IV DECREASED GLUCOSE; Start 12/16/16 at 22:11 Glucagon (Glucagen) 1 mg Q15M PRN IM DECREASED GLUCOSE; Start 12/16/16 at 22:11 Glucose (Glutose) 15 gm Q15M PRN BUCCAL DECREASED GLUCOSE; Start 12/16/16 at 22: 11 Atorvastatin Calcium (Lipitor) 80 mg HS PO Last administered on 12/21/16 20:52 ; Admin Dose 80 MG; Start 12/16/16 at 22:11 Furosemide (Lasix) 20 mg DAILY PO Last administered on 12/22/16 08:02; Admin Dose 20 MG; Start 12/18/16 at 09:00 Linagliptin (Tradjenta) 5 mg DAILY PO Last administered on 12/22/16 08:01; Admin Dose 5 MG; Start 12/18/16 at 11:30 Betamethasone/ Clotrimazole (Lotrisone Cr) 1 applic BID PRN TOP ITCHING; Start 12/19/16 at 14:00 Warfarin Sodium (Coumadin) 4 mg DAILY@17 PO Last administered on 12/20/16 17: 25; Admin Dose 4 MG; Start 12/20/16 at 17:00; Status Future hold Insulin Glargine (Lantus) 15 unit DAILY@20 SC Last administered on 12/21/16 21 :01; Admin Dose 15 UNIT; Start 12/21/16 at 20:00 MARIA R FRANCIS MD Dec 22, 2016 09:04
[2016-12-22 09:56] LABS: INR 2.59; PROTIME 28.1 Sec (12.2-14.2); PT RATIO 2.2
--- NOTE | 2016-12-22 12:48 | PN ---
Date/Time of Note Date/Time of Note DATE: 12/22/16 TIME: 12:43 Assessment/Plan VTE Prophylaxis VTE Prophylaxis Intervention: other (coumadin) Lines/Catheters IV Catheter Type (from Nrs): [facility] Urinary Cath still in place: No Assessment/Plan Assessment/Plan 1. CVA with impaired mobility/gait/ADLs/cognition and aphasia. Continue PT/OT/ ST. Supervision for upper body dressing, min assist for lower body dressing. Continue secondary stroke prevention per internal medicine and neurology. 2. History of Atrial fibrillation. Internal medicine medically managing. Anticoagulation per internal medicine. 3. History of pacemaker placement. 4. Hypertension. BP controlled. Continue to monitor. 5. Coronary artery disease. Continue medical management. 6. Diabetes mellitus. Endocrinology medically managing and adjusting regimen. Continue to monitor blood sugars. 7. Hyperlipidemia. Continue statin. 8. Chronic kidney disease. Monitor renal function. Avoid nephrotoxic agents. 9. Anemia. Monitor hemoglobin/hematocrit. 10. History of colon CA status post resection. 11. History of asthma. Stable. Continue breathing treatments as needed. Subjective 24 Hr Interval Summary Free Text/Dictation Rehab progress note Subjective: Reports itching improved. No new complaints. No acute overnight events per nursing staff. ROS: Denies headache, no dizziness, no abdominal pain, no nausea, no constipation, no chills, no chest pain, no shortness of breath. Exam/Review of Systems Vital Signs Vitals Vital Signs Date Time Temp Pulse Resp B/P Pulse Ox O2 Delivery O2 Flow Rate FiO2 12/22/16 07:15 98.6 19 123/56 95 12/21/16 19:37 69 Intake and Output 12/21/16 12/21/16 12/22/16 15:00 23:00 07:00 Intake Total 1250 ml Output Total 200 ml Balance 1250 ml -200 ml Exam General: Awake, alert, no acute distress CV: Regular rate, audible s1s2 Lungs: Clear to auscultation, no crackles, no wheezing Abdomen soft, nontender, +bowel sounds Extremities: No cyanosis. No new swelling. Neuro: No new focal changes. Follows simple commands. Results Results 24 hrs Laboratory Tests Test 12/21/16 14:13 12/21/16 14:35 12/21/16 17:21 12/21/16 20:23 Bedside Glucose 69 L 96 125 202 Test 12/22/16 02:03 12/22/16 07:28 12/22/16 09:25 12/22/16 12:15 Bedside Glucose 103 131 149 INR International Normalized Ratio 2.59 Prothrombin Time 28.1 H Prothrombin Time Ratio 2.2 Medications Medications Current Medications Acetaminophen (Tylenol Tab) 650 mg Q6H PRN PO PAIN LEVEL 1-3 OR FEVER; Start at 22:11 Amiodarone HCl (Cordarone) 200 mg DAILY PO Last administered on 12/22/16 08:01 ; Admin Dose 200 MG; Start 12/16/16 at 22:11 Glucose (Glutose) 15 gm Q15M PRN PO DECREASED GLUCOSE; Start 12/16/16 at 22:11 Glucose (Glutose) 22.5 gm Q15M PRN PO DECREASED GLUCOSE; Start 12/16/16 at 22:11 Dextrose (D50w Syringe) 25 ml Q15M PRN IV DECREASED GLUCOSE; Start 12/16/16 at 22:11 Dextrose (D50w Syringe) 50 ml Q15M PRN IV DECREASED GLUCOSE; Start 12/16/16 at 22:11 Glucagon (Glucagen) 1 mg Q15M PRN IM DECREASED GLUCOSE; Start 12/16/16 at 22:11 Glucose (Glutose) 15 gm Q15M PRN BUCCAL DECREASED GLUCOSE; Start 12/16/16 at 22: 11 Atorvastatin Calcium (Lipitor) 80 mg HS PO Last administered on 12/21/16 20:52 ; Admin Dose 80 MG; Start 12/16/16 at 22:11 Furosemide (Lasix) 20 mg DAILY PO Last administered on 12/22/16 08:02; Admin Dose 20 MG; Start 12/18/16 at 09:00 Linagliptin (Tradjenta) 5 mg DAILY PO Last administered on 12/22/16 08:01; Admin Dose 5 MG; Start 12/18/16 at 11:30 Betamethasone/ Clotrimazole (Lotrisone Cr) 1 applic BID PRN TOP ITCHING; Start 12/19/16 at 14:00 Warfarin Sodium (Coumadin) 4 mg DAILY@17 PO Last administered on 12/20/16 17: 25; Admin Dose 4 MG; Start 12/20/16 at 17:00; Status Future hold Insulin Glargine (Lantus) 15 unit DAILY@20 SC Last administered on 12/21/16t 21 :01; Admin Dose 15 UNIT; Start 12/21/16 at 20:00 MISTY RUBIO Dec 22, 2016 12:47 MISTY RUBIO Dec 22, 2016 12:47
[2016-12-22] MEDS: WARFARIN 2 MG TAB PO SCH (17:19)
[2016-12-22] MEDS: INSULIN GLARGINE [LANtus] 3 ML PEN SC SCH (20:07)
[2016-12-22 20:09] VITALS: BP 140/66; PULSE 63; RESP 18
[2016-12-22] MEDS: ATORVASTATIN 80 MG TAB PO SCH (20:09)
--- NOTE | 2016-12-22 20:47 | CONS ---
Date/Time of Note Date/Time of Note DATE: 12/22/16 TIME: 20:42 Assessment/Plan Assessment/Plan Additional Assessment/Plan #1 cerebrovascular accident versus transient ischemic attack with altered mental status, altered speech pattern, facial twitching. All of these symptoms have improved. She is overall doing much better. Her speech is more fluent and the facial twitching has decreased significantly. she is up walking with PT and doing well . The patient is here for the comprehensive rehabilitation program. -continue rehab, generalized weakness #2 history of atrial fibrillation on Coumadin and Lovenox now . Her INR is in therapeutic range . Will D/C Lovenox . She was previously on Xarelto. She was found to have moderate mitral stenosis and switched to Coumadin by the mold maker. -INR elevation 3.2, held coumadin, recheck in AM #3 hypertension blood pressure is controlled -stable #4 type 2 diabetes mellitus, her blood sugars have been high. I will increase her Lantus insulin to 20 units a day and call her estate manager to see her.Dr Lentz is seeing her . -good control #5 cardiac pacemaker -stable #6 coronary artery disease status post stent placement -stable, no active chest pain #7 anemia -stable, monitor #8 history of breast cancer -chronic, monitor, stable #9 history of colon cancer status post resection. -chronic, monitor, stable #CODE: FULL Problems: Consultation Date/Type/Reason Admit Date/Time Dec 16, 2016 at 21:30 Initial Consult Date 12/21/16 Type of Consultation: General Medicine Reason for Consultation Medicine follow up: monitoring coumadin level Referring Provider: ZHOU VALDEZ MD 24 HR Interval Summary Free Text/Dictation No active issues, working with rehab, nonfocal weakness - generalized Constitutional: improved, no complaints Exam/Review of Systems Vital Signs Vitals Vital Signs Date Time Temp Pulse Resp B/P Pulse Ox O2 Delivery O2 Flow Rate FiO2 12/22/16 20:09 98.8 63 18 140/66 97 Room Air Intake and Output 12/21/16 12/21/16 12/22/16 15:00 23:00 07:00 Intake Total 1250 ml Output Total 200 ml Balance 1250 ml -200 ml Exam Constitutional: alert, oriented Head: atraumatic, normocephalic Neck: non-tender, supple Respiratory: clear to auscultation, normal air movement Cardiovascular: nl pulses, regular rate and rhythm Gastrointestinal: nl liver, spleen, soft Genitourinary - Female: nl adnexae Musculoskeletal: nl extremities to inspection Extremities: normal pulses Results Results 24 hrs Laboratory Tests Test 12/22/16 02:03 12/22/16 07:28 12/22/16 09:25 12/22/16 12:15 Bedside Glucose 103 131 149 INR International Normalized Ratio 2.59 Prothrombin Time 28.1 H Prothrombin Time Ratio 2.2 Test 12/22/16 17:13 12/22/16 20:05 Bedside Glucose 118 146 Medications Medications Current Medications Acetaminophen (Tylenol Tab) 650 mg Q6H PRN PO PAIN LEVEL 1-3 OR FEVER; Start at 22:11 Amiodarone HCl (Cordarone) 200 mg DAILY PO Last administered on 12/22/16 08:01 ; Admin Dose 200 MG; Start 12/16/16 at 22:11 Glucose (Glutose) 15 gm Q15M PRN PO DECREASED GLUCOSE; Start 12/16/16 at 22:11 Glucose (Glutose) 22.5 gm Q15M PRN PO DECREASED GLUCOSE; Start 12/16/16 at 22:11 Dextrose (D50w Syringe) 25 ml Q15M PRN IV DECREASED GLUCOSE; Start 12/16/16 at 22:11 Dextrose (D50w Syringe) 50 ml Q15M PRN IV DECREASED GLUCOSE; Start 12/16/16 at 22:11 Glucagon (Glucagen) 1 mg Q15M PRN IM DECREASED GLUCOSE; Start 12/16/16 at 22:11 Glucose (Glutose) 15 gm Q15M PRN BUCCAL DECREASED GLUCOSE; Start 12/16/16 at 22: 11 Atorvastatin Calcium (Lipitor) 80 mg HS PO Last administered on 12/22/16 20:09 ; Admin Dose 80 MG; Start 12/16/16 at 22:11 Furosemide (Lasix) 20 mg DAILY PO Last administered on 12/22/16 08:02; Admin Dose 20 MG; Start 12/18/16 at 09:00 Linagliptin (Tradjenta) 5 mg DAILY PO Last administered on 12/22/16 08:01; Admin Dose 5 MG; Start 12/18/16 at 11:30 Betamethasone/ Clotrimazole (Lotrisone Cr) 1 applic BID PRN TOP ITCHING; Start 12/19/16 at 14:00 Warfarin Sodium (Coumadin) 4 mg DAILY@17 PO Last administered on 12/22/16 17: 19; Admin Dose 4 MG; Start 12/20/16 at 17:00; Status Future hold Insulin Glargine (Lantus) 15 unit DAILY@20 SC Last administered on 12/22/16 20 :07; Admin Dose 15 UNIT; Start 12/21/16 at 20:00 JANAY DONNELLY MD Dec 22, 2016 20:47
[2016-12-22] MEDS ORDERED: WARFARIN 3 MG TAB PO SCH (21:00)
--- NOTE | 2016-12-22 21:08 | CONS ---
Date/Time of Note Date/Time of Note DATE: 12/22/16 TIME: 20:47 Assessment/Plan Assessment/Plan Additional Assessment/Plan #0 Groin rash: likely moisture and fungal, will provide antifungal cream, does have history of allergy -zytrec 10mg po qday -nystatin cream to intertriginous areas qday #1 cerebrovascular accident versus transient ischemic attack with altered mental status, altered speech pattern, facial twitching. All of these symptoms have improved. She is overall doing much better. Her speech is more fluent and the facial twitching has decreased significantly. she is up walking with PT and doing well . The patient is here for the comprehensive rehabilitation program. -continue rehab, generalized weakness #2 history of atrial fibrillation on Coumadin and Lovenox now . Her INR is in therapeutic range . Will D/C Lovenox . She was previously on Xarelto. She was found to have moderate mitral stenosis and switched to Coumadin by the funeral home makeup artist. -INR elevation 2.56 held coumadin, recheck in AM, will restart coumadin 3mg po qday #3 hypertension blood pressure is controlled -stable #4 type 2 diabetes mellitus, her blood sugars have been high. I will increase her Lantus insulin to 20 units a day and call her production potter to see her.Dr Lentz is seeing her . -good control #5 cardiac pacemaker -stable #6 coronary artery disease status post stent placement -stable, no active chest pain #7 anemia -stable, monitor #8 history of breast cancer -chronic, monitor, stable #9 history of colon cancer status post resection. -chronic, monitor, stable #CODE: FULL Dr. Resendez to return 12/23/16 Consultation Date/Type/Reason Admit Date/Time Dec 16, 2016 at 21:30 Initial Consult Date 12/18/16 Type of Consultation: General Medicine Referring Provider: ZHOU VALDEZ MD 24 HR Interval Summary Constitutional: improved, no complaints Exam/Review of Systems Vital Signs Vitals Vital Signs Date Time Temp Pulse Resp B/P Pulse Ox O2 Delivery O2 Flow Rate FiO2 12/22/16 20:09 98.8 63 18 140/66 97 Room Air Intake and Output 12/21/16 12/21/16 12/22/16 15:00 23:00 07:00 Intake Total 1250 ml Output Total 200 ml Balance 1250 ml -200 ml Exam Constitutional: alert, oriented Psych: no complaints Head: atraumatic, normocephalic ENMT: nl external ears & nose Respiratory: clear to auscultation, normal air movement Cardiovascular: regular rate and rhythm Gastrointestinal: non-tender, soft Neurological: nl mental status Results Results 24 hrs Laboratory Tests Test 12/22/16 02:03 12/22/16 07:28 12/22/16 09:25 12/22/16 12:15 Bedside Glucose 103 131 149 INR International Normalized Ratio 2.59 Prothrombin Time 28.1 H Prothrombin Time Ratio 2.2 Test 12/22/16 17:13 12/22/16 20:05 Bedside Glucose 118 146 Medications Medications Current Medications Acetaminophen (Tylenol Tab) 650 mg Q6H PRN PO PAIN LEVEL 1-3 OR FEVER; Start at 22:11 Amiodarone HCl (Cordarone) 200 mg DAILY PO Last administered on 12/22/16 08:01 ; Admin Dose 200 MG; Start 12/16/16 at 22:11 Glucose (Glutose) 15 gm Q15M PRN PO DECREASED GLUCOSE; Start 12/16/16 at 22:11 Glucose (Glutose) 22.5 gm Q15M PRN PO DECREASED GLUCOSE; Start 12/16/16 at 22:11 Dextrose (D50w Syringe) 25 ml Q15M PRN IV DECREASED GLUCOSE; Start 12/16/16 at 22:11 Dextrose (D50w Syringe) 50 ml Q15M PRN IV DECREASED GLUCOSE; Start 12/16/16 at 22:11 Glucagon (Glucagen) 1 mg Q15M PRN IM DECREASED GLUCOSE; Start 12/16/16 at 22:11 Glucose (Glutose) 15 gm Q15M PRN BUCCAL DECREASED GLUCOSE; Start 12/16/16 at 22: 11 Atorvastatin Calcium (Lipitor) 80 mg HS PO Last administered on 12/22/16 20:09 ; Admin Dose 80 MG; Start 12/16/16 at 22:11 Furosemide (Lasix) 20 mg DAILY PO Last administered on 12/22/16 08:02; Admin Dose 20 MG; Start 12/18/16 at 09:00 Linagliptin (Tradjenta) 5 mg DAILY PO Last administered on 12/22/16 08:01; Admin Dose 5 MG; Start 12/18/16 at 11:30 Betamethasone/ Clotrimazole (Lotrisone Cr) 1 applic BID PRN TOP ITCHING; Start 12/19/16 at 14:00 Warfarin Sodium (Coumadin) 4 mg DAILY@17 PO Last administered on 12/22/16 17: 19; Admin Dose 4 MG; Start 12/20/16 at 17:00; Status Future hold Insulin Glargine (Lantus) 15 unit DAILY@20 SC Last administered on 12/22/16 20 :07; Admin Dose 15 UNIT; Start 12/21/16 at 20:00 JANAY DONNELLY MD Dec 22, 2016 21:08
[2016-12-22] MEDS ORDERED: NYSTATIN 15 GM OINT TOP PRN (21:30)
--- NOTE | 2016-12-23 03:48 | CONS ---
DATE OF ADMISSION: 12/16/2016 DATE OF CONSULTATION: REFERRING PHYSICIAN: Dr. Gil HISTORY OF PRESENT ILLNESS: The patient is a 76-year-old lady admitted to [facility] with underlying stroke, atrial fibrillation for which the patient was anticoagulated on Xarelto and switched to Coumadin on which the patient stabilized and transferred to acute rehab for continua tion of her treatment. The patient has a history of hypertension, diabetes type 2, coronary artery disease, cardiac ____, anemia, breast cancer, colon cancer. MEDICATIONS: Her current medications include 1. Lantus 20 mg once a day. 2. Lasix 20 mg once a day. 3. Albuterol 2 puff inhaler twice a day as needed. 4. Tylenol 650 twice a day. 5. Colace 100 mg twice a day. 6. Cordarone 200 mg once a day. 7. Lipitor 80 mg once a day. 8. Lovenox 70 mg once a day as needed. PHYSICAL EXAMINATION: GENERAL: Today, the patient is alert, awake, oriented for time, place, and person. She was on the phone when I talked to her with her family. CRANIAL NERVES: Cranial nerve II: Pupils equal both sides, reactive to light. Cranial nerves III, IV, and : Extraocular muscles intact. Cranial nerve V: Equal sensation to face. Cranial nerve VII: Symmetrical face. Cranial nerve VIII: Decreased hearing bilaterally. Cranial nerve X: Caroline vates palate. Cranial nerve XI: Elevates shoulder 5/5. Cranial nerve XII: With straight tongue. MOTOR: Decreased right hand director of vocational training, 4+/5. Sensation decreased for glove and sock area for light touc h and temperature. COORDINATION: [id number] test intact. HEART: Regular rate and rhythm. LUNGS: Equal breath sounds. ABDOMEN: Soft, relaxed, nondistended, nontender. ASSESSMENT AND PLAN 1. The patient is a 76-year-old lady with underlying stroke. We will continue the patient on Couma din and keep the INR between 2 to 3. 2. Status post weakness secondary to stroke in which the patient is under acute rehabilitation in t he form of physical therapy and occupational therapy. 3. History of atrial fibrillation with the patient on anticoagulation for which we changed her from Xarelto to Coumadin to continue her treatment. 4. History of seizure activity for which we will keep the patient under seizure precaution for now. 5. History of dyslipidemia with the patient on Lipitor 80 mg. We will follow up the patient with l ipid panel as needed. 6. History of diabetes for which we counseled the patient about the diet as well as follow up with hemoglobin A1c and sliding scale insulin. Again, thank you for asking me to see the patient with you. Dictated By: KAITLIN DANIEL/MENDEL Conf#: [id number] DID#: [id number]
[2016-12-23 07:10] VITALS: BP 121/57; RESP 20
[2016-12-23 07:19] LABS: ADD SCAN DIFF NO
[2016-12-23 07:28] LABS: BASOPHILS % 0.7 % (0.0-2.0); EOSINOPHILS # 0.4 10^3/ul (0.0-0.5); EOSINOPHILS % 7.2 % (0.0-7.0); HEMATOCRIT 32.2 % (37.0-47.0); LYMPHOCYTES # 1.4 10^3/ul (0.8-2.9); LYMPHOCYTES % 24.1 % (15.0-51.0); MEAN CORPUSCULAR HEMOGLOBIN 26.2 pg (29.0-33.0); MEAN CORPUSCULAR HGB CONC 31.1 g/dl (32.0-37.0); MEAN CORPUSCULAR VOLUME 84.5 fl (82.0-101.0); MEAN PLATELET VOLUME 11.2 fl (7.4-10.4); MONOCYTE # 0.6 10^3/ul (0.3-0.9); MONOCYTES % 10.9 % (0.0-11.0); NEUTROPHIL # 3.2 10^3/ul (1.6-7.5); NEUTROPHILS % 56.9 % (39.0-77.0); PLATELET COUNT 213 10^3/UL (140-415); RED BLOOD COUNT 3.81 10^6/ul (4.20-5.40); RED CELL DISTRIBUTION WIDTH 15.6 % (11.5-14.5); WHITE BLOOD COUNT 5.7 10^3/ul (4.8-10.8)
[2016-12-23 07:30] VITALS: BP 121/57; RESP 20
[2016-12-23 07:37] LABS: INR 2.96; PROTIME 31.2 Sec (12.2-14.2); PT RATIO 2.4
[2016-12-23 07:42] LABS: ALBUMIN 3.1 g/dl (3.3-4.9); POTASSIUM 3.5 mmol/L (3.5-5.1)
[2016-12-23 07:45] LABS: CALCIUM 8.8 mg/dl (8.4-10.2); CREATININE 1.29 mg/dl (0.44-1.00); PHOSPHORUS 3.9 mg/dl (2.5-4.9)
[2016-12-23] MEDS: INSULIN ASPART [NOVOLOG] 3 ML PEN SC SCH ×7 (08:13→21:00)
--- NOTE | 2016-12-23 08:16 | CONS ---
Date/Time of Note Date/Time of Note DATE: 12/23/16 TIME: 08:12 Assessment/Plan Assessment/Plan Chief Complaint/Hosp Course #1 cerebrovascular accident with altered mental status, altered speech pattern, facial twitching. All of these symptoms have improved. She is overall doing much better. Her speech is more fluent and the facial twitching has decreased significantly. she is up walking with PT and doing well . The patient is here for the comprehensive rehabilitation program. #2 history of atrial fibrillation on Coumadin and Lovenox now . Her INR is in therapeutic range . Will D/C Lovenox . She was previously on Xarelto. She was found to have moderate mitral stenosis and switched to Coumadin by the full stack software engineer. Will keep INR in therapeutic range . #3 hypertension blood pressure is controlled #4 type 2 diabetes mellitus, her blood sugars have been high. I will increase her Lantus insulin to 20 units a day and call her senior reliability engineer to see her.Dr Lentz is seeing her . #5 cardiac pacemaker #6 coronary artery disease status post stent placement #7 anemia #8 history of breast cancer #9 history of colon cancer status post resection. Problems: Consultation Date/Type/Reason Admit Date/Time Dec 16, 2016 at 21:30 Type of Consultation: General Medicine Referring Provider: ZHOU VALDEZ MD 24 HR Interval Summary Free Text/Dictation She is awake and alert . No complaints . Constitutional: no complaints Exam/Review of Systems Vital Signs Vitals Vital Signs Date Time Temp Pulse Resp B/P Pulse Ox O2 Delivery O2 Flow Rate FiO2 12/22/16 20:09 98.8 63 18 140/66 97 Room Air Intake and Output 12/22/16 12/22/16 12/23/16 15:00 23:00 07:00 Intake Total 120 ml 240 ml Balance 120 ml 240 ml Exam Constitutional: alert, obese, oriented Psych: no complaints Respiratory: clear to auscultation, normal air movement Cardiovascular: regular rate and rhythm Musculoskeletal: nl extremities to inspection Results Result Diagram: 12/23/16 0625 12/23/16 0625 Results 24 hrs Laboratory Tests Test 12/22/16 09:25 12/22/16 12:15 12/22/16 17:13 12/22/16 20:05 INR International Normalized Ratio 2.59 Prothrombin Time 28.1 H Prothrombin Time Ratio 2.2 Bedside Glucose 149 118 146 Test 12/23/16 06:25 12/23/16 07:38 Albumin 3.1 L Anion Gap 13 Basophils # 0.0 Basophils % 0.7 Blood Urea Nitrogen 21 H Calcium Level 8.8 Carbon Dioxide Level 31 Chloride Level 99 Creatinine 1.29 H Eosinophils # 0.4 Eosinophils % 7.2 H Glucose Level 113 Hematocrit 32.2 L Hemoglobin 10.0 L INR International Normalized Ratio 2.96 Lymphocytes # 1.4 Lymphocytes % 24.1 Magnesium Level 2.0 Mean Corpuscular Hemoglobin 26.2 L Mean Corpuscular Hemoglobin Concent 31.1 L Mean Corpuscular Volume 84.5 Mean Platelet Volume 11.2 H Monocytes # 0.6 Monocytes % 10.9 Neutrophils # 3.2 Neutrophils % 56.9 Nucleated Red Blood Cells # 0.0 Nucleated Red Blood Cells % 0.0 Phosphorus Level 3.9 Platelet Count 213 # Potassium Level 3.5 Prothrombin Time 31.2 H Prothrombin Time Ratio 2.4 Red Blood Count 3.81 L Red Cell Distribution Width 15.6 H Sodium Level 139 White Blood Count 5.7 Bedside Glucose 145 Medications Medications Current Medications Acetaminophen (Tylenol Tab) 650 mg Q6H PRN PO PAIN LEVEL 1-3 OR FEVER; Start at 22:11 Amiodarone HCl (Cordarone) 200 mg DAILY PO Last administered on 12/22/16 08:01 ; Admin Dose 200 MG; Start 12/16/16 at 22:11 Glucose (Glutose) 15 gm Q15M PRN PO DECREASED GLUCOSE; Start 12/16/16 at 22:11 Glucose (Glutose) 22.5 gm Q15M PRN PO DECREASED GLUCOSE; Start 12/16/16 at 22:11 Dextrose (D50w Syringe) 25 ml Q15M PRN IV DECREASED GLUCOSE; Start 12/16/16 at 22:11 Dextrose (D50w Syringe) 50 ml Q15M PRN IV DECREASED GLUCOSE; Start 12/16/16 at 22:11 Glucagon (Glucagen) 1 mg Q15M PRN IM DECREASED GLUCOSE; Start 12/16/16 at 22:11 Glucose (Glutose) 15 gm Q15M PRN BUCCAL DECREASED GLUCOSE; Start 12/16/16 at 22: 11 Atorvastatin Calcium (Lipitor) 80 mg HS PO Last administered on 12/22/16 20:09 ; Admin Dose 80 MG; Start 12/16/16 at 22:11 Furosemide (Lasix) 20 mg DAILY PO Last administered on 12/22/16 08:02; Admin Dose 20 MG; Start 12/18/16 at 09:00 Linagliptin (Tradjenta) 5 mg DAILY PO Last administered on 12/22/16 08:01; Admin Dose 5 MG; Start 12/18/16 at 11:30 Betamethasone/ Clotrimazole (Lotrisone Cr) 1 applic BID PRN TOP ITCHING; Start 12/19/16 at 14:00 Insulin Glargine (Lantus) 15 unit DAILY@20 SC Last administered on 12/22/16 20 :07; Admin Dose 15 UNIT; Start 12/21/16 at 20:00 Loratadine (Claritin) 10 mg DAILY PO ; Start 12/23/16 at 09:00 Nystatin (Nystatin Oint) 1 applic DAILY PRN TOP itching, groin Last administered on 12/23/16 01:56; Admin Dose 1 APPLIC; Start 12/22/16 at 21:30 Warfarin Sodium (Coumadin) 3 mg DAILY PO Last administered on 12/22/16 21:55; Admin Dose 3 MG; Start 12/22/16 at 21:00 ZHOU VALDEZ MD Dec 23, 2016 08:16
[2016-12-23] MEDS: LINAGLIPTIN 5 MG TABLET PO SCH (08:20)
[2016-12-23] MEDS: LORATADINE 10 MG TAB PO SCH (08:20)
[2016-12-23] MEDS: AMIODARONE 200 MG TAB PO SCH (08:21)
[2016-12-23] MEDS: FUROSEMIDE 20 MG TAB PO SCH (08:21)
--- NOTE | 2016-12-23 12:12 | CONS ---
Date/Time of Note Date/Time of Note DATE: 12/23/16 TIME: 12:08 Consult Date/Type/Reason Admit Date/Time Dec 16, 2016 at 21:30 Type of Consultation: General Medicine Ordering Provider: ZHOU VALDEZ MD Subjective Patient comfortable Objective Vital Signs Date Time Temp Pulse Resp B/P Pulse Ox O2 Delivery O2 Flow Rate FiO2 12/23/16 07:30 98.6 60 20 121/57 93 12/23/16 07:10 Room Air Intake and Output 12/22/16 12/22/16 12/23/16 15:00 23:00 07:00 Intake Total 120 ml 240 ml Balance 120 ml 240 ml INTERDISCIPLINARY TEAM CONFERENCE BOWEL- Cont BLADDER-Cont SKIN- intact OT- DRESSING-sba BATHING-sba TOILETING-sba PT- BED MOBILITY-sba TRANSFERS-sba AMBULATION-sba 200 SPEECH- COGNITION-min A/P- Interdisciplinary team conference held today. Please see interdisciplinary sheet. Working toward [place] on 12/26 with post discharge follow up of physical therapy, occupational therapy. Results/Medications Result Diagram: 12/23/16 0625 12/23/16 0625 Results 24 hrs Laboratory Tests Test 12/22/16 12:15 12/22/16 17:13 12/22/16 20:05 12/23/16 06:25 Bedside Glucose 149 118 146 Albumin 3.1 L Anion Gap 13 Basophils # 0.0 Basophils % 0.7 Blood Urea Nitrogen 21 H Calcium Level 8.8 Carbon Dioxide Level 31 Chloride Level 99 Creatinine 1.29 H Eosinophils # 0.4 Eosinophils % 7.2 H Glucose Level 113 Hematocrit 32.2 L Hemoglobin 10.0 L INR International Normalized Ratio 2.96 Lymphocytes # 1.4 Lymphocytes % 24.1 Magnesium Level 2.0 Mean Corpuscular Hemoglobin 26.2 L Mean Corpuscular Hemoglobin Concent 31.1 L Mean Corpuscular Volume 84.5 Mean Platelet Volume 11.2 H Monocytes # 0.6 Monocytes % 10.9 Neutrophils # 3.2 Neutrophils % 56.9 Nucleated Red Blood Cells # 0.0 Nucleated Red Blood Cells % 0.0 Phosphorus Level 3.9 Platelet Count 213 # Potassium Level 3.5 Prothrombin Time 31.2 H Prothrombin Time Ratio 2.4 Red Blood Count 3.81 L Red Cell Distribution Width 15.6 H Sodium Level 139 White Blood Count 5.7 Test 3/13/17 07:38 Bedside Glucose 145 Medications Current Medications Acetaminophen (Tylenol Tab) 650 mg Q6H PRN PO PAIN LEVEL 1-3 OR FEVER; Start at 22:11 Amiodarone HCl (Cordarone) 200 mg DAILY PO Last administered on 12/23/16 08:21 ; Admin Dose 200 MG; Start 12/16/16 at 22:11 Glucose (Glutose) 15 gm Q15M PRN PO DECREASED GLUCOSE; Start 12/16/16 at 22:11 Glucose (Glutose) 22.5 gm Q15M PRN PO DECREASED GLUCOSE; Start 12/16/16 at 22:11 Dextrose (D50w Syringe) 25 ml Q15M PRN IV DECREASED GLUCOSE; Start 12/16/16 at 22:11 Dextrose (D50w Syringe) 50 ml Q15M PRN IV DECREASED GLUCOSE; Start 12/16/16 at 22:11 Glucagon (Glucagen) 1 mg Q15M PRN IM DECREASED GLUCOSE; Start 12/16/16 at 22:11 Glucose (Glutose) 15 gm Q15M PRN BUCCAL DECREASED GLUCOSE; Start 12/16/16 at 22: 11 Atorvastatin Calcium (Lipitor) 80 mg HS PO Last administered on 12/22/16 20:09 ; Admin Dose 80 MG; Start 12/16/16 at 22:11 Furosemide (Lasix) 20 mg DAILY PO Last administered on 12/23/16 08:21; Admin Dose 20 MG; Start 12/18/16 at 09:00 Linagliptin (Tradjenta) 5 mg DAILY PO Last administered on 12/23/16 08:20; Admin Dose 5 MG; Start 12/18/16 at 11:30 Betamethasone/ Clotrimazole (Lotrisone Cr) 1 applic BID PRN TOP ITCHING; Start 12/19/16 at 14:00 Insulin Glargine (Lantus) 15 unit DAILY@20 SC Last administered on 12/22/16 20 :07; Admin Dose 15 UNIT; Start 12/21/16 at 20:00 Loratadine (Claritin) 10 mg DAILY PO Last administered on 12/23/16 08:20; Admin Dose 10 MG; Start 12/23/16 at 09:00 Nystatin (Nystatin Oint) 1 applic DAILY PRN TOP itching, groin Last administered on 12/23/16t 01:56; Admin Dose 1 APPLIC; Start 12/22/16 at 21:30 Warfarin Sodium (Coumadin) 3 mg DAILY@17 PO ; Start 12/23/16 at 17:00 SOPHIE HALL MD Dec 23, 2016 12:12
[2016-12-23] MEDS ORDERED: WARFARIN 3 MG TAB PO SCH (17:00)
[2016-12-23] MEDS ORDERED: WARFARIN 3 MG TAB PO ONE (17:00)
--- NOTE | 2016-12-23 18:05 | CONS ---
Date/Time of Note Date/Time of Note DATE: 12/23/16 TIME: 18:03 Assessment/Plan Assessment/Plan Problems: (1) Type 2 diabetes mellitus without complications Status: Chronic Comment: Excellent glycemic control. Mild hypoglycemia 2 days ago. Lantus reduced from 20 to 15 units. In good control since then. Will continue current doses. 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 insulin use: with half-way use Qualified Code : E11.9 - Type 2 diabetes mellitus without complication, with long-term current use of insulin Consultation Date/Type/Reason Admit Date/Time Dec 16, 2016 at 21:30 Initial Consult Date 12/18/16 Type of Consultation: Emdocrinology Reason for Consultation T2DM management Referring Provider: ZHOU VALDEZ MD 24 HR Interval Summary Constitutional: improved, no complaints Detailed Summary Respiratory: no complaints Cardiovascular: no complaints Gastrointestinal: no complaints Genitourinary: no complaints Musculoskeletal: no complaints Neurologic: no complaints Exam/Review of Systems Vital Signs Vitals VS - Last 72 Hours, by Label Date Time Temp Pulse Resp B/P Pulse Ox O2 Delivery O2 Flow Rate FiO2 12/23/16 07:30 98.6 60 20 121/57 93 12/23/16 07:10 98.6 20 121/57 95 Room Air 12/22/16 20:09 98.8 63 18 140/66 97 Room Air 12/22/16 07:15 98.6 19 123/56 95 12/21/16 19:37 98.6 69 20 121/59 98 12/21/16 08:00 98.3 83 18 131/60 12/20/16 20:36 98.4 64 18 119/59 97 Vital Signs Date Time Temp Pulse Resp B/P Pulse Ox O2 Delivery O2 Flow Rate FiO2 12/23/16 07:30 98.6 60 20 121/57 93 12/23/16 07:10 Room Air Intake and Output 12/22/16 12/22/16 12/23/16 15:00 23:00 07:00 Intake Total 120 ml 240 ml Balance 120 ml 240 ml Exam Constitutional: alert, obese, oriented Psych: nl mood/affect, no complaints Respiratory: clear to auscultation, normal air movement Cardiovascular: nl pulses, regular rate and rhythm, No edema, No murmurs/extra sounds, No rub Gastrointestinal: bowel sounds, nl liver, spleen, non-tender, soft, No mass, No rebound or guarding Musculoskeletal: nl extremities to inspection Extremities: normal pulses, No clubbing, No cyanosis, No edema Neurological: CORE FINISHER II-XII intact, nl mental status, nl speech, nl strength Additional Comments Bedside Glucose - 72 Hours Test 12/20/16 20:18 12/21/16 07:45 12/21/16 12:02 12/21/16 14:13 Bedside Glucose 137mg/dL (70-220) 131mg/dL (70-220) 151mg/dL (70-220) 69mg/dL (70-220) L Test 12/21/16 14:35 12/21/16 17:21 12/21/16 20:23 12/22/16 02:03 Bedside Glucose 96mg/dL (70-220) 125mg/dL (70-220) 202mg/dL (70-220) 103mg/dL (70-220) Test 12/22/16 07:28 12/22/16 12:15 12/22/16 17:13 12/22/16 20:05 Bedside Glucose 131mg/dL (70-220) 149mg/dL (70-220) 118mg/dL (70-220) 146mg/dL (70-220) Test 12/23/16 07:38 12/23/16 12:13 12/23/16 17:02 Bedside Glucose 145mg/dL (70-220) 128mg/dL (70-220) 130mg/dL (70-220) Results Result Diagram: 12/23/16 0625 12/23/16 0625 Results 24 hrs Laboratory Tests Test 12/22/16 20:05 12/23/16 06:25 12/23/16 07:38 12/23/16 12:13 Bedside Glucose 146 145 128 Albumin 3.1 L Anion Gap 13 Basophils # 0.0 Basophils % 0.7 Blood Urea Nitrogen 21 H Calcium Level 8.8 Carbon Dioxide Level 31 Chloride Level 99 Creatinine 1.29 H Eosinophils # 0.4 Eosinophils % 7.2 H Glucose Level 113 Hematocrit 32.2 L Hemoglobin 10.0 L INR International Normalized Ratio 2.96 Lymphocytes # 1.4 Lymphocytes % 24.1 Magnesium Level 2.0 Mean Corpuscular Hemoglobin 26.2 L Mean Corpuscular Hemoglobin Concent 31.1 L Mean Corpuscular Volume 84.5 Mean Platelet Volume 11.2 H Monocytes # 0.6 Monocytes % 10.9 Neutrophils # 3.2 Neutrophils % 56.9 Nucleated Red Blood Cells # 0.0 Nucleated Red Blood Cells % 0.0 Phosphorus Level 3.9 Platelet Count 213 # Potassium Level 3.5 Prothrombin Time 31.2 H Prothrombin Time Ratio 2.4 Red Blood Count 3.81 L Red Cell Distribution Width 15.6 H Sodium Level 139 White Blood Count 5.7 Test 12/23/16 17:02 Bedside Glucose 130 Medications Medications Current Medications Acetaminophen (Tylenol Tab) 650 mg Q6H PRN PO PAIN LEVEL 1-3 OR FEVER; Start at 22:11 Amiodarone HCl (Cordarone) 200 mg DAILY PO Last administered on 12/23/16 08:21 ; Admin Dose 200 MG; Start 12/16/16 at 22:11 Glucose (Glutose) 15 gm Q15M PRN PO DECREASED GLUCOSE; Start 12/16/16 at 22:11 Glucose (Glutose) 22.5 gm Q15M PRN PO DECREASED GLUCOSE; Start 12/16/16 at 22:11 Dextrose (D50w Syringe) 25 ml Q15M PRN IV DECREASED GLUCOSE; Start 12/16/16 at 22:11 Dextrose (D50w Syringe) 50 ml Q15M PRN IV DECREASED GLUCOSE; Start 12/16/16 at 22:11 Glucagon (Glucagen) 1 mg Q15M PRN IM DECREASED GLUCOSE; Start 12/16/16 at 22:11 Glucose (Glutose) 15 gm Q15M PRN BUCCAL DECREASED GLUCOSE; Start 12/16/16 at 22: 11 Atorvastatin Calcium (Lipitor) 80 mg HS PO Last administered on 12/22/16 20:09 ; Admin Dose 80 MG; Start 12/16/16 at 22:11 Furosemide (Lasix) 20 mg DAILY PO Last administered on 12/23/16 08:21; Admin Dose 20 MG; Start 12/18/16 at 09:00 Linagliptin (Tradjenta) 5 mg DAILY PO Last administered on 12/23/16 08:20; Admin Dose 5 MG; Start 12/18/16 at 11:30 Betamethasone/ Clotrimazole (Lotrisone Cr) 1 applic BID PRN TOP ITCHING; Start 12/19/16 at 14:00 Insulin Glargine (Lantus) 15 unit DAILY@20 SC Last administered on 12/22/16 20 :07; Admin Dose 15 UNIT; Start 12/21/16 at 20:00 Loratadine (Claritin) 10 mg DAILY PO Last administered on 12/23/16 08:20; Admin Dose 10 MG; Start 12/23/16 at 09:00 Nystatin (Nystatin Oint) 1 applic DAILY PRN TOP itching, groin Last administered on 12/23/16 01:56; Admin Dose 1 APPLIC; Start 12/22/16 at 21:30 Warfarin Sodium (Coumadin) 3 mg DAILY@17 PO Last administered on 12/23/16 17: 25; Admin Dose 3 MG; Start 12/23/16 at 17:00 LANDY SINGH MD Dec 23, 2016 18:05
[2016-12-23 19:27] VITALS: BP 147/74; RESP 19
[2016-12-23] MEDS: ATORVASTATIN 80 MG TAB PO SCH (21:00)
[2016-12-23] MEDS: INSULIN GLARGINE [LANtus] 3 ML PEN SC SCH (21:01)
[2016-12-24] MEDS: INSULIN ASPART [NOVOLOG] 3 ML PEN SC SCH ×7 (07:35→21:00)
[2016-12-24] MEDS: LORATADINE 10 MG TAB PO SCH (08:04)
[2016-12-24] MEDS: AMIODARONE 200 MG TAB PO SCH (08:04)
[2016-12-24] MEDS: FUROSEMIDE 20 MG TAB PO SCH (08:05)
[2016-12-24 08:06] VITALS: BP 149/70; RESP 18
[2016-12-24] MEDS: LINAGLIPTIN 5 MG TABLET PO SCH (08:08)
--- NOTE | 2016-12-24 08:38 | CONS ---
Date/Time of Note Date/Time of Note DATE: 12/24/16 TIME: 08:35 Assessment/Plan Assessment/Plan Chief Complaint/Hosp Course #1 cerebrovascular accident with altered mental status, altered speech pattern, facial twitching. All of these symptoms have improved. She is overall doing much better. Her speech is more fluent and the facial twitching has decreased significantly. she is up walking with PT and doing well . The patient is here for the comprehensive rehabilitation program.She is going home in 2 days . #2 history of atrial fibrillation on Coumadin and Lovenox now . Her INR is in therapeutic range . Will D/C Lovenox . She was previously on Xarelto. She was found to have moderate mitral stenosis and switched to Coumadin by the maintenance mechanic 2nd shift. Will keep INR in therapeutic range . #3 hypertension blood pressure is controlled #4 type 2 diabetes mellitus, her blood are lower . I will increase her Lantus insulin to 20 units a day and call her sap security consultant to see her.Dr Lentz is seeing her . #5 cardiac pacemaker #6 coronary artery disease status post stent placement #7 anemia #8 history of breast cancer #9 history of colon cancer status post resection. Problems: Consultation Date/Type/Reason Admit Date/Time Dec 16, 2016 at 21:30 Type of Consultation: Emdocrinology Referring Provider: ZHOU VALDEZ MD 24 HR Interval Summary Free Text/Dictation She is feeling better . Constitutional: improved, no complaints Exam/Review of Systems Vital Signs Vitals Vital Signs Date Time Temp Pulse Resp B/P Pulse Ox O2 Delivery O2 Flow Rate FiO2 12/24/16 08:06 98.3 75 18 149/70 98 12/23/16 07:10 Room Air Intake and Output 12/23/16 12/23/16 12/24/16 15:00 23:00 07:00 Intake Total 1120 ml 300 ml Output Total 450 ml Balance 1120 ml -150 ml Exam Constitutional: alert, oriented, well developed Psych: nl mood/affect, no complaints Respiratory: clear to auscultation, normal air movement Cardiovascular: regular rate and rhythm Musculoskeletal: nl extremities to inspection Results Result Diagram: 12/23/16 0625 12/23/16 0625 Results 24 hrs Laboratory Tests Test 12/23/16 12:13 12/23/16 17:02 12/23/16 20:58 12/24/16 07:41 Bedside Glucose 128 130 143 123 Medications Medications Current Medications Acetaminophen (Tylenol Tab) 650 mg Q6H PRN PO PAIN LEVEL 1-3 OR FEVER; Start at 22:11 Amiodarone HCl (Cordarone) 200 mg DAILY PO Last administered on 12/24/16 08:04 ; Admin Dose 200 MG; Start 12/16/16 at 22:11 Glucose (Glutose) 15 gm Q15M PRN PO DECREASED GLUCOSE; Start 12/16/16 at 22:11 Glucose (Glutose) 22.5 gm Q15M PRN PO DECREASED GLUCOSE; Start 12/16/16 at 22:11 Dextrose (D50w Syringe) 25 ml Q15M PRN IV DECREASED GLUCOSE; Start 12/16/16 at 22:11 Dextrose (D50w Syringe) 50 ml Q15M PRN IV DECREASED GLUCOSE; Start 12/16/16 at 22:11 Glucagon (Glucagen) 1 mg Q15M PRN IM DECREASED GLUCOSE; Start 12/16/16 at 22:11 Glucose (Glutose) 15 gm Q15M PRN BUCCAL DECREASED GLUCOSE; Start 12/16/16 at 22: 11 Atorvastatin Calcium (Lipitor) 80 mg HS PO Last administered on 12/23/16 21:00 ; Admin Dose 80 MG; Start 12/16/16 at 22:11 Furosemide (Lasix) 20 mg DAILY PO Last administered on 12/24/16 08:05; Admin Dose 20 MG; Start 12/18/16 at 09:00 Linagliptin (Tradjenta) 5 mg DAILY PO Last administered on 12/24/16 08:08; Admin Dose 5 MG; Start 12/18/16 at 11:30 Betamethasone/ Clotrimazole (Lotrisone Cr) 1 applic BID PRN TOP ITCHING; Start 12/19/16 at 14:00 Insulin Glargine (Lantus) 15 unit DAILY@20 SC Last administered on 12/23/16 21 :01; Admin Dose 15 UNIT; Start 12/21/16 at 20:00 Loratadine (Claritin) 10 mg DAILY PO Last administered on 12/24/16 08:04; Admin Dose 10 MG; Start 12/23/16 at 09:00 Nystatin (Nystatin Oint) 1 applic DAILY PRN TOP itching, groin Last administered on 12/23/16 01:56; Admin Dose 1 APPLIC; Start 12/22/16 at 21:30 Warfarin Sodium (Coumadin) 3 mg DAILY@17 PO Last administered on 12/23/16 17: 25; Admin Dose 3 MG; Start 12/23/16 at 17:00 ZHOU VALDEZ MD Dec 24, 2016 08:38
[2016-12-24 10:03] LABS: INR 3.12; PROTIME 32.6 Sec (12.2-14.2); PT RATIO 2.5
--- NOTE | 2016-12-24 11:03 | CONS ---
Date/Time of Note Date/Time of Note DATE: 12/24/16 TIME: 11:02 Consult Date/Type/Reason Admit Date/Time Dec 16, 2016 at 21:30 Type of Consultation: Emdocrinology Ordering Provider: ZHOU VALDEZ MD Subjective comfortable, excellent progress Objective pulm-cta abd-soft sba/s ambulation Vital Signs Date Time Temp Pulse Resp B/P Pulse Ox O2 Delivery O2 Flow Rate FiO2 12/24/16 08:06 98.3 75 18 149/70 98 12/23/16 07:10 Room Air Intake and Output 12/23/16 12/23/16 12/24/16 15:00 23:00 07:00 Intake Total 1120 ml 300 ml Output Total 450 ml Balance 1120 ml -150 ml Results/Medications Result Diagram: 12/23/1662412/23/16 0625 Results 24 hrs Laboratory Tests Test 12/23/16 12:13 12/23/16 17:02 12/23/16 20:58 12/24/16 07:41 Bedside Glucose 128 130 143 123 Test 12/24/16 08:46 INR International Normalized Ratio 3.12 Prothrombin Time 32.6 H Prothrombin Time Ratio 2.5 Medications Current Medications Acetaminophen (Tylenol Tab) 650 mg Q6H PRN PO PAIN LEVEL 1-3 OR FEVER; Start at 22:11 Amiodarone HCl (Cordarone) 200 mg DAILY PO Last administered on 12/24/16t 08:04 ; Admin Dose 200 MG; Start 12/16/16 at 22:11 Glucose (Glutose) 15 gm Q15M PRN PO DECREASED GLUCOSE; Start 12/16/16 at 22:11 Glucose (Glutose) 22.5 gm Q15M PRN PO DECREASED GLUCOSE; Start 12/16/16 at 22:11 Dextrose (D50w Syringe) 25 ml Q15M PRN IV DECREASED GLUCOSE; Start 12/16/16 at 22:11 Dextrose (D50w Syringe) 50 ml Q15M PRN IV DECREASED GLUCOSE; Start 12/16/16 at 22:11 Glucagon (Glucagen) 1 mg Q15M PRN IM DECREASED GLUCOSE; Start 12/16/16 at 22:11 Glucose (Glutose) 15 gm Q15M PRN BUCCAL DECREASED GLUCOSE; Start 12/16/16 at 22: 11 Atorvastatin Calcium (Lipitor) 80 mg HS PO Last administered on 12/23/16 21:00 ; Admin Dose 80 MG; Start 12/16/16 at 22:11 Furosemide (Lasix) 20 mg DAILY PO Last administered on 12/24/16 08:05; Admin Dose 20 MG; Start 12/18/16 at 09:00 Linagliptin (Tradjenta) 5 mg DAILY PO Last administered on 12/24/16 08:08; Admin Dose 5 MG; Start 12/18/16 at 11:30 Betamethasone/ Clotrimazole (Lotrisone Cr) 1 applic BID PRN TOP ITCHING; Start 12/19/16 at 14:00 Insulin Glargine (Lantus) 15 unit DAILY@20 SC Last administered on 12/23/16 21 :01; Admin Dose 15 UNIT; Start 12/21/16 at 20:00 Loratadine (Claritin) 10 mg DAILY PO Last administered on 12/24/16 08:04; Admin Dose 10 MG; Start 12/23/16 at 09:00 Nystatin (Nystatin Oint) 1 applic DAILY PRN TOP itching, groin Last administered on 12/23/16 01:56; Admin Dose 1 APPLIC; Start 12/22/16 at 21:30 Warfarin Sodium (Coumadin) 2 mg ONCE@17 ONCE PO ; Start 12/24/16 at 17:00; Stop 12/24/16 at 17:01; Status UNV Assessment/Plan Additional Assessment/Plan Rehab-Infarct/CVA. Continue rehab program. SW working on post dc follow up Atrial fibrillation. Hypertension. Coronary artery disease. Diabetes mellitus. Gastroesophageal reflux disease. Hyperlipidemia. Chronic kidney disease. Peripheral neuropathy. Anemia History of colon carcinoma and resection. History of left lower lobe pneumonia. History of pacemaker placement. History of asthma. SOPHIE HALL MD Dec 24, 2016 11:03
[2016-12-24] MEDS ORDERED: WARFARIN 2 MG TAB PO ONE (17:00)
--- NOTE | 2016-12-24 18:44 | SP ---
DATE OF PROCEDURE: 12/24/2016 REFERRING PHYSICIAN: Dr. Gil, Thank you for asking me to see the patient with you. HISTORY OF PRESENT ILLNESS: Patient is a 76-year-old lady with underlying stroke in which we starte d the patient on anticoagulation in the form of Coumadin and followed up the patient with INR level. The patient already has hypertension, diabetes, coronary artery disease, breast carcinoma, colon c arcinoma in which the patient under acute rehab for more evaluation and treatment. CURRENT MEDICATIONS: Include: 1. Lantus 20 mg once a day. 2. Lasix 20 mg once a day. 3. Albuterol 2 puffs twice a day as needed. 4. ____50 mg once a day. 5. Colace 100 mg twice a day as needed. 6. Cordarone 200 mg once a day. 7. Lipitor 80 mg once a day. PHYSICAL EXAMINATION GENERAL: On exam today, the patient is alert, awake, and follows simple commands without difficulty . CRANIAL NERVES: Cranial nerve II: Pupils equal on both sides, reactive to light. Cranial nerves I II, IV, and : Extraocular muscles intact. Cranial nerve V: Equal sensation to face. Cranial ne rve VII: Symmetrical face. Cranial nerve VIII: Decreased hearing bilaterally. Cranial nerve IX a nd X: Elevates ____. Cranial nerves XI: Elevates shoulder 5/5. Cranial nerve XII: With straight tongue. HEART: Regular rate and rhythm. LUNGS: Equal breath sounds. ABDOMEN: Soft, relaxed, nondistended, nontender. ASSESSMENT AND PLAN 1. The patient is a 76-year-old with underlying stroke. INR of 2.3. To continue her on anticoagul ation. 2. Status post atrial fibrillation in which the patient is followed by freelance programmer/app developer and we will swi tch her from Xarelto to Coumadin. 3. History of seizure activity. Follow up the patient with seizure precaution and aspiration preca ution. 4. History of dyslipidemia. Keep the patient on Lipitor 80 mg once a day. 5. History of diabetes. We will follow up the patient with diet consult and follow up the patient with sliding scale insulin. 6. Gait difficulty. Keep the patient on acute rehab for more evaluation and treatment for physical therapy and occupation therapy. Again, thank you for asking me to see the patient with you. Dictated By: KAITLIN DANIEL/NTS Conf#: [id number] DID#: [id number]
[2016-12-24 19:28] VITALS: BP 143/63; RESP 20
--- NOTE | 2016-12-24 19:28 | CONS ---
Date/Time of Note Date/Time of Note DATE: 12/24/16 TIME: 19:26 Assessment/Plan Assessment/Plan Problems: (1) Type 2 diabetes mellitus without complications Status: Chronic Comment: Good glycemic control. Cont. current insulin doses. 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 Qualified Code : E11.9 - Type 2 diabetes mellitus without complication, with long-term current use of insulin Consultation Date/Type/Reason Admit Date/Time Dec 16, 2016 at 21:30 Initial Consult Date 12/18/16 Type of Consultation: Endocrinology Reason for Consultation T2DM Referring Provider: ZHOU VALDEZ MD 24 HR Interval Summary Constitutional: improved, no complaints Detailed Summary Respiratory: no complaints Cardiovascular: no complaints Gastrointestinal: no complaints Genitourinary: no complaints Musculoskeletal: no complaints Neurologic: no complaints Exam/Review of Systems Vital Signs Vitals VS - Last 72 Hours, by Label Date Time Temp Pulse Resp B/P Pulse Ox O2 Delivery O2 Flow Rate FiO2 12/24/16 08:06 98.3 75 18 149/70 98 12/23/16 19:27 98.5 65 19 147/74 97 12/23/16 07:30 98.6 60 20 121/57 93 12/23/16 07:10 98.6 20 121/57 95 Room Air 12/22/16 20:09 98.8 63 18 140/66 97 Room Air 12/22/16 07:15 98.6 19 123/56 95 12/21/16 19:37 98.6 69 20 121/59 98 Vital Signs Date Time Temp Pulse Resp B/P Pulse Ox O2 Delivery O2 Flow Rate FiO2 12/24/16 08:06 98.3 75 18 149/70 98 12/23/16 07:10 Room Air Intake and Output 12/23/16 12/23/16 12/24/16 15:00 23:00 07:00 Intake Total 1120 ml 300 ml Output Total 450 ml Balance 1120 ml -150 ml Exam Constitutional: alert, obese, oriented Psych: nl mood/affect, no complaints Respiratory: clear to auscultation, normal air movement Cardiovascular: nl pulses, regular rate and rhythm, No edema, No murmurs/extra sounds, No rub Gastrointestinal: bowel sounds, nl liver, spleen, non-tender, soft, No mass, No rebound or guarding Musculoskeletal: nl extremities to inspection Extremities: normal pulses, No clubbing, No cyanosis, No edema Neurological: INTERNAL MEDICINE NURSE II-XII intact, nl mental status, nl speech, nl strength Additional Comments Bedside Glucose - 72 Hours Test 12/21/16 20:23 12/22/16 02:03 12/22/16 07:28 12/22/16 12:15 Bedside Glucose 202mg/dL (70-220) 103mg/dL (70-220) 131mg/dL (70-220) 149mg/dL (70-220) Test 12/22/16 17:13 12/22/16 20:05 12/23/16 07:38 12/23/16 12:13 Bedside Glucose 118mg/dL (70-220) 146mg/dL (70-220) 145mg/dL (70-220) 128mg/dL (70-220) Test 12/23/16 17:02 12/23/16 20:58 12/24/16 07:41 12/24/16 11:50 Bedside Glucose 130mg/dL (70-220) 143mg/dL (70-220) 123mg/dL (70-220) 167mg/dL (70-220) Test 12/24/16 16:54 Bedside Glucose 128mg/dL (70-220) Results Result Diagram: 12/23/16 0625 12/23/16 0625 Results 24 hrs Laboratory Tests Test 12/23/16 20:58 12/24/16 07:41 12/24/16 08:46 12/24/16 11:50 Bedside Glucose 143 123 167 INR International Normalized Ratio 3.12 Prothrombin Time 32.6 H Prothrombin Time Ratio 2.5 Test 12/24/16 16:54 Bedside Glucose 128 Medications Medications Current Medications Acetaminophen (Tylenol Tab) 650 mg Q6H PRN PO PAIN LEVEL 1-3 OR FEVER; Start at 22:11 Amiodarone HCl (Cordarone) 200 mg DAILY PO Last administered on 12/24/16t 08:04 ; Admin Dose 200 MG; Start 12/16/16 at 22:11 Glucose (Glutose) 15 gm Q15M PRN PO DECREASED GLUCOSE; Start 12/16/16 at 22:11 Glucose (Glutose) 22.5 gm Q15M PRN PO DECREASED GLUCOSE; Start 12/16/16 at 22:11 Dextrose (D50w Syringe) 25 ml Q15M PRN IV DECREASED GLUCOSE; Start 12/16/16 at 22:11 Dextrose (D50w Syringe) 50 ml Q15M PRN IV DECREASED GLUCOSE; Start 12/16/16 at 22:11 Glucagon (Glucagen) 1 mg Q15M PRN IM DECREASED GLUCOSE; Start 12/16/16 at 22:11 Glucose (Glutose) 15 gm Q15M PRN BUCCAL DECREASED GLUCOSE; Start 12/16/16 at 22: 11 Atorvastatin Calcium (Lipitor) 80 mg HS PO Last administered on 12/23/16 21:00 ; Admin Dose 80 MG; Start 12/16/16 at 22:11 Furosemide (Lasix) 20 mg DAILY PO Last administered on 12/24/16 08:05; Admin Dose 20 MG; Start 12/18/16 at 09:00 Linagliptin (Tradjenta) 5 mg DAILY PO Last administered on 12/24/16 08:08; Admin Dose 5 MG; Start 12/18/16 at 11:30 Betamethasone/ Clotrimazole (Lotrisone Cr) 1 applic BID PRN TOP ITCHING; Start 12/19/16 at 14:00 Insulin Glargine (Lantus) 15 unit DAILY@20 SC Last administered on 12/23/16 21 :01; Admin Dose 15 UNIT; Start 12/21/16 at 20:00 Loratadine (Claritin) 10 mg DAILY PO Last administered on 12/24/16 08:04; Admin Dose 10 MG; Start 12/23/16 at 09:00 Nystatin (Nystatin Oint) 1 applic DAILY PRN TOP itching, groin Last administered on 12/23/16 01:56; Admin Dose 1 APPLIC; Start 12/22/16 at 21:30 LANDY SINGH MD Dec 24, 2016 19:28
[2016-12-24] MEDS: ATORVASTATIN 80 MG TAB PO SCH (20:22)
[2016-12-24] MEDS: INSULIN GLARGINE [LANtus] 3 ML PEN SC SCH (20:25)
[2016-12-25 07:00] LABS: INR 3.34; PROTIME 34.4 Sec (12.2-14.2); PT RATIO 2.7
--- NOTE | 2016-12-25 08:13 | CONS ---
Date/Time of Note Date/Time of Note DATE: 12/25/16 TIME: 08:11 Assessment/Plan Assessment/Plan Chief Complaint/Hosp Course #1 cerebrovascular accident with altered mental status, altered speech pattern, facial twitching. All of these symptoms have improved. She is overall doing much better. Her speech is more fluent and the facial twitching has decreased significantly. she is up walking with PT and doing well . The patient is here for the comprehensive rehabilitation program.She is going home tomorrow and I will review her medications then. #2 history of atrial fibrillation on Coumadin and Lovenox now . Her INR is in therapeutic range . Will D/C Lovenox . She was previously on Xarelto. She was found to have moderate mitral stenosis and switched to Coumadin by the education professor. Will keep INR in therapeutic range . #3 hypertension blood pressure is controlled #4 type 2 diabetes mellitus, her blood sugars are under control.. #5 cardiac pacemaker #6 coronary artery disease status post stent placement #7 anemia #8 history of breast cancer #9 history of colon cancer status post resection. Problems: Consultation Date/Type/Reason Admit Date/Time Dec 16, 2016 at 21:30 Type of Consultation: Endocrinology Referring Provider: ZHOU VALDEZ MD 24 HR Interval Summary Free Text/Dictation She is feeling better today. Constitutional: improved, no complaints Exam/Review of Systems Vital Signs Vitals Vital Signs Date Time Temp Pulse Resp B/P Pulse Ox O2 Delivery O2 Flow Rate FiO2 12/24/16 19:28 98.5 66 20 143/63 95 12/23/16 07:10 Room Air Intake and Output 12/24/16 12/24/16 12/25/16 15:00 23:00 07:00 Intake Total 1270 ml 360 ml 300 ml Balance 1270 ml 360 ml 300 ml Exam Constitutional: alert, oriented, well developed Psych: nl mood/affect, no complaints Respiratory: clear to auscultation, normal air movement Cardiovascular: regular rate and rhythm Gastrointestinal: soft Musculoskeletal: nl extremities to inspection Results Result Diagram: 12/23/16 0625 12/23/16 0625 Results 24 hrs Laboratory Tests Test 12/24/16 08:46 12/24/16 11:50 12/24/16 16:54 12/24/16 20:06 INR International Normalized Ratio 3.12 Prothrombin Time 32.6 H Prothrombin Time Ratio 2.5 Bedside Glucose 167 128 119 Test 12/25/16 06:20 12/25/16 07:49 INR International Normalized Ratio 3.34 Prothrombin Time 34.4 H Prothrombin Time Ratio 2.7 Bedside Glucose 143 Medications Medications Current Medications Acetaminophen (Tylenol Tab) 650 mg Q6H PRN PO PAIN LEVEL 1-3 OR FEVER; Start at 22:11 Amiodarone HCl (Cordarone) 200 mg DAILY PO Last administered on 12/24/16 08:04 ; Admin Dose 200 MG; Start 12/16/16 at 22:11 Glucose (Glutose) 15 gm Q15M PRN PO DECREASED GLUCOSE; Start 12/16/16 at 22:11 Glucose (Glutose) 22.5 gm Q15M PRN PO DECREASED GLUCOSE; Start 12/16/16 at 22:11 Dextrose (D50w Syringe) 25 ml Q15M PRN IV DECREASED GLUCOSE; Start 12/16/16 at 22:11 Dextrose (D50w Syringe) 50 ml Q15M PRN IV DECREASED GLUCOSE; Start 12/16/16 at 22:11 Glucagon (Glucagen) 1 mg Q15M PRN IM DECREASED GLUCOSE; Start 12/16/16 at 22:11 Glucose (Glutose) 15 gm Q15M PRN BUCCAL DECREASED GLUCOSE; Start 12/16/16 at 22: 11 Atorvastatin Calcium (Lipitor) 80 mg HS PO Last administered on 12/24/16 20:22 ; Admin Dose 80 MG; Start 12/16/16 at 22:11 Furosemide (Lasix) 20 mg DAILY PO Last administered on 12/24/16 08:05; Admin Dose 20 MG; Start 12/18/16 at 09:00 Linagliptin (Tradjenta) 5 mg DAILY PO Last administered on 12/24/16 08:08; Admin Dose 5 MG; Start 12/18/16 at 11:30 Betamethasone/ Clotrimazole (Lotrisone Cr) 1 applic BID PRN TOP ITCHING; Start 12/19/16 at 14:00 Insulin Glargine (Lantus) 15 unit DAILY@20 SC Last administered on 12/24/16 20 :25; Admin Dose 15 UNIT; Start 12/21/16 at 20:00 Loratadine (Claritin) 10 mg DAILY PO Last administered on 12/24/16 08:04; Admin Dose 10 MG; Start 12/23/16 at 09:00 Nystatin (Nystatin Oint) 1 applic DAILY PRN TOP itching, groin Last administered on 12/23/16 01:56; Admin Dose 1 APPLIC; Start 12/22/16 at 21:30 ZHOU VALDEZ MD Dec 25, 2016 08:13
[2016-12-25] MEDS: INSULIN ASPART [NOVOLOG] 3 ML PEN SC SCH ×7 (08:26→21:00)
[2016-12-25] MEDS: LORATADINE 10 MG TAB PO SCH (08:31)
[2016-12-25] MEDS: FUROSEMIDE 20 MG TAB PO SCH (08:39)
[2016-12-25] MEDS: LINAGLIPTIN 5 MG TABLET PO SCH (08:39)
[2016-12-25] MEDS: AMIODARONE 200 MG TAB PO SCH (08:39)
--- NOTE | 2016-12-25 11:38 | PN ---
Date/Time of Note Date/Time of Note DATE: 12/25/16 TIME: 11:34 Assessment/Plan VTE Prophylaxis VTE Prophylaxis Intervention: other (coumadin) Lines/Catheters IV Catheter Type (from Nrs): Saline Lock Urinary Cath still in place: No Assessment/Plan Assessment/Plan 1. CVA with impaired mobility/gait/ADLs/cognition and aphasia. Continue PT/OT/ ST. Lower body dressing and toileting improved, now SBA. Grooming and upper body dressing independent. Continue secondary stroke prevention per internal medicine and neurology. 2. History of Atrial fibrillation. Medically managed per internal medicine, on anticoagulation. 3. Status post pacemaker placement. 4. Hypertension. BP controlled. Continue to monitor. 5. Coronary artery disease. Continue medical management. 6. Diabetes mellitus. Blood sugars controlled. Endocrinology medically managing. 7. Hyperlipidemia. Continue statin. 8. Chronic kidney disease. Monitor renal function. Avoid nephrotoxic agents. 9. Anemia. Monitor hemoglobin/hematocrit. 10. History of colon CA status post resection. 11. History of asthma. Stable. Continue breathing treatments as needed. Subjective 24 Hr Interval Summary Free Text/Dictation Rehab progress note Subjective: Denies acute complaints. ROS: No headache, no dizziness, no chest pain, no shortness of breath, no abdominal pain, no nausea, no chills, no constipation. Exam/Review of Systems Vital Signs Vitals Vital Signs Date Time Temp Pulse Resp B/P Pulse Ox O2 Delivery O2 Flow Rate FiO2 12/24/16 19:28 98.5 66 20 143/63 95 12/23/16 07:10 Room Air Intake and Output 12/24/16 12/24/16 12/25/16 15:00 23:00 07:00 Intake Total 1270 ml 360 ml 300 ml Balance 1270 ml 360 ml 300 ml Exam General: Awake, alert, no acute distress CV: Regular rate, audible s1s2 Lungs: Clear to auscultation, no crackles, no wheezing Abdomen soft, nontender, +bowel sounds Extremities: No cyanosis. No new swelling. Neuro: No new focal changes. Follows simple commands. Results Result Diagram: 12/23/16 0625 12/23/16 0625 Results 24 hrs Laboratory Tests Test 12/24/16 11:50 12/24/16 16:54 12/24/16 20:06 12/25/16 06:20 Bedside Glucose 167 128 119 INR International Normalized Ratio 3.34 Prothrombin Time 34.4 H Prothrombin Time Ratio 2.7 Test 12/25/16 07:49 Bedside Glucose 143 Medications Medications Current Medications Acetaminophen (Tylenol Tab) 650 mg Q6H PRN PO PAIN LEVEL 1-3 OR FEVER; Start at 22:11 Amiodarone HCl (Cordarone) 200 mg DAILY PO Last administered on 12/25/16 08:39 ; Admin Dose 200 MG; Start 12/16/16 at 22:11 Glucose (Glutose) 15 gm Q15M PRN PO DECREASED GLUCOSE; Start 12/16/16 at 22:11 Glucose (Glutose) 22.5 gm Q15M PRN PO DECREASED GLUCOSE; Start 12/16/16 at 22:11 Dextrose (D50w Syringe) 25 ml Q15M PRN IV DECREASED GLUCOSE; Start 12/16/16 at 22:11 Dextrose (D50w Syringe) 50 ml Q15M PRN IV DECREASED GLUCOSE; Start 12/16/16 at 22:11 Glucagon (Glucagen) 1 mg Q15M PRN IM DECREASED GLUCOSE; Start 12/16/16 at 22:11 Glucose (Glutose) 15 gm Q15M PRN BUCCAL DECREASED GLUCOSE; Start 12/16/16 at 22: 11 Atorvastatin Calcium (Lipitor) 80 mg HS PO Last administered on 12/24/16 20:22 ; Admin Dose 80 MG; Start 12/16/16 at 22:11 Furosemide (Lasix) 20 mg DAILY PO Last administered on 12/25/16 08:39; Admin Dose 20 MG; Start 12/18/16 at 09:00 Linagliptin (Tradjenta) 5 mg DAILY PO Last administered on 12/25/16 08:39; Admin Dose 5 MG; Start 12/18/16 at 11:30 Betamethasone/ Clotrimazole (Lotrisone Cr) 1 applic BID PRN TOP ITCHING; Start 12/19/16 at 14:00 Insulin Glargine (Lantus) 15 unit DAILY@20 SC Last administered on 12/24/16 20 :25; Admin Dose 15 UNIT; Start 12/21/16 at 20:00 Loratadine (Claritin) 10 mg DAILY PO Last administered on 12/25/16 08:31; Admin Dose 10 MG; Start 12/23/16 at 09:00 Nystatin (Nystatin Oint) 1 applic DAILY PRN TOP itching, groin Last administered on 12/23/16t 01:56; Admin Dose 1 APPLIC; Start 12/22/16 at 21:30 MISTY RUBIO Dec 25, 2016 11:38
--- NOTE | 2016-12-25 19:01 | SP ---
DATE OF PROCEDURE: REFERRING PHYSICIAN: Dr. Valdez Thank you, Dr. Valdez, for asking me to follow up the patient. HISTORY OF PRESENT ILLNESS: The patient is a 76-year-old lady admitted to [facility] after she suffered from acute onset of stroke, atrial fibrillation, anticoagulation, which the patient switched to Coumadin and followed by INR. The patient needed acute rehab for continuat ion of her treatment. CURRENT MEDICATIONS: Include: 1. Lantus 20 mg once a day. 2. Lasix 20 mg once a day. 3. Albuterol 2 puffs twice a day as needed. 4. Tylenol 650 mg once a day. 5. Colace 100 mg twice a day. 6. Cordarone 200 mg twice a day. 7. Lipitor 80 mg once a day PHYSICAL EXAMINATION: On exam today, the patient is alert, awake, and follows simple commands NERV ES: Cranial nerve II: Pupils equal on both sides, reactive to light. Cranial nerves III, IV, and : Extraocular muscles intact. Cranial nerve V: Equal sensation to face. Cranial nerve VII: Sy mmetrical face. Cranial nerve VIII: Decreased hearing bilaterally. Cranial nerve X: Elevates pal ate. Cranial nerve XI: Elevates shoulders 5/5: Cranial nerve-XII intact: With straight tongue. MOTOR: Decreased right hand admitting representative, 4+/5. Sensation decreased for glove and sock area for light touc h and temperature. COORDINATION: [id number] test intact. HEART: Regular rate and rhythm. LUNGS: Equal breath sounds. ABDOMEN: Soft, relaxed, nondistended. No tenderness. ASSESSMENT AND PLAN: 1. The patient is a 76-year-old status post acute stroke. We will continue the patient on Coumadin and keep the INR at the level of 2 to 3 with monitoring of her Coumadin level accordingly. 2. History of atrial fibrillation with the patient followed by cardiology consultation. Will give the patient anticoagulation for stroke prevention. 3. History of hypertension. Keep the blood pressure at the level of 140/90 to avoid any extension of the stroke. 4. History of seizure. Give the patient seizure precaution and aspiration precaution. 5. History of dyslipidemia. Keep the patient on Lipitor 80 mg and follow up as an outpatient for l ipid panel. 6. History of diabetes. We counseled the patient about ____ and hemoglobin A1c and keep on sliding scale insulin while she was in rehabilitation. Again, thank you for asking me to see the patient with you. Dictated By: KAITLIN JACK MD NA/NTS Conf#: [id number] DID#: [id number] CC: ZHOU VALDEZ MD;*EndCC*
--- NOTE | 2016-12-25 19:56 | CONS ---
DATE OF ADMISSION: 12/16/2016 DATE OF CONSULTATION: 12/25/2016 PSYCHOLOGY-INDIVIDUAL [id number] The patient was seen up in her wheelchair. The patient is preparing for being discharged tomorrow. The patient is motivated to return home and try to increase her level of functioning. The patient does have members of her family coming over to help in the very beginning to try to help her be able to handle things. The patient is attempting to do as much as she can without overdoing things. Th e patient does feel like she has made progress while she is in the program and is feeling positive a bout being discharged. I worked with the patient to encourage her to continue to work on her physic al and emotional health. Dictated By: TRANG LOPEZ PHD RIO/MENDEL Conf#: [id number] DID#: [id number]
--- NOTE | 2016-12-25 19:59 | CONS ---
Date/Time of Note Date/Time of Note DATE: 12/25/16 TIME: 19:44 Assessment/Plan Assessment/Plan Problems: (1) Type 2 diabetes mellitus without complications Status: Chronic Comment: Excellent glycemic control. Continue current insulin doses. On discharge patient may change her home metformin can be discontinued in favor of linagliptin which she is currently taking due to the impairment in her serum creatinine. Qualifiers: Diabetes mellitus nursing home insulin use: with intermediate frame tender use Qualified Code : E11.9 - Type 2 diabetes mellitus without complication, with long-term current use of insulin Consultation Date/Type/Reason Admit Date/Time Dec 16, 2016 at 21:30 Initial Consult Date 12/18/16 Type of Consultation: Endocrinology Reason for Consultation T2DM Referring Provider: ZHOU VALDEZ MD 24 HR Interval Summary Constitutional: no complaints Detailed Summary Respiratory: no complaints Cardiovascular: no complaints Gastrointestinal: no complaints Genitourinary: no complaints Musculoskeletal: no complaints Neurologic: no complaints Psychological: depression Exam/Review of Systems Vital Signs Vitals VS - Last 72 Hours, by Label Date Time Temp Pulse Resp B/P Pulse Ox O2 Delivery O2 Flow Rate FiO2 12/24/16 19:28 98.5 66 20 143/63 95 12/24/16 08:06 98.3 75 18 149/70 98 12/23/16 19:27 98.5 65 19 147/74 97 12/23/16 07:30 98.6 60 20 121/57 93 12/23/16 07:10 98.6 20 121/57 95 Room Air 12/22/16 20:09 98.8 63 18 140/66 97 Room Air Vital Signs Date Time Temp Pulse Resp B/P Pulse Ox O2 Delivery O2 Flow Rate FiO2 12/24/16 19:28 98.5 66 20 143/63 95 12/23/16 07:10 Room Air Intake and Output 12/24/16 12/24/16 12/25/16 15:00 23:00 07:00 Intake Total 1270 ml 360 ml 300 ml Balance 1270 ml 360 ml 300 ml Exam Constitutional: alert, obese, oriented Psych: nl mood/affect, no complaints Respiratory: clear to auscultation, normal air movement Cardiovascular: nl pulses, regular rate and rhythm, No edema, No murmurs/extra sounds, No rub Gastrointestinal: bowel sounds, nl liver, spleen, non-tender, soft, No mass, No rebound or guarding Musculoskeletal: nl extremities to inspection Extremities: normal pulses Neurological: STRAIGHT LINE EDGER II-XII intact, nl mental status, nl speech, nl strength Additional Comments Bedside Glucose - 72 Hours Test 12/22/16 20:05 12/23/16 07:38 12/23/16 12:13 12/23/16 17:02 Bedside Glucose 146mg/dL (70-220) 145mg/dL (70-220) 128mg/dL (70-220) 130mg/dL (70-220) Test 12/23/16 20:58 12/24/16 07:41 12/24/16 11:50 12/24/16 16:54 Bedside Glucose 143mg/dL (70-220) 123mg/dL (70-220) 167mg/dL (70-220) 128mg/dL (70-220) Test 12/24/16 20:06 12/25/16 07:49 12/25/16 11:33 12/25/16 17:17 Bedside Glucose 119mg/dL (70-220) 143mg/dL (70-220) 100mg/dL (70-220) 98mg/dL (70-220) Results Result Diagram: 12/23/16 0625 12/23/16 0625 Results 24 hrs Laboratory Tests Test 12/24/16 20:06 12/25/16 06:20 12/25/16 07:49 12/25/16 11:33 Bedside Glucose 119 143 100 INR International Normalized Ratio 3.34 Prothrombin Time 34.4 H Prothrombin Time Ratio 2.7 Test 12/25/16 17:17 Bedside Glucose 98 Medications Medications Current Medications Acetaminophen (Tylenol Tab) 650 mg Q6H PRN PO PAIN LEVEL 1-3 OR FEVER; Start at 22:11 Amiodarone HCl (Cordarone) 200 mg DAILY PO Last administered on 12/25/16t 08:39 ; Admin Dose 200 MG; Start 12/16/16 at 22:11 Glucose (Glutose) 15 gm Q15M PRN PO DECREASED GLUCOSE; Start 12/16/16 at 22:11 Glucose (Glutose) 22.5 gm Q15M PRN PO DECREASED GLUCOSE; Start 12/16/16 at 22:11 Dextrose (D50w Syringe) 25 ml Q15M PRN IV DECREASED GLUCOSE; Start 12/16/16 at 22:11 Dextrose (D50w Syringe) 50 ml Q15M PRN IV DECREASED GLUCOSE; Start 12/16/16 at 22:11 Glucagon (Glucagen) 1 mg Q15M PRN IM DECREASED GLUCOSE; Start 12/16/16 at 22:11 Glucose (Glutose) 15 gm Q15M PRN BUCCAL DECREASED GLUCOSE; Start 12/16/16 at 22: 11 Atorvastatin Calcium (Lipitor) 80 mg HS PO Last administered on 12/24/16 20:22 ; Admin Dose 80 MG; Start 12/16/16 at 22:11 Furosemide (Lasix) 20 mg DAILY PO Last administered on 12/25/16 08:39; Admin Dose 20 MG; Start 12/18/16 at 09:00 Linagliptin (Tradjenta) 5 mg DAILY PO Last administered on 12/25/16 08:39; Admin Dose 5 MG; Start 12/18/16 at 11:30 Betamethasone/ Clotrimazole (Lotrisone Cr) 1 applic BID PRN TOP ITCHING; Start 12/19/16 at 14:00 Insulin Glargine (Lantus) 15 unit DAILY@20 SC Last administered on 12/24/16 20 :25; Admin Dose 15 UNIT; Start 12/21/16 at 20:00 Loratadine (Claritin) 10 mg DAILY PO Last administered on 12/25/16 08:31; Admin Dose 10 MG; Start 12/23/16 at 09:00 Nystatin (Nystatin Oint) 1 applic DAILY PRN TOP itching, groin Last administered on 12/23/16 01:56; Admin Dose 1 APPLIC; Start 12/22/16 at 21:30 LANDY SINGH MD Dec 25, 2016 19:57
[2016-12-25] MEDS: ATORVASTATIN 80 MG TAB PO SCH (20:30)
[2016-12-25] MEDS: INSULIN GLARGINE [LANtus] 3 ML PEN SC SCH (20:32)
[2016-12-25 20:37] VITALS: BP 129/62; RESP 18
[2016-12-26] MEDS: INSULIN ASPART [NOVOLOG] 3 ML PEN SC SCH ×4 (07:35→12:38)
[2016-12-26 08:00] VITALS: BP 158/74; PULSE 64; RESP 18
[2016-12-26] MEDS: LINAGLIPTIN 5 MG TABLET PO SCH (08:34)
[2016-12-26] MEDS: AMIODARONE 200 MG TAB PO SCH (08:35)
[2016-12-26] MEDS: LORATADINE 10 MG TAB PO SCH (08:35)
[2016-12-26] MEDS: FUROSEMIDE 20 MG TAB PO SCH (08:35)
[2016-12-26 10:33] LABS: INR 2.61; PROTIME 28.3 Sec (12.2-14.2); PT RATIO 2.2
--- NOTE | 2016-12-26 11:54 | CONS ---
Date/Time of Note Date/Time of Note DATE: 12/26/16 TIME: 11:54 Consult Date/Type/Reason Admit Date/Time Dec 16, 2016 at 21:30 Type of Consultation: Endocrinology Ordering Provider: ZHOU VALDEZ MD Objective Vital Signs Date Time Temp Pulse Resp B/P Pulse Ox O2 Delivery O2 Flow Rate FiO2 12/26/16 08:00 98.4 64 18 158/74 94 Room Air Intake and Output 12/25/16 12/25/16 12/26/16 15:00 23:00 07:00 Intake Total 720 ml 360 ml 320 ml Balance 720 ml 360 ml 320 ml Results/Medications Result Diagram: 12/23/1625 12/23/1625 Results 24 hrs Laboratory Tests Test 12/25/16 17:17 12/25/16 20:29 12/26/16 07:48 12/26/16 10:06 Bedside Glucose 98 125 132 INR International Normalized Ratio 2.61 Prothrombin Time 28.3 H Prothrombin Time Ratio 2.2 Medications Current Medications Acetaminophen (Tylenol Tab) 650 mg Q6H PRN PO PAIN LEVEL 1-3 OR FEVER; Start at 22:11 Amiodarone HCl (Cordarone) 200 mg DAILY PO Last administered on 12/26/16 08:35 ; Admin Dose 200 MG; Start 12/16/16 at 22:11 Glucose (Glutose) 15 gm Q15M PRN PO DECREASED GLUCOSE; Start 12/16/16 at 22:11 Glucose (Glutose) 22.5 gm Q15M PRN PO DECREASED GLUCOSE; Start 12/16/16 at 22:11 Dextrose (D50w Syringe) 25 ml Q15M PRN IV DECREASED GLUCOSE; Start 12/16/16 at 22:11 Dextrose (D50w Syringe) 50 ml Q15M PRN IV DECREASED GLUCOSE; Start 12/16/16 at 22:11 Glucagon (Glucagen) 1 mg Q15M PRN IM DECREASED GLUCOSE; Start 12/16/16 at 22:11 Glucose (Glutose) 15 gm Q15M PRN BUCCAL DECREASED GLUCOSE; Start 12/16/16 at 22: 11 Atorvastatin Calcium (Lipitor) 80 mg HS PO Last administered on 12/25/16 20:30 ; Admin Dose 80 MG; Start 12/16/16 at 22:11 Furosemide (Lasix) 20 mg DAILY PO Last administered on 12/26/16 08:35; Admin Dose 20 MG; Start 12/18/16 at 09:00 Linagliptin (Tradjenta) 5 mg DAILY PO Last administered on 12/26/16 08:34; Admin Dose 5 MG; Start 12/18/16 at 11:30 Betamethasone/ Clotrimazole (Lotrisone Cr) 1 applic BID PRN TOP ITCHING; Start 12/19/16 at 14:00 Insulin Glargine (Lantus) 15 unit DAILY@20 SC Last administered on 12/25/16 20 :32; Admin Dose 15 UNIT; Start 12/21/16 at 20:00 Loratadine (Claritin) 10 mg DAILY PO Last administered on 12/26/16 08:35; Admin Dose 10 MG; Start 12/23/16 at 09:00 Nystatin (Nystatin Oint) 1 applic DAILY PRN TOP itching, groin Last administered on 12/23/16 01:56; Admin Dose 1 APPLIC; Start 12/22/16 at 21:30 SOPHIE HALL MD Dec 26, 2016 11:54
[2016-12-26] MEDS ORDERED: WARFARIN 2 MG TAB PO ONE (13:30)
--- NOTE | 2016-12-26 13:31 | CONS ---
Date/Time of Note Date/Time of Note DATE: 12/26/16 TIME: 13:21 Assessment/Plan Assessment/Plan Chief Complaint/Hosp Course #1 cerebrovascular accident with altered mental status, altered speech pattern, facial twitching. All of these symptoms have improved. She is overall doing much better. Her speech is more fluent and the facial twitching has decreased significantly. she is up walking with PT and doing well . The patient is here for the comprehensive rehabilitation program.She is going home tomorrow and I will review her medications then. She is doing well and can be discharged to home today . She will see me next week in my office . #2 history of atrial fibrillation Her INR is in therapeutic range . She was previously on Xarelto. She was found to have moderate mitral stenosis and switched to Coumadin by the fish filleter. Will keep INR in therapeutic range . #3 hypertension blood pressure is controlled #4 type 2 diabetes mellitus, her blood sugars are under control.. #5 cardiac pacemaker #6 coronary artery disease status post stent placement #7 anemia #8 history of breast cancer #9 history of colon cancer status post resection. Problems: Consultation Date/Type/Reason Admit Date/Time Dec 16, 2016 at 21:30 Type of Consultation: Endocrinology Referring Provider: ZHOU VALDEZ MD 24 HR Interval Summary Free Text/Dictation She is feeling well . She is ready to go home . Constitutional: improved, no complaints Exam/Review of Systems Vital Signs Vitals Vital Signs Date Time Temp Pulse Resp B/P Pulse Ox O2 Delivery O2 Flow Rate FiO2 12/26/16 08:00 98.4 64 18 158/74 94 Room Air Intake and Output 12/25/16 12/25/16 12/26/16 15:00 23:00 07:00 Intake Total 720 ml 360 ml 320 ml Balance 720 ml 360 ml 320 ml Exam Constitutional: alert, obese, oriented Psych: nl mood/affect, no complaints Respiratory: clear to auscultation, normal air movement Cardiovascular: regular rate and rhythm Gastrointestinal: soft Musculoskeletal: nl extremities to inspection Results Result Diagram: 12/23/16 0625 12/23/16 0625 Results 24 hrs Laboratory Tests Test 12/25/16 17:17 12/25/16 20:29 12/26/16 07:48 12/26/16 10:06 Bedside Glucose 98 125 132 INR International Normalized Ratio 2.61 Prothrombin Time 28.3 H Prothrombin Time Ratio 2.2 Test 12/26/16 12:12 Bedside Glucose 118 Medications Medications Current Medications Acetaminophen (Tylenol Tab) 650 mg Q6H PRN PO PAIN LEVEL 1-3 OR FEVER; Start at 22:11 Amiodarone HCl (Cordarone) 200 mg DAILY PO Last administered on 12/26/16 08:35 ; Admin Dose 200 MG; Start 12/16/16 at 22:11 Glucose (Glutose) 15 gm Q15M PRN PO DECREASED GLUCOSE; Start 12/16/16 at 22:11 Glucose (Glutose) 22.5 gm Q15M PRN PO DECREASED GLUCOSE; Start 12/16/16 at 22:11 Dextrose (D50w Syringe) 25 ml Q15M PRN IV DECREASED GLUCOSE; Start 12/16/16 at 22:11 Dextrose (D50w Syringe) 50 ml Q15M PRN IV DECREASED GLUCOSE; Start 12/16/16 at 22:11 Glucagon (Glucagen) 1 mg Q15M PRN IM DECREASED GLUCOSE; Start 12/16/16 at 22:11 Glucose (Glutose) 15 gm Q15M PRN BUCCAL DECREASED GLUCOSE; Start 12/16/16 at 22: 11 Atorvastatin Calcium (Lipitor) 80 mg HS PO Last administered on 12/25/16 20:30 ; Admin Dose 80 MG; Start 12/16/16 at 22:11 Furosemide (Lasix) 20 mg DAILY PO Last administered on 12/26/16 08:35; Admin Dose 20 MG; Start 12/18/16 at 09:00 Linagliptin (Tradjenta) 5 mg DAILY PO Last administered on 12/26/16 08:34; Admin Dose 5 MG; Start 12/18/16 at 11:30 Betamethasone/ Clotrimazole (Lotrisone Cr) 1 applic BID PRN TOP ITCHING; Start 12/19/16 at 14:00 Insulin Glargine (Lantus) 15 unit DAILY@20 SC Last administered on 12/25/16 20 :32; Admin Dose 15 UNIT; Start 12/21/16 at 20:00 Loratadine (Claritin) 10 mg DAILY PO Last administered on 12/26/16 08:35; Admin Dose 10 MG; Start 12/23/16 at 09:00 Nystatin (Nystatin Oint) 1 applic DAILY PRN TOP itching, groin Last administered on 12/23/16t 01:56; Admin Dose 1 APPLIC; Start 12/22/16 at 21:30 ZHOU VALDEZ MD Dec 26, 2016 13:30
[2016-12-26 13:50] VITALS: BP 137/77; PULSE 65; RESP 18
== END 2016-12-26 13:55 | disposition home health service (06) | DRG 57 ==
LOC: VRC 21:30
PROVIDERS: ADMIT Physical Medicine & Rehabilitation; ATTEND Internal Medicine
PROC: F07Z5ZZ Bed Mobility Treatment (ICD-10-PCS; principal; 2016-12-16)
PROC: F08Z2ZZ Grooming/Personal Hygiene Treatment (ICD-10-PCS; 2016-12-16)
PROC: F06Z6ZZ Communicative/Cognitive Integration Skills Treatment (ICD-10-PCS; 2016-12-16)
DX: I69.928 Other speech and language deficits following unspecified cerebrovascular disease (principal); E11.22 Type 2 diabetes mellitus with diabetic chronic kidney disease; I48.91 Unspecified atrial fibrillation; G62.9 Polyneuropathy, unspecified; D64.9 Anemia, unspecified; E78.5 Hyperlipidemia, unspecified; I12.9 Hypertensive chronic kidney disease with stage 1 through stage 4 chronic kidney disease, or unspecified chronic kidney disease; F32.9 Major depressive disorder, single episode, unspecified; I69.998 Other sequelae following unspecified cerebrovascular disease; I69.920 Aphasia following unspecified cerebrovascular disease; R20.8 Other disturbances of skin sensation; I25.10 Atherosclerotic heart disease of native coronary artery without angina pectoris; K21.9 Gastro-esophageal reflux disease without esophagitis; R41.82 Altered mental status, unspecified; N18.9 Chronic kidney disease, unspecified; Z85.038 Personal history of other malignant neoplasm of large intestine; Z95.0 Presence of cardiac pacemaker; J45.909 Unspecified asthma, uncomplicated; Z79.01 Long term (current) use of anticoagulants; Z79.4 Long term (current) use of insulin; Z85.3 Personal history of malignant neoplasm of breast; R26.89 Other abnormalities of gait and mobility
CPT/HCPCS: 80048; 80053; 81001; 81003; 82040; 82962; 83735; 84100; 85025; 85610; 87081; 87086; 92507; 92523; 92610; 95852; 97110; 97112; 97116; 97150; 97162; 97165; 97530; 97535; J1815

== ENCOUNTER 2018-04-22 08:09 | Day surgery (SDC) | END 2018-04-22 15:12 | disposition home or self-care (01) ==